=== PATIENT | female | born 1935 | race Caucasian/White ===

== ENCOUNTER → 2016-07-26 | Outpatient (CLI) | payer MEDICARE, OTHER ==
[~2016-07-26] MED LIST: ACET50TAOT PO; ALBU17IN2 NEB; ALBUTEROL INH; AMLO5TAB2 PO; ASPI81TA85 PO; B-12500T2 PO; CALC500T36 PO; CEFT250T8 PO; CLOP75TA2 PO; COLA100C PO; COLA50CA3 PO; COUM2.5T11 PO; DEPA500T2 PO; FLON0.054; LEVO25TA5 PO; LEVO25TA7 PO; MAGN400T5 PO; MICR10CA PO; MILKSUS PO; MIRA3350 PO; MUCI600T34 PO; MULTTAB4 PO; PLAV75TA38 PO; PROA1AER INH; PROTPAK PO; REFR1DRO8 OU; SENO8.6T2 PO; TYLE325T5 PO; VITA-130 PO; VITA1CAP2 PO; VITMTA PO; ZETI10TA2 PO; ZETI10TA21 PO
[2016-07-26 13:00] LABS: BLOOD UREA NITROGEN 23 MG/DL (7-18); CREATININE FOR GFR 0.85 MG/DL (0.55-1.02); GLOMERULAR FILTRATION RATE > 60.0 (>32)
== END ==
LOC: M LAB 11:36
PROVIDERS: ATTEND Otolaryngology
DX: R22.1 Localized swelling, mass and lump, neck (principal)

== ENCOUNTER → 2016-07-26 | Outpatient (CLI) | payer MEDICARE, OTHER | LOC: M LAB 08:46 | PROVIDERS: ATTEND Otolaryngology | DX: R22.1 Localized swelling, mass and lump, neck (principal) ==

== ENCOUNTER → 2016-07-31 | Outpatient (CLI) | payer MEDICARE, OTHER ==
[~2016-07-31] MED LIST changes: +ISOVUE-370 76% 100ML VIAL (Q9967) As Ordered ONE
--- NOTE | 2016-07-31 11:10 | REP ---
CT NECK WITH CONTRAST: HISTORY: Neck mass. Contrast: Isovue 370, 75 mL. A BB was placed on the anterior neck at the level of the thyroid gland. The naso- and oropharynx and subglottic trachea are normal in appearance. A small 3.5 mm right internal pharyngocele is present. A small 2 mm left internal laryngocele is present. The salivary and thyroid glands are normal. Small lymph nodes less than 1 cm in size are present in the posterior triangles and submandibular areas. Atherosclerotic calcification is present at the right carotid bifurcation. Degenerative change is present in the cervical spine. The lung apices are clear. A retention cyst or polyp is present in the right maxillary sinus. IMPRESSION: There is no neck mass or adenopathy. Signed by Dwayne De La Cruz MD 07/31/2016 11:17 A
== END ==
LOC: M RAD 09:01
PROVIDERS: ATTEND Otolaryngology
DX: R22.1 Localized swelling, mass and lump, neck (principal)
CPT/HCPCS: 70491; Q9967

== ENCOUNTER → 2016-08-02 | Outpatient (CLI) | payer MEDICARE, OTHER ==
[~2016-08-02] MED LIST changes: -ISOVUE-370 76% 100ML VIAL (Q9967) As Ordered ONE
--- NOTE | 2016-08-02 13:02 | REPMRS ---
Patient History The patient states she had a clinical breast exam in 06/28 Patient is postmenopausal and has history of skin cancer. Family history of breast cancer in sister at age 50 or over, unknown cancer in maternal uncle at age 50 or over, and breast cancer in niece at age 50 or over. Benign excisional biopsy of the left breast, 2001. Digital Woman Screen Mammo: August 02, 2016 - Exam #: [id number] Bilateral CC and MLO view(s) were taken. Technologist: Pattie Washington, Technologist Prior study comparison: June 29, 2015, digital woman screen mammo performed at [facility]. July 13, 2014, digital woman screen mammo performed at [facility]. FINDINGS: There are scattered fibroglandular densities. There has been no change in the appearance of the mammogram from the prior studies. There is a mild amount of residual fibroglandular tissue which is fairly symmetric. There is no interval development of dominant mass, architectural distortion, or clustered microcalcification suggestive of malignancy. ASSESSMENT: BI-RADS/ACR category 1 mammogram. Negative. Recommendation Routine screening mammogram in 1 year (for women over age 40). This mammogram was interpreted with the aid of an FDA-approved computer-aided dectection system. Electronically Signed By: Blair Coker MD 08/02/16 [id number]
== END ==
LOC: M WHC 11:56
PROVIDERS: ATTEND Obstetrics & Gynecology
DX: Z12.31 Encounter for screening mammogram for malignant neoplasm of breast (principal); Z13.820 Encounter for screening for osteoporosis; Z80.3 Family history of malignant neoplasm of breast; Z85.828 Personal history of other malignant neoplasm of skin

== ENCOUNTER → 2016-08-05 | Outpatient (REF) | payer MEDICARE, OTHER ==
[2016-08-05 14:40] LABS: ALBUMIN 3.5 GM/DL (3.2-5.2); ALBUMIN/GLOBULIN RATIO 1.17 (1.00-1.93); ALKALINE PHOSPHATASE 126 U/L (45-117); ALT/SGPT 35 U/L (12-78); ANION GAP 7 MEQ/L (8-16); AST/SGOT 31 U/L (15-37); BILIRUBIN,TOTAL 0.4 MG/DL (0.2-1.0); BLOOD UREA NITROGEN 19 MG/DL (7-18); CALCIUM LEVEL 8.4 MG/DL (8.8-10.2); CARBON DIOXIDE LEVEL 31 MEQ/L (21-32); CHLORIDE LEVEL 106 MEQ/L (98-107); CHOLESTEROL LEVEL 174 MG/DL (<200); CREATININE FOR GFR 0.82 MG/DL (0.55-1.02); FREE T4 0.99 NG/DL (0.76-1.46); GLOMERULAR FILTRATION RATE > 60.0 (>32); GLUCOSE, FASTING 95 MG/DL (83-110); POTASSIUM SERUM 4.1 MEQ/L (3.5-5.1); SODIUM LEVEL 144 MEQ/L (136-145); TOTAL PROTEIN 6.5 GM/DL (6.4-8.2); TRIGLYCERIDES LEVEL 97 MG/DL (<150)
== END ==
LOC: M SFHCPLAZ 09:34
PROVIDERS: ATTEND Family Medicine
DX: I11.9 Hypertensive heart disease without heart failure (principal); E03.9 Hypothyroidism, unspecified; E11.29 Type 2 diabetes mellitus with other diabetic kidney complication; E55.9 Vitamin D deficiency, unspecified

== ENCOUNTER → 2016-08-22 | Outpatient (CLI) | payer MEDICARE, OTHER ==
[~2016-08-22] MED LIST changes: -COLA100C PO; +COLA100C3 PO
--- NOTE | 2016-08-28 11:12 | DEXA ---
AP SPINE L1 - L4 0.692 -4.1 -1.4 LT FEMUR TOTAL 0.442 -4.5 -1.8 RT FEMUR TOTAL Right hip screws in place. TOTAL BODY TOTAL OTHER DUAL FEMUR FRAX* ASSESSMENT Risk factors: History of fracture (adult). 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 The density of the spine has decreased 13.7% since the initial exam on 1998. The spine density has decreased 15.7% since the most recent exam on 07/12/2013. The density of the left hip has decreased 20.1% since the initial exam on 1998. The density of the left hip has decreased 17.2% since the most recent exam on . FOLLOW-UP: Recommendation for the next bone density exam: 2 years. MEGHA
== END ==
LOC: M WHC 14:01
PROVIDERS: ATTEND Obstetrics & Gynecology
DX: Z13.820 Encounter for screening for osteoporosis (principal); M81.0 Age-related osteoporosis without current pathological fracture

== ENCOUNTER 2016-09-25 10:51 | Emergency (ER) | payer MEDICARE, OTHER ==
[~2016-09-25] VITALS: Ht 157.5 cm; Wt 37.2 kg
[2016-09-25] MEDS ORDERED: ASPIRIN 81 MG CHEW TABLET PO ONE (11:00)
[2016-09-25] MEDS ORDERED: CLON0.5T PO (11:10)
[2016-09-25] MEDS ORDERED: ASPI1TAB PO (11:10)
[2016-09-25] MEDS ORDERED: CINN500C9 PO (11:10)
[2016-09-25] MEDS ORDERED: CLOP75TA2 PO (11:10)
[2016-09-25] MEDS ORDERED: ERGO500014 PO (11:10)
[2016-09-25] MEDS ORDERED: ATOR40TA PO (11:10)
[2016-09-25] MEDS ORDERED: TURMCAP PO (11:10)
[2016-09-25 11:27] LABS: BASO % 0.8 % (0.0-1.0); EOS # 0.2 K/mm3 (0.0-0.50); EOS % 3.4 % (0.0-3.0); LARGE UNSTAINED CELL # 0.1 K/mm3 (0.0-0.4); LARGE UNSTAINED CELL % 2.2 % (0.0-4.0); LYMPH # 1.2 K/mm3 (1.5-4.5); LYMPH % 18.8 % (24.0-44.0); MEAN CORPUSCULAR HEMOGLOBIN 30.9 pg (27.0-33.0); MEAN CORPUSCULAR HGB CONC 33.6 g/dl (32.0-36.5); MONO # 0.5 K/mm3 (0.0-0.8); MONO % 7.9 % (0.0-5.0); NEUTROPHILS # 3.9 K/mm3 (1.8-7.7); NEUTROPHILS % 66.9 % (36.0-66.0); PLATELET COUNT, AUTOMATED 254 k/mm3 (150-450); RED CELL DISTRIBUTION WIDTH 13.2 % (11.5-14.5); WHITE BLOOD COUNT 5.8 K/mm3 (4.0-10.0)
[2016-09-25 11:52] LABS: ANION GAP 7 MEQ/L (8-16); BLOOD UREA NITROGEN 25 MG/DL (7-18); CALCIUM LEVEL 8.2 MG/DL (8.8-10.2); CARBON DIOXIDE LEVEL 28 MEQ/L (21-32); CHLORIDE LEVEL 105 MEQ/L (98-107); CREATININE FOR GFR 0.89 MG/DL (0.55-1.02); GLOMERULAR FILTRATION RATE > 60.0 (>32); GLUCOSE, FASTING 64 MG/DL (83-110); POTASSIUM SERUM 4.1 MEQ/L (3.5-5.1); SODIUM LEVEL 140 MEQ/L (136-145)
[2016-09-25] MEDS ORDERED: ISOVUE-370 76% 100ML VIAL (Q9967) As Ordered ONE (12:22)
--- NOTE | 2016-09-25 12:25 | REP ---
Portable chest: Single view. History: Chest pain Comparison study: October 16, 2015. Findings: The lungs are somewhat hyperinflated but free of infiltrate. Pleural angles are sharp. Heart size is normal. There is minimal linear fibrosis versus plate-like atelectasis in the right base. The aorta is calcific. No significant bony abnormality is seen. Impression: Hyperinflation. Minimal linear fibrosis versus plate-like atelectasis right base. Otherwise no active disease. Signed by Pankaj Muhammad MD 09/25/2016 12:55 P
--- NOTE | 2016-09-25 12:51 | REP ---
Clinical: Chest pain. Comparison: 09/28/2015. Technique: Axial contrast enhanced images from the thoracic inlet to the upper abdomen using 100 ml Isovue 370 intravenous contrast material with multiplanar re-formations. Findings: Satisfactory enhancement of the pulmonary vasculature is achieved and no filling defects are identified to suggest pulmonary embolus. Further evaluation of the mediastinum demonstrates atherosclerotic changes to the thoracic aorta without aneurysm or dissection and relatively normal appearance of the heart/pericardium. The bilateral lung ocampo demonstrate chronic emphysematous changes, scattered interstitial changes and scarring, as well as bronchiectasis and chronic mucous plugging primarily involving the basilar right middle lobe and lingula. Findings appear relatively similar to 09/28/2015. There is a new irregular nodular density in the anterobasilar right lower lobe measuring roughly 15 mm which warrants followup. No obvious adenopathy. No pleural effusion. No pneumothorax. Skeletal structures demonstrate age-related degenerative changes. Impression: 1. No evidence for pulmonary embolus. 2. Diffuse chronic changes as described above including foci of chronic mucous plugging predominate right middle lobe and lingula. 3. 15 mm irregular area of density in the anterobasilar right lower lobe warrants followup examination in 3-6 months. Signed by Finn Escobar MD 09/25/2016 12:43 P
[2016-09-25 16:13] VITALS: BP 135/64
--- NOTE | 2016-09-26 08:00 | ECGEPIP ---
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
== END 2016-09-25 16:15 | disposition home or self-care (01) ==
LOC: M ED 13:14
DX: R07.9 Chest pain, unspecified (principal); I10 Essential (primary) hypertension; E78.5 Hyperlipidemia, unspecified; M81.0 Age-related osteoporosis without current pathological fracture
CPT/HCPCS: 36415; 71010; 71275; 80048; 82550; 82553; 83880; 84484; 85025; 93005; 93041; 94760; 99285; Q9967

== ENCOUNTER → 2016-11-25 | Outpatient (CLI) | payer MEDICARE, OTHER ==
[~2016-11-25] MED LIST changes: +ASPI1TAB PO; +ATOR40TA75 PO; +CINN500C9 PO; +CLON0.5T PO; -COLA100C3 PO; +COLA100C5 PO; -COUM2.5T11 PO; +COUM2.5T17 PO; +ERGO500014 PO; +FOSA70TA PO; -MUCI600T34 PO; +MUCI600T37 PO; +PLAV1TAB2 PO; -PLAV75TA38 PO; -PROA1AER INH; +PROAAER10 INH; -SENO8.6T2 PO; +SENO8.6T5 PO; +TURMCAP PO; -VITA-130 PO; +VITA500T PO; -ZETI10TA2 PO; +ZETI10TA30 PO
--- NOTE | 2016-11-25 07:50 | REP ---
CT of the chest without IV contrast: Comparisons are 09/25/2016, 09/28/2015 and 11/24/2012. On 09/25/2069 there is a spiculated 15 mm nodule like density inferiorly anteriorly in the right lung on image 77. On the study today this density has decreased in size and density compatible with transient atelectasis. There are several other nodule like densities inferiorly in the right middle lobe associated with bronchi compatible with bronchial mucus plugging. This is unchanged from both prior studies. Bronchiectasis is again noted, particularly in the lower lobes. The mucous plugging involves ectatic bronchi predominately in the right middle lobe and lingula, as previously. There is extensive bullous replacement lung parenchyma compatible with bullous emphysema. This is unchanged. There are no acute infiltrates or effusions. There is a new focal density in the right lower lobe on image 70 measuring 16 x 6 mm, not present previously, focal atelectasis versus lung nodule. Follow-up is recommended. There is no mediastinal adenopathy. No axillary adenopathy. In the absence of IV contrast the study is insensitive for hilar adenopathy. The thoracic aorta is unremarkable. Cardiac size is normal. The visualized upper abdominal contents are unremarkable. There is no adrenal mass. Impression: The spiculated nodular density noted on 09/25/2016 in the right lung has decreased in size and density, compatible with resolving atelectasis. There is bronchiectasis, predominately in the lingula and right middle lobe as previously. There are focal zones of bronchial mucous plugging within the areas of bronchiectasis, as previously. There is a new focal elongated density posteriorly in the right lung on image 70 measuring 6 x 16 mm. This could represent atelectasis or a new lung nodule. Follow-up is recommended. There is bullous replacement lung parenchyma as previously compatible with bullous emphysema. Signed by Blair Chow MD 11/25/2016 07:42 A
== END ==
LOC: M RAD 07:09
PROVIDERS: ATTEND Internal Medicine
DX: R91.1 Solitary pulmonary nodule (principal)

== ENCOUNTER → 2016-12-19 | Outpatient (REF) | payer MEDICARE, OTHER | LOC: M LAB REF 12:03 → M SFHCLERA 12:03 | PROVIDERS: ATTEND Dermatology | DX: D22.5 Melanocytic nevi of trunk (principal) | CPT/HCPCS: 11100; 17000; 17110; 88305; G0463 ==

== ENCOUNTER → 2016-12-23 | Outpatient (CLI) | payer MEDICARE, OTHER ==
[2016-12-23 16:22] LABS: BLOOD UREA NITROGEN 27 MG/DL (7-18); CREATININE FOR GFR 0.79 MG/DL (0.55-1.02); GLOMERULAR FILTRATION RATE > 60.0 (>32)
== END ==
LOC: M LAB 15:12
PROVIDERS: ATTEND Otolaryngology
DX: R49.8 Other voice and resonance disorders (principal)

== ENCOUNTER → 2016-12-24 | Outpatient (CLI) | payer MEDICARE, OTHER ==
[~2016-12-24] MED LIST changes: +ISOVUE-370 76% 100ML VIAL (Q9967) As Ordered ONE
--- NOTE | 2016-12-24 18:35 | REP ---
Soft tissue CT study of the neck with IV contrast: History: Dysphonia. Question neoplasm. Comparison study is from July 31, 2016. CT contrast dose: 75 ml of Isovue [address] findings: No glottic or subglottic airway lesion is seen. There is, however, a supraglottic low density nodular thickening in the left side of the epiglottis. This measures 10 mm in right to left dimension by 7 mm anterior to posterior by 9 mm cranial to caudal. This is not apparent on a previous study. Thyroid lobes are homogeneous and unchanged in configuration. Submandibular and parotid glands are unremarkable and symmetric. There is a mucous retention cyst in the right maxillary sinus. Visualized paranasal sinuses are otherwise clear. Impression: Low density cyst or nodule in the left side of the epiglottis, 7 x 10 x 9 mm. Supraglottic malignancy cannot be excluded. Consider endoscopic and histologic correlation. No adenopathy. Signed by Pankaj Muhammad MD 12/25/2016 07:59 A
== END ==
LOC: M RAD 16:23
PROVIDERS: ATTEND Otolaryngology
DX: R93.3 Abnormal findings on diagnostic imaging of other parts of digestive tract (principal)
CPT/HCPCS: 70491; Q9967

== ENCOUNTER → 2017-01-21 | Outpatient (REF) | payer MEDICARE, OTHER ==
[~2017-01-21] MED LIST changes: -ISOVUE-370 76% 100ML VIAL (Q9967) As Ordered ONE
[2017-01-21 12:40] LABS: ALBUMIN 3.7 GM/DL (3.2-5.2); ALBUMIN/GLOBULIN RATIO 1.06 (1.00-1.93); ALKALINE PHOSPHATASE 106 U/L (45-117); ALT/SGPT 38 U/L (12-78); ANION GAP 4 MEQ/L (8-16); AST/SGOT 23 U/L (15-37); BILIRUBIN,TOTAL 0.5 MG/DL (0.2-1.0); BLOOD UREA NITROGEN 26 MG/DL (7-18); CALCIUM LEVEL 9.2 MG/DL (8.8-10.2); CARBON DIOXIDE LEVEL 33 MEQ/L (21-32); CHLORIDE LEVEL 105 MEQ/L (98-107); CREATININE FOR GFR 0.88 MG/DL (0.55-1.02); GLOMERULAR FILTRATION RATE > 60.0 (>32); GLUCOSE, FASTING 56 MG/DL (83-110); POTASSIUM SERUM 4.3 MEQ/L (3.5-5.1); SODIUM LEVEL 142 MEQ/L (136-145); TOTAL PROTEIN 7.2 GM/DL (6.4-8.2)
== END ==
LOC: M SFHCPLAZ 09:49
PROVIDERS: ATTEND Internal Medicine
DX: I11.9 Hypertensive heart disease without heart failure (principal)
CPT/HCPCS: 36415; 80053; G0463

== ENCOUNTER 2017-01-30 08:51 | Day surgery (SDC) | payer MEDICARE, OTHER ==
[~2017-01-30] VITALS: Ht 158.8 cm; Wt 38.0 kg
[2017-01-30] VITALS (7 sets, daily range): BP systolic 116–141; BP diastolic 58–73
[~2017-01-30 08:51] MED LIST changes: -FOSA70TA PO
[2017-01-30] MEDS ORDERED: dexameTHASONE 4 MG/ML 1ML VIAL (J1100) IV ONE (09:00)
[2017-01-30] MEDS ORDERED: LR 1,000 ML IV SCH ×3 (09:00→12:00)
[2017-01-30] MEDS ORDERED: FOSA70TA PO (09:39)
[2017-01-30] MEDS ORDERED: LIDOCAINE 2% INJ 100 MG/5 ML SDV (FOR ANES.) As Ordered ONE (09:46)
[2017-01-30] MEDS ORDERED: PROPOFOL 200 MG/20 ML VIAL As Ordered ONE ×2 (09:46→10:20)
[2017-01-30] MEDS ORDERED: ROCURONIUM BROMIDE 50 MG/5 ML VIAL/SYRINGE As Ordered ONE (09:46)
[2017-01-30] MEDS ORDERED: ONDANSETRON 4MG/2ML VIAL (J2405) As Ordered ONE (09:46)
[2017-01-30] MEDS ORDERED: MIDAZOLAM INJ 2 MG/2 ML VIAL (J2250) As Ordered ONE (09:46)
[2017-01-30] MEDS ORDERED: fentaNYL 100 MCG/2 ML INJECTION (J3010) As Ordered ONE (09:46)
[2017-01-30] MEDS ORDERED: OXYMETAZOLINE NASAL SPRAY (AFRIN) As Ordered ONE (10:30)
[2017-01-30] MEDS ORDERED: LIDOCAINE W/EPINEPHRINE 1% 20ML VIAL As Ordered ONE (10:30)
[2017-01-30] MEDS ORDERED: ONDANSETRON 4MG/2ML VIAL (J2405) IV PRN ×2 (12:00→16:15)
[2017-01-30] MEDS ORDERED: fentaNYL 100 MCG/2 ML INJECTION (J3010) IV PRN (12:00)
[2017-01-30] MEDS ORDERED: CEPHALEXIN 500 MG CAP PO ONE (12:00)
[2017-01-30] MEDS ORDERED: ACETAMINOPHEN/CODEINE 12.5 ML UDC As Ordered ONE (12:43)
[2017-01-30] MEDS ORDERED: ACETAMINOPHEN/CODEINE 12.5 ML UDC PO ONE (13:00)
[2017-01-30] MEDS ORDERED: ACETAMINOPHEN TAB 650MG DOSE (2X325MG) PO PRN (16:15)
[2017-01-30] MEDS: CEPHALEXIN 500 MG CAP PO SCH (22:34)
[2017-01-31] MEDS: CHLORHEXIDINE ORAL RINSE 0.12%/15ML 120ML BOTTLE SSP SCH ×2 (01:18→09:00)
[2017-01-31 02:00] VITALS: BP 115/57
[2017-01-31 06:00] VITALS: BP 117/58
[2017-01-31] MEDS ORDERED: CHLORHEXIDINE ORAL RINSE 0.12%/15ML 120ML BOTTLE SSP SCH ×2 (09:00→09:18)
[2017-01-31] MEDS: CEPHALEXIN 500 MG CAP PO SCH (09:30)
--- NOTE | 2017-02-06 23:16 | RO ---
DATE OF PROCEDURE: 01/30/2017 PREOPERATIVE DIAGNOSES: Left epiglottic mass and dysphagia. POSTOPERATIVE DIAGNOSES: Left epiglottic mass and dysphagia. PROCEDURE PERFORMED: Direct suspension microlaryngoscopy with biopsy and marsupialization of the left epiglottic cyst on the lingual side. SURGEON: Darrel Vyas MD FURNITURE REMOVALIST: ANESTHESIA: General. CLINICAL PREAMBLE: This 81-year-old man presented to the office complaining of globus sensation in the throat. CT neck revealed a cystic-like mass over the left epiglottic base on the lingual side. Management options including the surgery listed above have been discussed. Patient understood and consented to the procedure. DESCRIPTION OF PROCEDURE: Patient was identified in preoperative holding and brought to the operating room in stable condition. In supine position on the operating room table, patient received general anesthesia followed orotracheal intubation without incident. Patient was prepped and draped in the usual fashion for the procedure. Upper dentition was protected using a tooth guard. Bimanual palpation of the oral cavity, oral tongue, base of tongue, lateral and posterior pharyngeal wall were unremarkable for mass lesion. Using the Dedo-Pilling laryngoscope, inspection of the mucosa of the oral cavity, oropharynx, base of tongue, epiglottis, aryepiglottic fold, piriform sinuses, true and false cords, as well as postcricoid region was carried out. A swelling with smooth mucosa was noted over the lingual aspect of the base of the left epiglottis. The Dedo-Pilling laryngoscope was suspended on a New stand. Microforceps were used to obtain biopsy from the swelling at the base of the left epiglottis on the lingual side. Whitish fluid was expressed upon biopsy of the mass. Additional decompression of the cystic mass was then carried out. Hemostasis was achieved using cottonoid pledgets soaked in Afrin solution. At the end of procedure, sponge and instruments counts were correct. No complication was encountered. Estimated blood loss less than 1 mL. General anesthesia was reversed. Patient was extubated and brought to recovery room in stable condition.
== END 2017-01-31 14:18 | disposition home or self-care (01) ==
LOC: M SDC 08:51 → M MSPAV 17:15 → M SDC 01-31 14:18
PROVIDERS: ATTEND Otolaryngology
DX: R22.1 Localized swelling, mass and lump, neck (principal); R49.8 Other voice and resonance disorders; G25.0 Essential tremor; I10 Essential (primary) hypertension; E78.5 Hyperlipidemia, unspecified; K21.9 Gastro-esophageal reflux disease without esophagitis; J44.9 Chronic obstructive pulmonary disease, unspecified; Z79.899 Other long term (current) drug therapy; Z88.0 Allergy status to penicillin; Z88.2 Allergy status to sulfonamides; Z88.8 Allergy status to other drugs, medicaments and biological substances
CPT/HCPCS: 31536; 88305; J1100; J2250; J2405; J3010

== ENCOUNTER → 2017-02-12 | Outpatient (REF) | payer MEDICARE, OTHER ==
[~2017-02-12] MED LIST changes: +FOSA70TA PO
== END ==
LOC: M SFHCLERA 11:36
PROVIDERS: ATTEND Dermatology
DX: L82.1 Other seborrheic keratosis (principal)

== ENCOUNTER → 2017-02-27 | Outpatient (CLI) | payer MEDICARE, OTHER ==
--- NOTE | 2017-02-27 15:03 | REP ---
CT CHEST WITHOUT IV CONTRAST: CT chest performed without IV contrast. Sagittal and coronal reconstruction images are performed. Comparison made with multiple prior exams, most recent of which is 11/25/2016. Bilateral emphysematous changes are noted with scattered interstitial fibrosis. There is mild scattered bronchiectasis bilaterally which is of a more moderate degree in the right middle lobe and in the lingula. Inspissated secretions and opacification are seen in the dilated bronchioles, particularly in the right middle lobe and lingula with mild increase since prior study. There is no pericardial effusion. The heart is normal in size. There is mild pericardial fluid. No definite adenopathy is seen. There are atherosclerotic calcifications of the thoracic aorta without aneurysm. There appears to be a tiny cyst in the right lobe of the liver. There are degenerative changes of the spine. IMPRESSION: Chronic emphysematous and bronchiectatic changes. Inspissated secretions in the dilated bronchioles in the right middle lobe and left lower lobe have slightly increased since prior study. The elongated opacity in the right lower lobe, for which followup was recommended on the prior study, is no longer seen and appears to have represented a band-like area of atelectasis or infiltrate which has resolved. Signed by Blair Coker MD 02/27/2017 05:37 P
== END ==
LOC: M RAD 12:23
PROVIDERS: ATTEND Internal Medicine Pulmonary Disease
DX: R91.8 Other nonspecific abnormal finding of lung field (principal)

== ENCOUNTER → 2017-06-23 | Outpatient (CLI) | payer MEDICARE, OTHER ==
[2017-06-23 09:56] LABS: ESTIMATED AVERAGE GLUCOSE 126 MG/DL (60-110)
[2017-06-23 10:18] LABS: ALBUMIN 3.6 GM/DL (3.2-5.2); ALBUMIN/GLOBULIN RATIO 1.03 (1.00-1.93); ALKALINE PHOSPHATASE 103 U/L (45-117); ALT/SGPT 32 U/L (12-78); ANION GAP 7 MEQ/L (8-16); AST/SGOT 26 U/L (7-37); BILIRUBIN,TOTAL 0.4 MG/DL (0.2-1.0); BLOOD UREA NITROGEN 28 MG/DL (7-18); CALCIUM LEVEL 8.5 MG/DL (8.8-10.2); CARBON DIOXIDE LEVEL 31 MEQ/L (21-32); CHLORIDE LEVEL 106 MEQ/L (98-107); CHOLESTEROL LEVEL 186 MG/DL (<200); CHOLESTEROL RISK RATIO 2.325 (<5); GLOMERULAR FILTRATION RATE 56.5 (>32); GLUCOSE, FASTING 88 MG/DL (70-100); HDL CHOLESTEROL 80 MG/DL (>40); LDL CHOLESTEROL 93.8 MG/DL (<100); MAGNESIUM LEVEL 2.4 MG/DL (1.8-2.4); NON-HDL-C 106 MG/DL; POTASSIUM SERUM 4.6 MEQ/L (3.5-5.1); SODIUM LEVEL 144 MEQ/L (136-145); TOTAL PROTEIN 7.1 GM/DL (6.4-8.2); TRIGLYCERIDES LEVEL 61 MG/DL (<150)
[2017-06-23 10:28] LABS: MALB URINE SIEMENS 26.7 MG/L; MAU/CREAT RATIO 14.4 MCG/MG (0.0-30.0)
== END ==
LOC: M LAB 08:29
DX: I11.9 Hypertensive heart disease without heart failure (principal); Z79.899 Other long term (current) drug therapy
CPT/HCPCS: 83735

== ENCOUNTER → 2017-08-07 | Outpatient (CLI) | payer MEDICARE, OTHER | LOC: M WHC 09:36 | DX: Z12.31 Encounter for screening mammogram for malignant neoplasm of breast (principal); Z80.3 Family history of malignant neoplasm of breast | CPT/HCPCS: 77067 ==

== ENCOUNTER 2017-10-26 02:20 | Inpatient (IN) | payer MEDICARE, OTHER ==
[2017-10-26 03:19] LABS: BASO % 0.7 % (0.0-1.0); EOS # 0.2 10^3/uL (0.0-0.50); EOS % 4.3 % (0.0-3.0); HEMATOCRIT 42.7 % (36.0-47.0); HEMOGLOBIN 14.3 g/dl (12.0-15.5); IMMATURE GRANULOCYTE % 0.2 % (0-3.0); LYMPH # 1.1 10^3/uL (1.5-4.5); LYMPH % 19.6 % (24.0-44.0); MEAN CORPUSCULAR HEMOGLOBIN 30.2 pg (27.0-33.0); MEAN CORPUSCULAR HGB CONC 33.5 g/dl (32.0-36.5); MEAN CORPUSCULAR VOLUME 90.1 fl (80.0-96.0); MONO # 0.6 10^3/uL (0.0-0.8); NEUTROPHILS # 3.7 10^3/uL (1.8-7.7); NEUTROPHILS % 65.2 % (36.0-66.0); PLATELET COUNT, AUTOMATED 194 10^3/uL (150-450); RED BLOOD COUNT 4.74 10^6/uL (4.00-5.40); WHITE BLOOD COUNT 5.6 10^3/uL (4.0-10.0)
[2017-10-26] MEDS ORDERED: ISOVUE-370 76% 100ML VIAL (Q9967) As Ordered (03:54)
[2017-10-26 04:00] LABS: ANION GAP 8 MEQ/L (8-16); BLOOD UREA NITROGEN 34 MG/DL (7-18); CALCIUM LEVEL 8.4 MG/DL (8.8-10.2); CARBON DIOXIDE LEVEL 29 MEQ/L (21-32); CHLORIDE LEVEL 107 MEQ/L (98-107); CREATININE FOR GFR 0.94 MG/DL (0.55-1.30); GLOMERULAR FILTRATION RATE > 60.0 (>32); GLUCOSE, FASTING 106 MG/DL (70-100); NT-PRO BNP 120 PG/ML (<450); POTASSIUM SERUM 3.9 MEQ/L (3.5-5.1); SODIUM LEVEL 144 MEQ/L (136-145)
[2017-10-26] MEDS: LevoFLOXacin IV 500 MG in APPROPRIATE DILUENT 1 EA IV (07:52)
[2017-10-26 09:20] LABS: INR 0.93; PROTHROMBIN TIME 12.5 SECONDS (12.4-14.5)
[2017-10-26] MEDS ORDERED: PILL CRUSHER/CUTTER 1 EACH XX (10:15)
[2017-10-26] MEDS: AZITHROMYCIN INJ 500 MG, VIAL MATE ADAPTER 1 EACH in D5W 250 ML IV (10:45)
[2017-10-26] MEDS: amLODIPine 10 MG TAB PO (10:51)
[2017-10-26] MEDS: ASPIRIN 81 MG ENTERIC TAB PO (10:51)
[2017-10-26] MEDS: LEVOTHYROXINE 25MCG TABLET (0.025MG) PO (10:51)
[2017-10-26] MEDS: POTASSIUM CHLORIDE 10 MEQ SR TABLET PO ×2 (10:51→21:46)
[2017-10-26] MEDS: ATORVASTATIN 20 MG TAB PO (10:52)
[2017-10-26] MEDS: ACETAMINOPHEN TAB 650MG DOSE (2X325MG) PO ×2 (10:53→22:02)
[2017-10-26] MEDS: cefTRIAXone SOD 2 GM in D5W MINI-BAG PLUS 50 ML IV (13:00)
[2017-10-26] MEDS: CLOPIDOGREL 75 MG TAB PO (14:15)
[2017-10-26] MEDS: clonazePAM 0.5 MG TAB PO (21:55)
[2017-10-27 06:29] LABS: BASO % 0.4 % (0.0-1.0); EOS # 0.2 10^3/uL (0.0-0.50); EOS % 2.5 % (0.0-3.0); HEMATOCRIT 38.9 % (36.0-47.0); HEMOGLOBIN 12.9 g/dl (12.0-15.5); IMMATURE GRANULOCYTE % 0.3 % (0-3.0); LYMPH # 0.8 10^3/uL (1.5-4.5); LYMPH % 8.6 % (24.0-44.0); MEAN CORPUSCULAR HEMOGLOBIN 29.9 pg (27.0-33.0); MEAN CORPUSCULAR HGB CONC 33.2 g/dl (32.0-36.5); MONO # 0.8 10^3/uL (0.0-0.8); MONO % 8.1 % (0.0-5.0); NEUTROPHILS # 7.4 10^3/uL (1.8-7.7); NEUTROPHILS % 80.1 % (36.0-66.0); PLATELET COUNT, AUTOMATED 166 10^3/uL (150-450); RED BLOOD COUNT 4.32 10^6/uL (4.00-5.40); RED CELL DISTRIBUTION WIDTH 14.3 % (11.5-14.5); WHITE BLOOD COUNT 9.2 10^3/uL (4.0-10.0)
[2017-10-27 06:52] LABS: ALT/SGPT 32 U/L (12-78); ANION GAP 5 MEQ/L (8-16); AST/SGOT 23 U/L (7-37); BLOOD UREA NITROGEN 18 MG/DL (7-18); CARBON DIOXIDE LEVEL 28 MEQ/L (21-32); CHLORIDE LEVEL 109 MEQ/L (98-107); CREATININE FOR GFR 0.77 MG/DL (0.55-1.30); GLOMERULAR FILTRATION RATE > 60.0 (>32); GLUCOSE, FASTING 99 MG/DL (70-100); POTASSIUM SERUM 3.4 MEQ/L (3.5-5.1); SODIUM LEVEL 142 MEQ/L (136-145)
[2017-10-27 06:53] LABS: ALBUMIN 2.9 GM/DL (3.2-5.2); ALBUMIN/GLOBULIN RATIO 0.83 (1.00-1.93); ALKALINE PHOSPHATASE 82 U/L (45-117); BILIRUBIN,TOTAL 0.5 MG/DL (0.2-1.0); MAGNESIUM LEVEL 2.3 MG/DL (1.8-2.4); TOTAL PROTEIN 6.4 GM/DL (6.4-8.2)
[2017-10-27] MEDS: amLODIPine 10 MG TAB PO (08:14)
[2017-10-27] MEDS: ATORVASTATIN 20 MG TAB PO (08:14)
[2017-10-27] MEDS: POTASSIUM CHLORIDE 10 MEQ SR TABLET PO ×2 (08:14→21:56)
[2017-10-27] MEDS: CLOPIDOGREL 75 MG TAB PO (08:15)
[2017-10-27] MEDS: LEVOTHYROXINE 25MCG TABLET (0.025MG) PO (08:15)
[2017-10-27] MEDS: ASPIRIN 81 MG ENTERIC TAB PO (08:15)
[2017-10-27] MEDS: AZITHROMYCIN INJ 500 MG, VIAL MATE ADAPTER 1 EACH in D5W 250 ML IV (10:00)
[2017-10-27] MEDS: cefTRIAXone SOD 2 GM in D5W MINI-BAG PLUS 50 ML IV (11:00)
[2017-10-27] MEDS: clonazePAM 0.5 MG TAB PO (22:18)
[2017-10-27] MEDS: ACETAMINOPHEN TAB 650MG DOSE (2X325MG) PO (22:18)
[2017-10-28 06:58] LABS: BASO % 0.6 % (0.0-1.0); EOS # 0.3 10^3/uL (0.0-0.50); EOS % 3.9 % (0.0-3.0); HEMATOCRIT 38.4 % (36.0-47.0); HEMOGLOBIN 12.8 g/dl (12.0-15.5); IMMATURE GRANULOCYTE % 0.3 % (0-3.0); LYMPH # 0.8 10^3/uL (1.5-4.5); LYMPH % 11.8 % (24.0-44.0); MEAN CORPUSCULAR HGB CONC 33.3 g/dl (32.0-36.5); MEAN CORPUSCULAR VOLUME 90.1 fl (80.0-96.0); MONO # 0.8 10^3/uL (0.0-0.8); MONO % 11.2 % (0.0-5.0); NEUTROPHILS # 4.9 10^3/uL (1.8-7.7); NEUTROPHILS % 72.2 % (36.0-66.0); PLATELET COUNT, AUTOMATED 160 10^3/uL (150-450); RED BLOOD COUNT 4.26 10^6/uL (4.00-5.40); RED CELL DISTRIBUTION WIDTH 14.2 % (11.5-14.5); WHITE BLOOD COUNT 6.9 10^3/uL (4.0-10.0)
[2017-10-28 07:31] LABS: FOLATE 15.8 NG/ML (>5.4)
[2017-10-28 07:31] LABS: VITAMIN B12 LEVEL 913 PG/ML (247-911)
[2017-10-28 07:42] LABS: ALBUMIN 2.7 GM/DL (3.2-5.2); ALBUMIN/GLOBULIN RATIO 0.73 (1.00-1.93); ALKALINE PHOSPHATASE 81 U/L (45-117); ALT/SGPT 32 U/L (12-78); ANION GAP 8 MEQ/L (8-16); AST/SGOT 20 U/L (7-37); BILIRUBIN,TOTAL 0.4 MG/DL (0.2-1.0); BLOOD UREA NITROGEN 14 MG/DL (7-18); CARBON DIOXIDE LEVEL 26 MEQ/L (21-32); CHLORIDE LEVEL 111 MEQ/L (98-107); CREATININE FOR GFR 0.64 MG/DL (0.55-1.30); GLOMERULAR FILTRATION RATE > 60.0 (>32); GLUCOSE, FASTING 89 MG/DL (70-100); MAGNESIUM LEVEL 2.2 MG/DL (1.8-2.4); POTASSIUM SERUM 3.5 MEQ/L (3.5-5.1); SODIUM LEVEL 145 MEQ/L (136-145); TOTAL PROTEIN 6.4 GM/DL (6.4-8.2)
[2017-10-28] MEDS ORDERED: LevoFLOXacin IV 750 MG in APPROPRIATE DILUENT 1 EA IV (08:00)
[2017-10-28] MEDS: LEVOTHYROXINE 25MCG TABLET (0.025MG) PO (08:56)
[2017-10-28] MEDS ORDERED: CEFUROXIME 500 MG TAB PO (09:00)
[2017-10-28] MEDS: CLOPIDOGREL 75 MG TAB PO (10:01)
[2017-10-28] MEDS: ATORVASTATIN 20 MG TAB PO (10:01)
[2017-10-28] MEDS: ASPIRIN 81 MG ENTERIC TAB PO (10:01)
[2017-10-28] MEDS: POTASSIUM CHLORIDE 10 MEQ SR TABLET PO ×2 (10:02→21:22)
[2017-10-28] MEDS: amLODIPine 10 MG TAB PO (10:02)
[2017-10-28] MEDS: CEFDINIR 300 MG CAP (OMNICEF) PO ×2 (10:02→21:22)
[2017-10-28] MEDS: AZITHROMYCIN 250 MG TAB PO (10:02)
[2017-10-28] MEDS: SENOKOT S TAB PO (10:03)
[2017-10-28] MEDS: clonazePAM 0.5 MG TAB PO (21:23)
[2017-10-28] MEDS: ACETAMINOPHEN TAB 650MG DOSE (2X325MG) PO (21:23)
[2017-10-29] MEDS: LEVOTHYROXINE 25MCG TABLET (0.025MG) PO (05:31)
[2017-10-29 06:43] LABS: BASO # 0.1 10^3/uL (0.0-0.2); BASO % 1.1 % (0.0-1.0); EOS # 0.4 10^3/uL (0.0-0.50); EOS % 6.5 % (0.0-3.0); HEMATOCRIT 37.9 % (36.0-47.0); HEMOGLOBIN 12.8 g/dl (12.0-15.5); IMMATURE GRANULOCYTE % 0.2 % (0-3.0); LYMPH # 0.7 10^3/uL (1.5-4.5); LYMPH % 12.3 % (24.0-44.0); MEAN CORPUSCULAR HEMOGLOBIN 30.4 pg (27.0-33.0); MEAN CORPUSCULAR HGB CONC 33.8 g/dl (32.0-36.5); MONO # 0.6 10^3/uL (0.0-0.8); MONO % 11.4 % (0.0-5.0); NEUTROPHILS # 3.7 10^3/uL (1.8-7.7); NEUTROPHILS % 68.5 % (36.0-66.0); PLATELET COUNT, AUTOMATED 180 10^3/uL (150-450); RED BLOOD COUNT 4.21 10^6/uL (4.00-5.40); RED CELL DISTRIBUTION WIDTH 14.2 % (11.5-14.5); WHITE BLOOD COUNT 5.4 10^3/uL (4.0-10.0)
[2017-10-29 07:10] LABS: ALBUMIN 2.7 GM/DL (3.2-5.2); ALBUMIN/GLOBULIN RATIO 0.75 (1.00-1.93); ALKALINE PHOSPHATASE 75 U/L (45-117); ALT/SGPT 31 U/L (12-78); ANION GAP 6 MEQ/L (8-16); AST/SGOT 19 U/L (7-37); BILIRUBIN,TOTAL 0.3 MG/DL (0.2-1.0); BLOOD UREA NITROGEN 17 MG/DL (7-18); CALCIUM LEVEL 8.1 MG/DL (8.8-10.2); CARBON DIOXIDE LEVEL 27 MEQ/L (21-32); CHLORIDE LEVEL 111 MEQ/L (98-107); CREATININE FOR GFR 0.69 MG/DL (0.55-1.30); GLOMERULAR FILTRATION RATE > 60.0 (>32); GLUCOSE, FASTING 91 MG/DL (70-100); POTASSIUM SERUM 3.6 MEQ/L (3.5-5.1); SODIUM LEVEL 144 MEQ/L (136-145); TOTAL PROTEIN 6.3 GM/DL (6.4-8.2)
[2017-10-29] MEDS ORDERED: ISOVUE-370 76% 100ML VIAL (Q9967) As Ordered (08:58)
[2017-10-29] MEDS: POTASSIUM CHLORIDE 10 MEQ SR TABLET PO ×2 (09:44→21:08)
[2017-10-29] MEDS: amLODIPine 10 MG TAB PO (09:44)
[2017-10-29] MEDS: ATORVASTATIN 20 MG TAB PO (09:44)
[2017-10-29] MEDS: CLOPIDOGREL 75 MG TAB PO (09:44)
[2017-10-29] MEDS: ASPIRIN 81 MG ENTERIC TAB PO (09:45)
[2017-10-29] MEDS: CEFDINIR 300 MG CAP (OMNICEF) PO ×2 (09:45→21:07)
[2017-10-29] MEDS: AZITHROMYCIN 250 MG TAB PO (09:45)
[2017-10-29] MEDS: clonazePAM 0.5 MG TAB PO (22:09)
[2017-10-30] MEDS: LEVOTHYROXINE 25MCG TABLET (0.025MG) PO (05:47)
[2017-10-30 07:03] LABS: BASO # 0.1 10^3/uL (0.0-0.2); BASO % 0.8 % (0.0-1.0); EOS # 0.1 10^3/uL (0.0-0.50); EOS % 1.1 % (0.0-3.0); HEMATOCRIT 40.2 % (36.0-47.0); HEMOGLOBIN 13.7 g/dl (12.0-15.5); IMMATURE GRANULOCYTE % 0.2 % (0-3.0); LYMPH # 0.8 10^3/uL (1.5-4.5); LYMPH % 7.8 % (24.0-44.0); MEAN CORPUSCULAR HEMOGLOBIN 30.5 pg (27.0-33.0); MEAN CORPUSCULAR HGB CONC 34.1 g/dl (32.0-36.5); MEAN CORPUSCULAR VOLUME 89.5 fl (80.0-96.0); MONO # 0.6 10^3/uL (0.0-0.8); MONO % 6.4 % (0.0-5.0); NEUTROPHILS # 8.1 10^3/uL (1.8-7.7); NEUTROPHILS % 83.7 % (36.0-66.0); PLATELET COUNT, AUTOMATED 224 10^3/uL (150-450); RED BLOOD COUNT 4.49 10^6/uL (4.00-5.40); RED CELL DISTRIBUTION WIDTH 13.9 % (11.5-14.5); WHITE BLOOD COUNT 9.7 10^3/uL (4.0-10.0)
[2017-10-30 07:17] LABS: ALKALINE PHOSPHATASE 86 U/L (45-117); ALT/SGPT 30 U/L (12-78); ANION GAP 8 MEQ/L (8-16); AST/SGOT 21 U/L (7-37); BILIRUBIN,TOTAL 0.3 MG/DL (0.2-1.0); BLOOD UREA NITROGEN 24 MG/DL (7-18); CALCIUM LEVEL 8.2 MG/DL (8.8-10.2); CARBON DIOXIDE LEVEL 23 MEQ/L (21-32); CHLORIDE LEVEL 111 MEQ/L (98-107); CREATININE FOR GFR 0.82 MG/DL (0.55-1.30); GLOMERULAR FILTRATION RATE > 60.0 (>32); GLUCOSE, FASTING 117 MG/DL (70-100); MAGNESIUM LEVEL 2.1 MG/DL (1.8-2.4); POTASSIUM SERUM 3.8 MEQ/L (3.5-5.1); SODIUM LEVEL 142 MEQ/L (136-145); TOTAL PROTEIN 7.3 GM/DL (6.4-8.2)
[2017-10-30] MEDS: ASPIRIN 81 MG ENTERIC TAB PO (10:37)
[2017-10-30] MEDS: CEFDINIR 300 MG CAP (OMNICEF) PO ×2 (10:37→20:24)
[2017-10-30] MEDS: guaiFENesin ER 600 MG TAB PO (10:38)
[2017-10-30] MEDS: CLOPIDOGREL 75 MG TAB PO (10:38)
[2017-10-30] MEDS: POTASSIUM CHLORIDE 10 MEQ SR TABLET PO ×2 (10:38→20:23)
[2017-10-30] MEDS: amLODIPine 10 MG TAB PO (10:38)
[2017-10-30] MEDS: AZITHROMYCIN 250 MG TAB PO (10:38)
[2017-10-30] MEDS: ATORVASTATIN 20 MG TAB PO (10:39)
[2017-10-30] MEDS: SENOKOT S TAB PO (10:44)
[2017-10-30] MEDS: ALBUTEROL SULFATE 2.5 MG/0.5 ML INH NEB SOLN NEB ×2 (15:31→20:49)
[2017-10-30] MEDS: ACETAMINOPHEN TAB 650MG DOSE (2X325MG) PO (18:36)
[2017-10-30] MEDS: clonazePAM 0.5 MG TAB PO (21:49)
[2017-10-31] MEDS: ALBUTEROL SULFATE 2.5 MG/0.5 ML INH NEB SOLN NEB ×4 (02:00→21:36)
[2017-10-31] MEDS: LEVOTHYROXINE 25MCG TABLET (0.025MG) PO (05:21)
[2017-10-31] MEDS: ACETAMINOPHEN TAB 650MG DOSE (2X325MG) PO ×3 (05:23→22:17)
[2017-10-31 07:05] LABS: BASO # 0.1 10^3/uL (0.0-0.2); BASO % 1.2 % (0.0-1.0); EOS # 0.2 10^3/uL (0.0-0.50); EOS % 3.7 % (0.0-3.0); HEMATOCRIT 37.2 % (36.0-47.0); HEMOGLOBIN 12.7 g/dl (12.0-15.5); IMMATURE GRANULOCYTE % 0.2 % (0-3.0); LYMPH # 0.9 10^3/uL (1.5-4.5); LYMPH % 14.4 % (24.0-44.0); MEAN CORPUSCULAR HEMOGLOBIN 30.3 pg (27.0-33.0); MEAN CORPUSCULAR HGB CONC 34.1 g/dl (32.0-36.5); MEAN CORPUSCULAR VOLUME 88.8 fl (80.0-96.0); MONO # 0.6 10^3/uL (0.0-0.8); MONO % 10.5 % (0.0-5.0); NEUTROPHILS # 4.1 10^3/uL (1.8-7.7); PLATELET COUNT, AUTOMATED 224 10^3/uL (150-450); RED BLOOD COUNT 4.19 10^6/uL (4.00-5.40); RED CELL DISTRIBUTION WIDTH 14.1 % (11.5-14.5); WHITE BLOOD COUNT 5.9 10^3/uL (4.0-10.0)
[2017-10-31 07:31] LABS: ALBUMIN 2.8 GM/DL (3.2-5.2); ALBUMIN/GLOBULIN RATIO 0.68 (1.00-1.93); ALKALINE PHOSPHATASE 82 U/L (45-117); ALT/SGPT 26 U/L (12-78); ANION GAP 8 MEQ/L (8-16); AST/SGOT 17 U/L (7-37); BILIRUBIN,TOTAL 0.4 MG/DL (0.2-1.0); BLOOD UREA NITROGEN 17 MG/DL (7-18); CALCIUM LEVEL 8.2 MG/DL (8.8-10.2); CARBON DIOXIDE LEVEL 25 MEQ/L (21-32); CHLORIDE LEVEL 111 MEQ/L (98-107); CREATININE FOR GFR 0.73 MG/DL (0.55-1.30); GLOMERULAR FILTRATION RATE > 60.0 (>32); GLUCOSE, FASTING 94 MG/DL (70-100); MAGNESIUM LEVEL 2.2 MG/DL (1.8-2.4); POTASSIUM SERUM 3.9 MEQ/L (3.5-5.1); SODIUM LEVEL 144 MEQ/L (136-145); TOTAL PROTEIN 6.9 GM/DL (6.4-8.2)
[2017-10-31] MEDS: ASPIRIN 81 MG ENTERIC TAB PO (08:59)
[2017-10-31] MEDS: AZITHROMYCIN 250 MG TAB PO (08:59)
[2017-10-31] MEDS: CEFDINIR 300 MG CAP (OMNICEF) PO (08:59)
[2017-10-31] MEDS: ATORVASTATIN 20 MG TAB PO (08:59)
[2017-10-31] MEDS: POTASSIUM CHLORIDE 10 MEQ SR TABLET PO ×2 (08:59→20:35)
[2017-10-31] MEDS: amLODIPine 10 MG TAB PO (09:02)
[2017-10-31] MEDS: SODIUM CHLORIDE NASAL 0.65% SPRAY BTL (OCEAN) ×2 (16:30→20:35)
[2017-10-31] MEDS: ONDANSETRON 4MG/2ML VIAL (J2405) IV (18:40)
[2017-10-31] MEDS: clonazePAM 0.5 MG TAB PO (20:35)
[2017-11-01] MEDS: ALBUTEROL SULFATE 2.5 MG/0.5 ML INH NEB SOLN NEB ×4 (02:23→21:19)
[2017-11-01] MEDS: LEVOTHYROXINE 25MCG TABLET (0.025MG) PO (06:22)
[2017-11-01 07:23] LABS: BASO # 0.1 10^3/uL (0.0-0.2); EOS # 0.3 10^3/uL (0.0-0.50); EOS % 5.4 % (0.0-3.0); HEMATOCRIT 36.1 % (36.0-47.0); HEMOGLOBIN 11.8 g/dl (12.0-15.5); IMMATURE GRANULOCYTE % 0.3 % (0-3.0); LYMPH # 0.6 10^3/uL (1.5-4.5); LYMPH % 10.6 % (24.0-44.0); MEAN CORPUSCULAR HEMOGLOBIN 29.9 pg (27.0-33.0); MEAN CORPUSCULAR HGB CONC 32.7 g/dl (32.0-36.5); MEAN CORPUSCULAR VOLUME 91.6 fl (80.0-96.0); MONO # 0.6 10^3/uL (0.0-0.8); MONO % 9.6 % (0.0-5.0); NEUTROPHILS # 4.3 10^3/uL (1.8-7.7); NEUTROPHILS % 73.1 % (36.0-66.0); PLATELET COUNT, AUTOMATED 217 10^3/uL (150-450); RED BLOOD COUNT 3.94 10^6/uL (4.00-5.40); RED CELL DISTRIBUTION WIDTH 14.4 % (11.5-14.5); WHITE BLOOD COUNT 5.9 10^3/uL (4.0-10.0)
[2017-11-01 07:49] LABS: ALBUMIN 2.8 GM/DL (3.2-5.2); ALBUMIN/GLOBULIN RATIO 0.72 (1.00-1.93); ALKALINE PHOSPHATASE 78 U/L (45-117); ALT/SGPT 26 U/L (12-78); ANION GAP 6 MEQ/L (8-16); AST/SGOT 19 U/L (7-37); BILIRUBIN,TOTAL 0.3 MG/DL (0.2-1.0); BLOOD UREA NITROGEN 18 MG/DL (7-18); CALCIUM LEVEL 7.9 MG/DL (8.8-10.2); CARBON DIOXIDE LEVEL 29 MEQ/L (21-32); CHLORIDE LEVEL 109 MEQ/L (98-107); CREATININE FOR GFR 0.85 MG/DL (0.55-1.30); GLOMERULAR FILTRATION RATE > 60.0 (>32); GLUCOSE, FASTING 89 MG/DL (70-100); MAGNESIUM LEVEL 2.2 MG/DL (1.8-2.4); POTASSIUM SERUM 4.2 MEQ/L (3.5-5.1); SODIUM LEVEL 144 MEQ/L (136-145); TOTAL PROTEIN 6.7 GM/DL (6.4-8.2)
[2017-11-01] MEDS: ASPIRIN 81 MG ENTERIC TAB PO (08:40)
[2017-11-01] MEDS: amLODIPine 10 MG TAB PO ×2 (08:40→08:44)
[2017-11-01] MEDS: ATORVASTATIN 20 MG TAB PO (08:40)
[2017-11-01] MEDS: POTASSIUM CHLORIDE 10 MEQ SR TABLET PO ×2 (08:41→20:33)
[2017-11-01] MEDS: SODIUM CHLORIDE NASAL 0.65% SPRAY BTL (OCEAN) ×3 (08:42→20:34)
[2017-11-01] MEDS: ACETAMINOPHEN TAB 650MG DOSE (2X325MG) PO (20:34)
[2017-11-01] MEDS: clonazePAM 0.5 MG TAB PO (20:34)
[2017-11-02] MEDS: ALBUTEROL SULFATE 2.5 MG/0.5 ML INH NEB SOLN NEB ×4 (02:15→21:44)
[2017-11-02] MEDS: ACETAMINOPHEN TAB 650MG DOSE (2X325MG) PO ×2 (02:29→21:53)
[2017-11-02] MEDS: LEVOTHYROXINE 25MCG TABLET (0.025MG) PO (05:44)
[2017-11-02 07:11] LABS: BASO # 0.1 10^3/uL (0.0-0.2); BASO % 0.8 % (0.0-1.0); EOS # 0.4 10^3/uL (0.0-0.50); EOS % 7.2 % (0.0-3.0); HEMATOCRIT 33.4 % (36.0-47.0); HEMOGLOBIN 11.2 g/dl (12.0-15.5); IMMATURE GRANULOCYTE % 0.2 % (0-3.0); LYMPH # 0.6 10^3/uL (1.5-4.5); LYMPH % 10.6 % (24.0-44.0); MEAN CORPUSCULAR HEMOGLOBIN 30.3 pg (27.0-33.0); MEAN CORPUSCULAR HGB CONC 33.5 g/dl (32.0-36.5); MEAN CORPUSCULAR VOLUME 90.3 fl (80.0-96.0); MONO # 0.7 10^3/uL (0.0-0.8); MONO % 11.4 % (0.0-5.0); NEUTROPHILS # 4.2 10^3/uL (1.8-7.7); NEUTROPHILS % 69.8 % (36.0-66.0); PLATELET COUNT, AUTOMATED 217 10^3/uL (150-450); RED CELL DISTRIBUTION WIDTH 14.5 % (11.5-14.5)
[2017-11-02 07:32] LABS: ALBUMIN 2.7 GM/DL (3.2-5.2); ALBUMIN/GLOBULIN RATIO 0.73 (1.00-1.93); ALKALINE PHOSPHATASE 78 U/L (45-117); ALT/SGPT 27 U/L (12-78); ANION GAP 7 MEQ/L (8-16); AST/SGOT 19 U/L (7-37); BILIRUBIN,TOTAL 0.3 MG/DL (0.2-1.0); BLOOD UREA NITROGEN 16 MG/DL (7-18); CARBON DIOXIDE LEVEL 28 MEQ/L (21-32); CHLORIDE LEVEL 109 MEQ/L (98-107); CREATININE FOR GFR 0.72 MG/DL (0.55-1.30); GLOMERULAR FILTRATION RATE > 60.0 (>32); GLUCOSE, FASTING 87 MG/DL (70-100); MAGNESIUM LEVEL 2.3 MG/DL (1.8-2.4); POTASSIUM SERUM 3.8 MEQ/L (3.5-5.1); SODIUM LEVEL 144 MEQ/L (136-145); TOTAL PROTEIN 6.4 GM/DL (6.4-8.2)
[2017-11-02] MEDS: amLODIPine 10 MG TAB PO (08:21)
[2017-11-02] MEDS: ASPIRIN 81 MG ENTERIC TAB PO (08:21)
[2017-11-02] MEDS: ATORVASTATIN 20 MG TAB PO (08:21)
[2017-11-02] MEDS: SODIUM CHLORIDE NASAL 0.65% SPRAY BTL (OCEAN) ×3 (08:22→21:54)
[2017-11-02] MEDS: POTASSIUM CHLORIDE 10 MEQ SR TABLET PO ×2 (08:22→21:52)
[2017-11-02] MEDS: clonazePAM 0.5 MG TAB PO (21:53)
[2017-11-03] MEDS: ALBUTEROL SULFATE 2.5 MG/0.5 ML INH NEB SOLN NEB (02:05)
[2017-11-03] MEDS: LEVOTHYROXINE 25MCG TABLET (0.025MG) PO (05:14)
[2017-11-03 07:11] LABS: BASO # 0.1 10^3/uL (0.0-0.2); EOS # 0.5 10^3/uL (0.0-0.50); EOS % 7.6 % (0.0-3.0); HEMATOCRIT 34.2 % (36.0-47.0); HEMOGLOBIN 11.6 g/dl (12.0-15.5); IMMATURE GRANULOCYTE % 0.3 % (0-3.0); LYMPH # 0.6 10^3/uL (1.5-4.5); LYMPH % 9.5 % (24.0-44.0); MEAN CORPUSCULAR HEMOGLOBIN 30.4 pg (27.0-33.0); MEAN CORPUSCULAR HGB CONC 33.9 g/dl (32.0-36.5); MEAN CORPUSCULAR VOLUME 89.8 fl (80.0-96.0); MONO # 0.8 10^3/uL (0.0-0.8); MONO % 12.7 % (0.0-5.0); NEUTROPHILS # 4.1 10^3/uL (1.8-7.7); NEUTROPHILS % 68.9 % (36.0-66.0); PLATELET COUNT, AUTOMATED 232 10^3/uL (150-450); RED BLOOD COUNT 3.81 10^6/uL (4.00-5.40); RED CELL DISTRIBUTION WIDTH 14.3 % (11.5-14.5); WHITE BLOOD COUNT 5.9 10^3/uL (4.0-10.0)
[2017-11-03 07:46] LABS: ANION GAP 8 MEQ/L (8-16); BLOOD UREA NITROGEN 15 MG/DL (7-18); CARBON DIOXIDE LEVEL 28 MEQ/L (21-32); CHLORIDE LEVEL 108 MEQ/L (98-107); CREATININE FOR GFR 0.73 MG/DL (0.55-1.30); GLOMERULAR FILTRATION RATE > 60.0 (>32); GLUCOSE, FASTING 89 MG/DL (70-100); MAGNESIUM LEVEL 2.1 MG/DL (1.8-2.4); POTASSIUM SERUM 3.6 MEQ/L (3.5-5.1); SODIUM LEVEL 144 MEQ/L (136-145)
[2017-11-03] MEDS: ATORVASTATIN 20 MG TAB PO (09:58)
[2017-11-03] MEDS: POTASSIUM CHLORIDE 10 MEQ SR TABLET PO (09:58)
[2017-11-03] MEDS: amLODIPine 10 MG TAB PO (09:58)
[2017-11-03] MEDS: SODIUM CHLORIDE NASAL 0.65% SPRAY BTL (OCEAN) (09:59)
[2017-11-03] MEDS: ASPIRIN 81 MG ENTERIC TAB PO (09:59)
== END 2017-11-03 10:15 | disposition home health service (06) | DRG 164 ==
LOC: M MS4PR 10-27 09:16 → M MS5PR 10-29 16:00 → M ED 02:20 → M ED INP 06:23 → M MSPAV 15:00
PROC: 0W3Q8ZZ Control Bleeding in Respiratory Tract, Via Natural or Artificial Opening Endoscopic (ICD-10-PCS; principal; 2017-10-26)
DX: J18.9 Pneumonia, unspecified organism (principal); J44.0 Chronic obstructive pulmonary disease with (acute) lower respiratory infection; R04.2 Hemoptysis; R04.0 Epistaxis; Z79.82 Long term (current) use of aspirin; E03.9 Hypothyroidism, unspecified; E78.5 Hyperlipidemia, unspecified; K21.9 Gastro-esophageal reflux disease without esophagitis; E11.9 Type 2 diabetes mellitus without complications; Z79.899 Other long term (current) drug therapy; Z88.0 Allergy status to penicillin; Z88.8 Allergy status to other drugs, medicaments and biological substances; Z88.2 Allergy status to sulfonamides; I10 Essential (primary) hypertension; Z86.73 Personal history of transient ischemic attack (TIA), and cerebral infarction without residual deficits; R63.6 Underweight; R91.8 Other nonspecific abnormal finding of lung field

== ENCOUNTER 2017-11-03 15:44 | Observation (INO) | payer MEDICARE, OTHER ==
[2017-11-03 17:01] LABS: ANION GAP 8 MEQ/L (8-16); BLOOD UREA NITROGEN 21 MG/DL (7-18); CALCIUM LEVEL 9.2 MG/DL (8.8-10.2); CARBON DIOXIDE LEVEL 27 MEQ/L (21-32); CHLORIDE LEVEL 104 MEQ/L (98-107); CREATININE FOR GFR 0.91 MG/DL (0.55-1.30); GLOMERULAR FILTRATION RATE > 60.0 (>32); GLUCOSE, FASTING 114 MG/DL (70-100); POTASSIUM SERUM 5.1 MEQ/L (3.5-5.1); SODIUM LEVEL 139 MEQ/L (136-145)
[2017-11-03] MEDS ORDERED: LIDOCAINE 4% TOPICAL SOLN 50 ML BTL As Ordered ×2 (17:23)
[2017-11-03 17:24] LABS: BASO # 0.1 10^3/uL (0.0-0.2); BASO % 0.9 % (0.0-1.0); EOS # 0.4 10^3/uL (0.0-0.50); EOS % 4.5 % (0.0-3.0); HEMATOCRIT 39.9 % (36.0-47.0); HEMOGLOBIN 13.4 g/dl (12.0-15.5); IMMATURE GRANULOCYTE % 0.3 % (0-3.0); LYMPH # 1.3 10^3/uL (1.5-4.5); LYMPH % 12.9 % (24.0-44.0); MEAN CORPUSCULAR HGB CONC 33.6 g/dl (32.0-36.5); MEAN CORPUSCULAR VOLUME 89.3 fl (80.0-96.0); MONO # 0.9 10^3/uL (0.0-0.8); MONO % 9.2 % (0.0-5.0); NEUTROPHILS # 7.1 10^3/uL (1.8-7.7); NEUTROPHILS % 72.2 % (36.0-66.0); PLATELET COUNT, AUTOMATED 317 10^3/uL (150-450); RED BLOOD COUNT 4.47 10^6/uL (4.00-5.40); RED CELL DISTRIBUTION WIDTH 14.3 % (11.5-14.5); WHITE BLOOD COUNT 9.8 10^3/uL (4.0-10.0)
[2017-11-03] MEDS ORDERED: LIDOCAINE 2% W/EPIN INJ 20ML **PRES FREE As Ordered ×2 (17:29)
[2017-11-03] MEDS: ONDANSETRON 4MG/2ML VIAL (J2405) IV ×2 (17:30)
[2017-11-03] MEDS: LABETALOL HCL 100 MG/20 ML VIAL IV ×2 (17:30)
[2017-11-03] MEDS: LIDOCAINE 4% TOPICAL SOLN 50 ML BTL TOP ×2 (17:30)
[2017-11-03] MEDS: MORPHINE 2 MG/ML 1ML SYRINGE (J2270) IV ×2 (17:30)
[2017-11-03] MEDS: LIDOCAINE W/EPINEPHRINE 1% 20ML VIAL SC ×2 (17:30)
[2017-11-03 17:36] LABS: INR 0.91; PROTHROMBIN TIME 12.3 SECONDS (12.4-14.5)
[2017-11-03 17:37] LABS: PARTIAL THROMBOPLASTIN TIME 40.2 SECONDS (26.8-37.9)
[2017-11-03 20:00] LABS: HIV SCREEN CENTAUR EXPOSED NEGATIVE (NEGATIVE)
[2017-11-03] MEDS: amLODIPine 5 MG TAB PO ×2 (20:50)
[2017-11-04] MEDS ORDERED: clonazePAM 0.5 MG TAB PO ×2 (02:15)
[2017-11-04] MEDS ORDERED: PILL CRUSHER/CUTTER 1 EACH XX ×2 (02:30)
[2017-11-04] MEDS: NS 1,000 ML IV ×4 (04:23→14:48)
[2017-11-04] MEDS: clonazePAM 0.5 MG TAB PO ×4 (04:37→20:17)
[2017-11-04 05:46] LABS: BASO # 0.1 10^3/uL (0.0-0.2); BASO % 0.8 % (0.0-1.0); EOS # 0.2 10^3/uL (0.0-0.50); EOS % 2.2 % (0.0-3.0); HEMATOCRIT 32.9 % (36.0-47.0); IMMATURE GRANULOCYTE % 0.3 % (0-3.0); LYMPH # 0.9 10^3/uL (1.5-4.5); LYMPH % 11.7 % (24.0-44.0); MEAN CORPUSCULAR HEMOGLOBIN 30.4 pg (27.0-33.0); MEAN CORPUSCULAR HGB CONC 33.7 g/dl (32.0-36.5); MEAN CORPUSCULAR VOLUME 90.1 fl (80.0-96.0); MONO # 0.7 10^3/uL (0.0-0.8); MONO % 9.7 % (0.0-5.0); NEUTROPHILS # 5.7 10^3/uL (1.8-7.7); NEUTROPHILS % 75.3 % (36.0-66.0); PLATELET COUNT, AUTOMATED 267 10^3/uL (150-450); RED BLOOD COUNT 3.65 10^6/uL (4.00-5.40); RED CELL DISTRIBUTION WIDTH 14.1 % (11.5-14.5); WHITE BLOOD COUNT 7.6 10^3/uL (4.0-10.0)
[2017-11-04 05:52] LABS: HEMOGLOBIN 11.1 g/dl (12.0-15.5)
[2017-11-04 06:17] LABS: ALBUMIN 2.8 GM/DL (3.2-5.2); ANION GAP 8 MEQ/L (8-16); BLOOD UREA NITROGEN 19 MG/DL (7-18); CARBON DIOXIDE LEVEL 28 MEQ/L (21-32); CHLORIDE LEVEL 107 MEQ/L (98-107); CREATININE FOR GFR 0.78 MG/DL (0.55-1.30); FREE T4 1.07 NG/DL (0.76-1.46); GLOMERULAR FILTRATION RATE > 60.0 (>32); GLUCOSE, FASTING 94 MG/DL (70-100); SODIUM LEVEL 143 MEQ/L (136-145)
[2017-11-04] MEDS: LEVOTHYROXINE 25MCG TABLET (0.025MG) PO ×2 (06:36)
[2017-11-04] MEDS: amLODIPine 10 MG TAB PO ×2 (09:55)
[2017-11-04] MEDS: ATORVASTATIN 20 MG TAB PO ×2 (09:55)
[2017-11-04] MEDS: ACETAMINOPHEN TAB 650MG DOSE (2X325MG) PO ×8 (11:15→20:17)
[2017-11-04] MEDS: SODIUM CHLORIDE NASAL 0.65% SPRAY BTL (OCEAN) ×4 (15:19→20:17)
[2017-11-04 18:31] LABS: HEMATOCRIT 32.1 % (36.0-47.0); HEMOGLOBIN 10.6 g/dl (12.0-15.5)
[2017-11-04] MEDS: MORPHINE 4 MG/ML 1ML VIAL/SYRINGE (J2270) IV ×2 (19:38)
[2017-11-05 00:19] LABS: HEMATOCRIT 29.8 % (36.0-47.0); HEMOGLOBIN 9.9 g/dl (12.0-15.5)
[2017-11-05] MEDS: NS 1,000 ML IV ×2 (03:57)
[2017-11-05] MEDS: ACETAMINOPHEN TAB 650MG DOSE (2X325MG) PO ×2 (03:57)
[2017-11-05] MEDS: LEVOTHYROXINE 25MCG TABLET (0.025MG) PO ×2 (05:30)
[2017-11-05 06:40] LABS: BASO % 0.6 % (0.0-1.0); EOS # 0.3 10^3/uL (0.0-0.50); EOS % 5.2 % (0.0-3.0); HEMATOCRIT 29.1 % (36.0-47.0); HEMOGLOBIN 9.7 g/dl (12.0-15.5); IMMATURE GRANULOCYTE % 0.3 % (0-3.0); LYMPH # 0.5 10^3/uL (1.5-4.5); LYMPH % 8.6 % (24.0-44.0); MEAN CORPUSCULAR HEMOGLOBIN 30.4 pg (27.0-33.0); MEAN CORPUSCULAR HGB CONC 33.3 g/dl (32.0-36.5); MEAN CORPUSCULAR VOLUME 91.2 fl (80.0-96.0); MONO # 0.6 10^3/uL (0.0-0.8); MONO % 9.4 % (0.0-5.0); NEUTROPHILS # 4.7 10^3/uL (1.8-7.7); NEUTROPHILS % 75.9 % (36.0-66.0); PLATELET COUNT, AUTOMATED 227 10^3/uL (150-450); RED BLOOD COUNT 3.19 10^6/uL (4.00-5.40); RED CELL DISTRIBUTION WIDTH 14.1 % (11.5-14.5); WHITE BLOOD COUNT 6.2 10^3/uL (4.0-10.0)
[2017-11-05 07:03] LABS: ALBUMIN 2.4 GM/DL (3.2-5.2); ANION GAP 6 MEQ/L (8-16); BLOOD UREA NITROGEN 10 MG/DL (7-18); CALCIUM LEVEL 7.4 MG/DL (8.8-10.2); CARBON DIOXIDE LEVEL 27 MEQ/L (21-32); CHLORIDE LEVEL 111 MEQ/L (98-107); CREATININE FOR GFR 0.62 MG/DL (0.55-1.30); GLOMERULAR FILTRATION RATE > 60.0 (>32); GLUCOSE, FASTING 87 MG/DL (70-100); PHOSPHORUS LEVEL 2.3 MG/DL (2.5-4.9); POTASSIUM SERUM 3.4 MEQ/L (3.5-5.1); SODIUM LEVEL 144 MEQ/L (136-145)
[2017-11-05] MEDS: SODIUM CHLORIDE NASAL 0.65% SPRAY BTL (OCEAN) ×2 (08:52)
[2017-11-05] MEDS: amLODIPine 10 MG TAB PO ×2 (08:52)
[2017-11-05] MEDS: ATORVASTATIN 20 MG TAB PO ×2 (08:52)
[2017-11-05 10:01] LABS: HEPATITIS B SURFACE ANTIBODY NEGATIVE (POSITIVE)
[2017-11-05 10:12] LABS: HEPATITIS B SURFACE ANTIGEN NEGATIVE (NEGATIVE)
[2017-11-05 10:39] LABS: HEPATITIS C VIRUS ABY INDEX 0.1 INDEX (<0.8)
== END 2017-11-05 13:30 | disposition home health service (06) ==
LOC: M ED INP 15:45 → M PCU 11-04 03:38 → M MS5PR 11-04 14:15 → M ED 15:44
DX: R04.0 Epistaxis (principal); D62 Acute posthemorrhagic anemia; E11.9 Type 2 diabetes mellitus without complications; E03.9 Hypothyroidism, unspecified; E78.4 Other hyperlipidemia; J44.9 Chronic obstructive pulmonary disease, unspecified; Z79.82 Long term (current) use of aspirin; Z79.01 Long term (current) use of anticoagulants; I10 Essential (primary) hypertension; K21.9 Gastro-esophageal reflux disease without esophagitis
CPT/HCPCS: J2270

== ENCOUNTER 2017-11-19 08:32 | Emergency (ER) | payer MEDICARE, OTHER ==
[2017-11-19 09:14] LABS: BASO # 0.1 10^3/uL (0.0-0.2); EOS # 0.2 10^3/uL (0.0-0.50); EOS % 3.4 % (0.0-3.0); HEMATOCRIT 40.3 % (36.0-47.0); HEMOGLOBIN 13.3 g/dl (12.0-15.5); IMMATURE GRANULOCYTE % 0.2 % (0-3.0); LYMPH % 16.9 % (24.0-44.0); MEAN CORPUSCULAR HEMOGLOBIN 30.5 pg (27.0-33.0); MEAN CORPUSCULAR VOLUME 92.4 fl (80.0-96.0); MONO # 0.5 10^3/uL (0.0-0.8); MONO % 8.9 % (0.0-5.0); NEUTROPHILS # 4.3 10^3/uL (1.8-7.7); NEUTROPHILS % 69.6 % (36.0-66.0); PLATELET COUNT, AUTOMATED 305 10^3/uL (150-450); RED BLOOD COUNT 4.36 10^6/uL (4.00-5.40); RED CELL DISTRIBUTION WIDTH 14.1 % (11.5-14.5); WHITE BLOOD COUNT 6.1 10^3/uL (4.0-10.0)
[2017-11-19 09:28] LABS: PROTHROMBIN TIME 12.2 SECONDS (12.1-14.4)
[2017-11-19 09:41] LABS: ALBUMIN 3.3 GM/DL (3.2-5.2); ALBUMIN/GLOBULIN RATIO 0.83 (1.00-1.93); ALKALINE PHOSPHATASE 108 U/L (45-117); ALT/SGPT 36 U/L (12-78); ANION GAP 4 MEQ/L (8-16); AST/SGOT 30 U/L (7-37); BILIRUBIN,DIRECT < 0.1 MG/DL (0.0-0.2); BILIRUBIN,TOTAL 0.3 MG/DL (0.2-1.0); BLOOD UREA NITROGEN 18 MG/DL (7-18); C REACTIVE PROTEIN QUANTITATIV < 0.30 MG/DL (0.00-0.30); CALCIUM LEVEL 8.8 MG/DL (8.8-10.2); CARBON DIOXIDE LEVEL 30 MEQ/L (21-32); CHLORIDE LEVEL 109 MEQ/L (98-107); CPK CREATINE PHOSPHOKINASE 111 U/L (26-192); CREATININE FOR GFR 0.84 MG/DL (0.55-1.30); GLOMERULAR FILTRATION RATE > 60.0 (>32); GLUCOSE, FASTING 94 MG/DL (70-100); POTASSIUM SERUM 3.9 MEQ/L (3.5-5.1); SODIUM LEVEL 143 MEQ/L (136-145); TOTAL PROTEIN 7.3 GM/DL (6.4-8.2); TROPONIN I < 0.02 NG/ML (< 0.10)
[2017-11-19 09:47] LABS: CK-MB VALUE MASS < 1.0 NG/ML (<3.6); NT-PRO BNP 72 PG/ML (<450)
[2017-11-19] MEDS ORDERED: ISOVUE-370 76% 100ML VIAL (Q9967) As Ordered (10:00)
[2017-11-19 10:10] LABS: ERYTHROCYTE SEDIMENTATION RATE 41 mm/hr (0-30)
[2017-11-19 14:17] LABS: CK-MB VALUE MASS < 1.0 NG/ML (<3.6); CPK CREATINE PHOSPHOKINASE 95 U/L (26-192); MB/CK RELATIVE INDEX 1.05 (< OR =4); TROPONIN I < 0.02 NG/ML (< 0.10)
== END 2017-11-19 15:01 | disposition home or self-care (01) ==
LOC: M ED 08:32
DX: R07.9 Chest pain, unspecified (principal); R06.02 Shortness of breath; K21.9 Gastro-esophageal reflux disease without esophagitis; E11.9 Type 2 diabetes mellitus without complications; E78.5 Hyperlipidemia, unspecified; J45.909 Unspecified asthma, uncomplicated; J44.9 Chronic obstructive pulmonary disease, unspecified; Z99.81 Dependence on supplemental oxygen; E07.9 Disorder of thyroid, unspecified; R25.1 Tremor, unspecified; Z88.8 Allergy status to other drugs, medicaments and biological substances; Z88.1 Allergy status to other antibiotic agents; Z88.0 Allergy status to penicillin; Z88.2 Allergy status to sulfonamides; Z79.899 Other long term (current) drug therapy; Z79.02 Long term (current) use of antithrombotics/antiplatelets
CPT/HCPCS: Q9967

== ENCOUNTER → 2018-01-26 | Outpatient (CLI) | payer MEDICARE, OTHER ==
[2018-01-26 14:04] LABS: HEMATOCRIT 46.5 % (36.0-47.0); HEMOGLOBIN 14.8 g/dl (12.0-15.5); MEAN CORPUSCULAR HEMOGLOBIN 29.3 pg (27.0-33.0); MEAN CORPUSCULAR HGB CONC 31.8 g/dl (32.0-36.5); MEAN CORPUSCULAR VOLUME 92.1 fl (80.0-96.0); PLATELET COUNT, AUTOMATED 230 10^3/uL (150-450); RED BLOOD COUNT 5.05 10^6/uL (4.00-5.40); RED CELL DISTRIBUTION WIDTH 13.5 % (11.5-14.5); WHITE BLOOD COUNT 5.5 10^3/uL (4.0-10.0)
[2018-01-26 15:24] LABS: ESTIMATED AVERAGE GLUCOSE 117 MG/DL (60-110); HEMOGLOBIN A1c 5.7 %
[2018-01-26 15:49] LABS: ALBUMIN 3.7 GM/DL (3.2-5.2); ALBUMIN/GLOBULIN RATIO 1.03 (1.00-1.93); ALKALINE PHOSPHATASE 108 U/L (45-117); ALT/SGPT 32 U/L (12-78); ANION GAP 9 MEQ/L (8-16); AST/SGOT 29 U/L (7-37); BILIRUBIN,TOTAL 0.4 MG/DL (0.2-1.0); BLOOD UREA NITROGEN 25 MG/DL (7-18); CALCIUM LEVEL 9.2 MG/DL (8.8-10.2); CARBON DIOXIDE LEVEL 28 MEQ/L (21-32); CHLORIDE LEVEL 105 MEQ/L (98-107); CREATININE FOR GFR 1.04 MG/DL (0.55-1.30); GLOMERULAR FILTRATION RATE 53.9 (>32); GLUCOSE, FASTING 96 MG/DL (70-100); POTASSIUM SERUM 4.3 MEQ/L (3.5-5.1); SODIUM LEVEL 142 MEQ/L (136-145); TOTAL PROTEIN 7.3 GM/DL (6.4-8.2)
== END ==
LOC: M SMT 10:18
DX: G90.09 Other idiopathic peripheral autonomic neuropathy (principal); E11.29 Type 2 diabetes mellitus with other diabetic kidney complication
CPT/HCPCS: 80053

== ENCOUNTER → 2018-02-23 | Outpatient (CLI) | payer MEDICARE, OTHER | LOC: M RAD 14:37 | DX: J47.9 Bronchiectasis, uncomplicated (principal) | CPT/HCPCS: 71046 ==

== ENCOUNTER 2018-04-06 08:21 | Day surgery (SDC) | payer MEDICARE, OTHER ==
[2018-04-06] MEDS ORDERED: PROPOFOL 200 MG/20 ML VIAL As Ordered (08:23)
[2018-04-06] MEDS ORDERED: LIDOCAINE 2% INJ 100 MG/5 ML SDV (FOR ANES.) As Ordered (08:23)
[2018-04-06] MEDS: NS 1,000 ML IV (08:57)
== END 2018-04-06 11:08 | disposition home or self-care (01) ==
LOC: M OPP 08:21
DX: K64.0 First degree hemorrhoids (principal); K57.30 Diverticulosis of large intestine without perforation or abscess without bleeding; J45.909 Unspecified asthma, uncomplicated; J44.9 Chronic obstructive pulmonary disease, unspecified; E03.9 Hypothyroidism, unspecified; M19.90 Unspecified osteoarthritis, unspecified site; Z79.890 Hormone replacement therapy; Z79.899 Other long term (current) drug therapy; Z88.8 Allergy status to other drugs, medicaments and biological substances; Z88.1 Allergy status to other antibiotic agents; Z88.0 Allergy status to penicillin; Z88.2 Allergy status to sulfonamides; Z90.49 Acquired absence of other specified parts of digestive tract; Z98.890 Other specified postprocedural states
CPT/HCPCS: 45378

== ENCOUNTER → 2018-06-12 | Outpatient (REF) | payer MEDICARE, OTHER ==
[~2018-06-12] MED LIST changes: +ACET1TAB55; +ACET500T15 PO; -ACET50TAOT PO; +AMLO10TA5 PO; -AMLO5TAB2 PO; +AMLO5TAB6 PO; +ASPI81TA24; +AZIT-12 PO; +BOOSLIQ PO; +CEFD300CAP PO; +CELLOPD; -CLON0.5T PO; +CLON0.5T8 PO; +MILK120011 PO; -MILKSUS PO; +SALI0.652
== END ==
LOC: M SFHCPLAZ 18:39
PROVIDERS: ATTEND Dermatology
DX: D22.72 Melanocytic nevi of left lower limb, including hip (principal)
CPT/HCPCS: 11102; 88305; G0463

== ENCOUNTER → 2018-07-28 | Outpatient (CLI) | payer MEDICARE, OTHER ==
[2018-07-28 13:51] LABS: HEMATOCRIT 43.3 % (36.0-47.0); HEMOGLOBIN 14.1 g/dl (12.0-15.5); MEAN CORPUSCULAR HGB CONC 32.6 g/dl (32.0-36.5); MEAN CORPUSCULAR VOLUME 92.1 fl (80.0-96.0); PLATELET COUNT, AUTOMATED 186 10^3/uL (150-450); WHITE BLOOD COUNT 5.3 10^3/uL (4.0-10.0)
[2018-07-28 14:07] LABS: ALBUMIN 3.6 GM/DL (3.2-5.2); ALT/SGPT 50 U/L (12-78); BILIRUBIN,TOTAL 0.5 MG/DL (0.2-1.0); BLOOD UREA NITROGEN 27 MG/DL (7-18); CALCIUM LEVEL 8.7 MG/DL (8.8-10.2); CARBON DIOXIDE LEVEL 31 MEQ/L (21-32); CHLORIDE LEVEL 107 MEQ/L (98-107); CHOLESTEROL LEVEL 195 MG/DL (<200); CHOLESTEROL RISK RATIO 2.468 (<5); CREATININE FOR GFR 0.93 MG/DL (0.55-1.30); GLOMERULAR FILTRATION RATE > 60.0 (>32); GLUCOSE, FASTING 92 MG/DL (70-100); HDL CHOLESTEROL 79 MG/DL (>40); LDL CHOLESTEROL 103 MG/DL (<100); MAGNESIUM LEVEL 2.5 MG/DL (1.8-2.4); NON-HDL-C 116 MG/DL; POTASSIUM SERUM 4.9 MEQ/L (3.5-5.1); SODIUM LEVEL 141 MEQ/L (136-145); TOTAL PROTEIN 6.9 GM/DL (6.4-8.2); TRIGLYCERIDES LEVEL 66 MG/DL (<150); URIC ACID 3.3 MG/DL (2.6-6.0)
[2018-07-28 14:10] LABS: CREATININE, URINE 72.8 MG/DL; MALB URINE SIEMENS 20.4 MG/L
[2018-07-28 14:29] LABS: HEMOGLOBIN A1c 6.2 %
== END ==
LOC: M SMT 09:42
PROVIDERS: ATTEND Internal Medicine
DX: J45.40 Moderate persistent asthma, uncomplicated (principal); I11.9 Hypertensive heart disease without heart failure; E11.29 Type 2 diabetes mellitus with other diabetic kidney complication; E78.2 Mixed hyperlipidemia; E03.9 Hypothyroidism, unspecified; M10.9 Gout, unspecified

== ENCOUNTER → 2018-08-04 | Outpatient (CLI) | payer MEDICARE, OTHER ==
--- NOTE | 2018-08-04 14:50 | REP ---
At x-ray: Two views. History: Bronchiectasis. Comparison study: February 23, 2018. Findings: The lungs are rather hyperinflated consistent with COPD. There are fibrotic increased markings overlying the heart anteriorly on the lateral film consistent with right middle lobe or lingular fibrosis. This is unchanged. There is some mild linear fibrosis in the right upper lobe on the frontal view also unchanged. Pleural angles are sharp. No infiltrate is seen. There is diffuse osteopenia. Thoracic vertebral body heights are preserved. Heart is not enlarged. Impression: Hyperinflation and chronic fibrotic changes no change from February 23, 2018. Electronically Signed by Pankaj Muhammad MD 08/04/2018 02:41 P
== END ==
LOC: M SMT 10:02
PROVIDERS: ATTEND Internal Medicine Pulmonary Disease
DX: J47.9 Bronchiectasis, uncomplicated (principal)

== ENCOUNTER → 2018-08-11 | Outpatient (CLI) | payer MEDICARE, OTHER ==
[~2018-08-11] MED LIST changes: -ASPI1TAB PO; +ASPI81TA26 PO; +CALC12504 PO; -CALC500T36 PO; -ERGO500014 PO; +VITA-183 PO; -VITA1CAP2 PO; +VITA500045 PO
--- NOTE | 2018-08-11 13:53 | REPMRS ---
Patient History The patient states she had a clinical breast exam in 07/2018. Family history of breast cancer at age 50 or over in niece, breast cancer at age 50 or over in sister, unknown cancer at age 50 or over in maternal uncle, breast cancer under age 50 in niece. Benign excisional biopsy of the left breast, 2001. 3D TOMOSYNTHESIS WAS PERFORMED. Digital Woman Screen Mammo: August 11, 2018 - Exam #: [id number] Bilateral CC and MLO view(s) were taken. Technologist: Pattie Washington, Technologist Prior study comparison: August 07, 2017, digital woman screen mammo performed at [facility]. August 02, 2016, digital woman screen mammo performed at [facility]. FINDINGS: There are scattered fibroglandular densities. There has been no change in the appearance of the mammogram from the prior studies. There is a mild amount of residual fibroglandular tissue which is fairly symmetric. There is no interval development of dominant mass, architectural distortion, or clustered microcalcification suggestive of malignancy. Assessment: BI-RADS/ACR category 1 mammogram. Negative Mammogram. Recommendation Routine screening mammogram in 1 year (for women over age 40). This mammogram was interpreted with the aid of an FDA-approved computer-aided dectection system. Electronically Signed By: Blair Coker MD 08/11/18 [id number]
== END ==
LOC: M WHC 12:46
PROVIDERS: ATTEND Obstetrics & Gynecology
DX: Z12.31 Encounter for screening mammogram for malignant neoplasm of breast (principal)

== ENCOUNTER 2018-10-19 11:15 | Emergency (ER) | payer MEDICARE, OTHER ==
[~2018-10-19] VITALS: Ht 157.5 cm; Wt 40.0 kg
--- NOTE | 2018-10-19 14:28 | REP ---
Right lower extremity Duplex Doppler venous ultrasound: Real time compression and duplex Doppler interrogation of the right lower extremity deep venous system is performed. The right common femoral, superficial femoral and popliteal veins are fully compressible with transducer pressure and demonstrate normal spontaneous and phasic flow, without evidence of deep venous thrombosis. Impression: No evidence of deep venous thrombosis of the right lower extremity femoral popliteal venous system. Electronically Signed by Blair Coker MD 10/19/2018 02:19 P
[2018-10-19 14:44] LABS: BASO # 0.1 10^3/uL (0.0-0.2); BASO % 1.3 % (0.0-1.0); EOS # 0.1 10^3/uL (0.0-0.50); EOS % 1.5 % (0.0-3.0); HEMATOCRIT 45.7 % (36.0-47.0); HEMOGLOBIN 14.9 g/dl (12.0-15.5); LYMPH # 0.7 10^3/uL (1.5-4.5); LYMPH % 15.3 % (24.0-44.0); MEAN CORPUSCULAR HEMOGLOBIN 30.5 pg (27.0-33.0); MEAN CORPUSCULAR HGB CONC 32.6 g/dl (32.0-36.5); MEAN CORPUSCULAR VOLUME 93.5 fl (80.0-96.0); MONO # 0.5 10^3/uL (0.0-0.8); MONO % 10.2 % (0.0-5.0); NEUTROPHILS # 3.3 10^3/uL (1.8-7.7); NEUTROPHILS % 71.5 % (36.0-66.0); PLATELET COUNT, AUTOMATED 186 10^3/uL (150-450); RED BLOOD COUNT 4.89 10^6/uL (4.00-5.40); WHITE BLOOD COUNT 4.6 10^3/uL (4.0-10.0)
[2018-10-19 14:59] LABS: INR 0.92; PROTHROMBIN TIME 12.4 SECONDS (12.1-14.4)
[2018-10-19 15:00] LABS: PARTIAL THROMBOPLASTIN TIME 39.4 SECONDS (25.4-37.6)
[2018-10-19 15:10] LABS: ALBUMIN 3.5 GM/DL (3.2-5.2); ALT/SGPT 65 U/L (12-78); BILIRUBIN,DIRECT 0.1 MG/DL (0.0-0.2); BILIRUBIN,TOTAL 0.4 MG/DL (0.2-1.0); BLOOD UREA NITROGEN 19 MG/DL (7-18); CALCIUM LEVEL 8.2 MG/DL (8.8-10.2); CARBON DIOXIDE LEVEL 33 MEQ/L (21-32); CHLORIDE LEVEL 107 MEQ/L (98-107); CREATININE FOR GFR 0.81 MG/DL (0.55-1.30); ERYTHROCYTE SEDIMENTATION RATE 19 mm/hr (0-30); GLOMERULAR FILTRATION RATE > 60.0 (>32); GLUCOSE, FASTING 93 MG/DL (70-100); SODIUM LEVEL 143 MEQ/L (136-145)
[2018-10-19 15:58] VITALS: BP 131/64
== END 2018-10-19 16:24 | disposition home or self-care (01) ==
LOC: M ED 11:15
DX: R22.43 Localized swelling, mass and lump, lower limb, bilateral (principal); I10 Essential (primary) hypertension; J45.909 Unspecified asthma, uncomplicated; E78.5 Hyperlipidemia, unspecified; E03.9 Hypothyroidism, unspecified; R25.1 Tremor, unspecified; G43.909 Migraine, unspecified, not intractable, without status migrainosus; G62.9 Polyneuropathy, unspecified; F33.9 Major depressive disorder, recurrent, unspecified; F41.9 Anxiety disorder, unspecified; K21.9 Gastro-esophageal reflux disease without esophagitis; Z86.73 Personal history of transient ischemic attack (TIA), and cerebral infarction without residual deficits; Z88.0 Allergy status to penicillin; Z88.1 Allergy status to other antibiotic agents; Z88.8 Allergy status to other drugs, medicaments and biological substances; Z79.82 Long term (current) use of aspirin

== ENCOUNTER → 2019-01-29 | Outpatient (REF) | payer MEDICARE, OTHER ==
[~2019-01-29] MED LIST changes: -CALC12504 PO; +CALC500T61 PO; +ZETI10TA16 PO; -ZETI10TA30 PO
[2019-01-29 12:32] LABS: HEMATOCRIT 45.2 % (36.0-47.0); HEMOGLOBIN 14.7 g/dl (12.0-15.5); MEAN CORPUSCULAR HEMOGLOBIN 30.6 pg (27.0-33.0); MEAN CORPUSCULAR HGB CONC 32.5 g/dl (32.0-36.5); MEAN CORPUSCULAR VOLUME 94.2 fl (80.0-96.0); PLATELET COUNT, AUTOMATED 215 10^3/uL (150-450); WHITE BLOOD COUNT 3.9 10^3/uL (4.0-10.0)
[2019-01-29 12:43] LABS: ALBUMIN 3.6 GM/DL (3.2-5.2); BILIRUBIN,TOTAL 0.4 MG/DL (0.2-1.0); CHOLESTEROL RISK RATIO 2.337 (<5); CREATININE FOR GFR 1.1 MG/DL (0.55-1.30); GLOMERULAR FILTRATION RATE 50.4 (>32); MAGNESIUM LEVEL 2.5 MG/DL (1.8-2.4); POTASSIUM SERUM 4.2 MEQ/L (3.5-5.1); THYROID STIMULATING HORMONE 3.63 uIU/ML (0.358-3.740); TOTAL PROTEIN 6.7 GM/DL (6.4-8.2); URIC ACID 3.5 MG/DL (2.6-6.0)
[2019-01-29 13:00] LABS: HEMOGLOBIN A1c 6.1 %
[2019-01-29 13:04] LABS: MALB URINE SIEMENS 15.6 MG/L; MAU/CREAT RATIO 14.5 MCG/MG (0.0-30.0)
== END ==
LOC: M SFHCPLAZ 08:50
PROVIDERS: ATTEND Dermatology
DX: J45.40 Moderate persistent asthma, uncomplicated (principal); I11.9 Hypertensive heart disease without heart failure; E11.29 Type 2 diabetes mellitus with other diabetic kidney complication; E78.2 Mixed hyperlipidemia; E03.9 Hypothyroidism, unspecified; M10.9 Gout, unspecified

== ENCOUNTER 2019-03-03 09:53 | Emergency (ER) | payer MEDICARE, OTHER ==
[~2019-03-03] VITALS: Ht 157.5 cm; Wt 39.7 kg
[2019-03-03] MEDS ORDERED: MAGN1CAP PO (10:00)
[2019-03-03] MEDS ORDERED: PROAAER10 INH (10:15)
[2019-03-03 11:00] LABS: BASO # 0.1 10^3/uL (0.0-0.2); BASO % 1.5 % (0.0-1.0); EOS # 0.1 10^3/uL (0.0-0.5); HEMATOCRIT 46.5 % (36.0-47.0); HEMOGLOBIN 15.1 g/dl (12.0-15.5); LYMPH # 0.8 10^3/uL (1.5-5.0); LYMPH % 19.2 % (24.0-44.0); MEAN CORPUSCULAR HEMOGLOBIN 30.6 pg (27.0-33.0); MEAN CORPUSCULAR HGB CONC 32.5 g/dl (32.0-36.5); MEAN CORPUSCULAR VOLUME 94.3 fl (80.0-96.0); MONO # 0.5 10^3/uL (0.0-0.8); MONO % 12.5 % (0.0-5.0); NEUTROPHILS # 2.6 10^3/uL (1.5-8.5); NEUTROPHILS % 63.6 % (36.0-66.0); PLATELET COUNT, AUTOMATED 200 10^3/uL (150-450); RED BLOOD COUNT 4.93 10^6/uL (4.00-5.40)
[2019-03-03 11:31] LABS: ERYTHROCYTE SEDIMENTATION RATE 17 mm/hr (0-30)
--- NOTE | 2019-03-03 12:01 | REP ---
Bilateral lower extremity Duplex Doppler venous ultrasound: Real time compression and duplex Doppler interrogation of the bilateral lower extremity deep venous system is performed. Bilaterally, the common femoral, superficial femoral and popliteal veins are fully compressible with transducer pressure and demonstrate normal spontaneous and phasic flow, without evidence of deep venous thrombosis. Impression: No evidence of deep venous thrombosis of the bilateral lower extremity femoral popliteal venous system. Electronically Signed by Blair Coker MD 03/03/2019 11:52 A
[2019-03-03 12:32] VITALS: BP 145/67
[2019-03-03] MEDS ORDERED: ACETAMINOPHEN TAB 650MG DOSE (2X325MG) PO ONE (13:30)
--- NOTE | 2019-03-03 14:24 | REP ---
REASON: Pain. COMPARISON: Right hip of 02/06/2015 and AP pelvis of 02/05/2015. Fixation screws are again seen in the right femur, unchanged from the latest prior. There is asymmetric bilateral hip joint space narrowing, left greater than right. There is no evidence of an acute fracture. The bones appear somewhat demineralized. IMPRESSION: Chronic bilateral hip changes, as described above, increased slightly compared to the prior AP pelvis exam, 02/05/2015, with no significant change in appearance of the right hip when compared to 02/06/2015. Electronically Signed by Kadeem Sheehan DO 03/03/2019 04:30 P
== END 2019-03-03 14:08 | disposition home or self-care (01) ==
LOC: M ED 09:53
DX: M16.11 Unilateral primary osteoarthritis, right hip (principal); M16.12 Unilateral primary osteoarthritis, left hip; I10 Essential (primary) hypertension; Z79.82 Long term (current) use of aspirin; Z79.899 Other long term (current) drug therapy; Z88.0 Allergy status to penicillin; Z88.2 Allergy status to sulfonamides; Z88.8 Allergy status to other drugs, medicaments and biological substances

== ENCOUNTER → 2019-03-24 | Outpatient (CLI) | payer MEDICARE, OTHER ==
[~2019-03-24] MED LIST changes: +MAGN1CAP PO
[2019-03-24 14:14] LABS: BASO # 0.1 10^3/uL (0.0-0.2); BASO % 1.4 % (0.0-1.0); EOS # 0.1 10^3/uL (0.0-0.5); EOS % 2.6 % (0.0-3.0); HEMATOCRIT 46.2 % (36.0-47.0); HEMOGLOBIN 14.8 g/dl (12.0-15.5); LYMPH # 0.9 10^3/uL (1.5-5.0); LYMPH % 17.9 % (24.0-44.0); MEAN CORPUSCULAR HEMOGLOBIN 30.1 pg (27.0-33.0); MEAN CORPUSCULAR VOLUME 93.9 fl (80.0-96.0); MONO # 0.7 10^3/uL (0.0-0.8); MONO % 13.3 % (0.0-5.0); NEUTROPHILS # 3.2 10^3/uL (1.5-8.5); NEUTROPHILS % 64.6 % (36.0-66.0); PLATELET COUNT, AUTOMATED 212 10^3/uL (150-450); RED BLOOD COUNT 4.92 10^6/uL (4.00-5.40)
[2019-03-24 14:34] LABS: ERYTHROCYTE SEDIMENTATION RATE 11 mm/hr (0-30)
== END ==
LOC: M SMT 10:42
PROVIDERS: ATTEND Physician Assistant
DX: M47.26 Other spondylosis with radiculopathy, lumbar region (principal)

== ENCOUNTER 2019-06-01 16:20 | Observation (INO) | payer MEDICARE, OTHER ==
[~2019-06-01] VITALS: Ht 157.5 cm; Wt 37.3 kg
[~2019-06-01 16:20] MED LIST changes: -ASPI81TA24; +ASPI81TA24 PO; -CELLOPD; +CELLOPD OU; +CLON0.5T2 PO; -CLON0.5T8 PO
[2019-06-01] MEDS ORDERED: TRIH2TAB3 PO (17:12)
[2019-06-01] MEDS ORDERED: BUSP10TA PO (17:12)
[2019-06-01 17:19] LABS: BASO # 0.1 10^3/uL (0.0-0.2); BASO % 0.9 % (0.0-1.0); EOS # 0.1 10^3/uL (0.0-0.5); HEMOGLOBIN 14.5 g/dl (12.0-15.5); LYMPH # 0.5 10^3/uL (1.5-5.0); MEAN CORPUSCULAR HEMOGLOBIN 30.4 pg (27.0-33.0); MEAN CORPUSCULAR VOLUME 92.2 fl (80.0-96.0); MONO # 0.5 10^3/uL (0.0-0.8); MONO % 6.3 % (0.0-5.0); NEUTROPHILS # 6.8 10^3/uL (1.5-8.5); NEUTROPHILS % 85.4 % (36.0-66.0); PLATELET COUNT, AUTOMATED 189 10^3/uL (150-450); RED BLOOD COUNT 4.77 10^6/uL (4.00-5.40)
[2019-06-01 17:30] LABS: ALBUMIN 3.6 GM/DL (3.2-5.2); ALT/SGPT 35 U/L (12-78); BILIRUBIN,TOTAL 0.6 MG/DL (0.2-1.0); BLOOD UREA NITROGEN 27 MG/DL (7-18); CALCIUM LEVEL 9.2 MG/DL (8.8-10.2); CARBON DIOXIDE LEVEL 30 MEQ/L (21-32); CHLORIDE LEVEL 104 MEQ/L (98-107); CREATININE FOR GFR 0.86 MG/DL (0.55-1.30); GLOMERULAR FILTRATION RATE > 60.0 (>32); GLUCOSE, FASTING 116 MG/DL (70-100); POTASSIUM SERUM 3.7 MEQ/L (3.5-5.1); SODIUM LEVEL 140 MEQ/L (136-145); TOTAL PROTEIN 6.9 GM/DL (6.4-8.2)
[2019-06-01] MEDS ORDERED: MECLIZINE 25 MG TABLET PO ONE (17:45)
[2019-06-01 17:53] LABS: INR 0.99; PROTHROMBIN TIME 12.8 SECONDS (11.8-14.0)
[2019-06-01 17:54] LABS: PARTIAL THROMBOPLASTIN TIME 36.2 SECONDS (25.0-38.4)
[2019-06-01 18:06] LABS: CK-MB VALUE MASS < 1.0 NG/ML (<3.6); CPK CREATINE PHOSPHOKINASE 108 U/L (26-192); FREE T4 1.26 NG/DL (0.76-1.46); MB/CK RELATIVE INDEX 0.93 (< OR =4); TROPONIN I < 0.02 NG/ML (< 0.10)
--- NOTE | 2019-06-01 18:13 | REPVR ---
PROCEDURE INFORMATION: Exam: CT Head Without Contrast Exam date and time: 06/01/2019 5:39 PM Age: 83 years old Clinical indication: Dizziness and numbness / parasthesia; Right; Additional info: Dizzy, right leg numb TECHNIQUE: Imaging protocol: Computed tomography of the head without contrast. Radiation optimization: All CT scans at this facility use at least one of these dose optimization techniques: automated exposure control; mA and/or kV adjustment per patient size (includes targeted exams where dose is matched to clinical indication); or iterative reconstruction. COMPARISON: CT Head without contrast 01/26/2016 10:15 PM FINDINGS: Brain: There is parenchymal volume loss. White matter changes are demonstrated in the subcortical, centrum semiovale and periventricular white matter consistent with age related small vessel white matter angiopathic gliosis. Ventricles: The degree of ventricular dilatation is normal for age and/or degree of atrophy present. Bones/joints: Unremarkable. No acute fracture. Sinuses: Visualized sinuses are unremarkable. No fluid levels. Mastoid air cells: Visualized mastoid air cells are well aerated. Soft tissues: Unremarkable. IMPRESSION: 1. There is parenchymal volume loss. White matter changes are demonstrated in the subcortical, centrum semiovale and periventricular white matter consistent with age related small vessel white matter angiopathic gliosis. 2. The degree of ventricular dilatation is normal for age and/or degree of atrophy present. Electronically signed by: Ethan Fontana On 06/01/2019 18:12:59 PM
--- NOTE | 2019-06-01 19:00 | REP ---
AP PORTABLE CHEST: 06/01/2019. Comparison: 08/04/2018, CTA 11/19/2017. Clinical history: Dizziness. Technologist notes indicate somewhat limited exam as the patient was shaking throughout. Findings: Skin folds project over the left mid and upper chest peripherally. Hyperinflation with COPD and emphysematous changes are again seen. Some minor basilar fibrotic changes. There is peribronchial thickening bilaterally representing some bronchitis or bronchiectasis or both. I do not see dense consolidation, pleural effusion or parenchymal mass. Heart is not enlarged. The aorta is mildly tortuous intact. Airway is without stenosis. Bones demineralized. There is some degenerative changes of the AC joint, right greater than left, less at the glenohumeral joints. Some changes in the spine as well. Impression: 1. COPD with bullous emphysematous changes, some basilar fibrosis and bronchitis, bronchiectasis or both. No effusion or dense consolidation. No parenchymal mass. 2. Skin folds project over the periphery of the right mid and upper chest. No pneumothorax. No acute finding. Electronically Signed by Julius Vines MD 06/01/2019 07:27 P
--- NOTE | 2019-06-01 20:04 | REPVR ---
PROCEDURE INFORMATION: Exam: MR Head Without Contrast Exam date and time: 06/01/2019 7:47 PM Age: 83 years old Clinical indication: Other: Vertigo; Additional info: CVA TECHNIQUE: Imaging protocol: MR of the head without contrast. COMPARISON: MRI-Brain without Contrast 12/02/2014 6:16 PM FINDINGS: Brain: Multiple foci of T2 lengthening are demonstrated in the subcortical, periventricular and centrum semiovale white matter consistent with age-related small vessel gliosis. Moderate age related parenchymal atrophy. Ventricles: The degree of ventricular dilatation is normal for age and/or degree of atrophy present. Bones/joints: Unremarkable. Soft tissues: Unremarkable. Sinuses: Retention cyst right maxillary sinus. Mastoid air cells: Normal as visualized. No mastoid effusion. Orbits: Unremarkable. IMPRESSION: 1. Multiple foci of T2 lengthening are demonstrated in the subcortical, periventricular and centrum semiovale white matter consistent with age-related small vessel gliosis. 2. The degree of ventricular dilatation is normal for age and/or degree of atrophy present. Electronically signed by: Ethan Fontana On 06/01/2019 20:04:24 PM
--- NOTE | 2019-06-01 20:06 | REPVR ---
PROCEDURE INFORMATION: Exam: MR Angiogram Head Without Contrast, Arteries Exam date and time: 06/01/2019 7:47 PM Age: 83 years old Clinical indication: Other: Vertigo; Additional info: CVA TECHNIQUE: Imaging protocol: MR angiogram head without contrast. Exam focused on the arteries. 3D rendering: MIP and/or 3D reconstructed images were created by the technologist. COMPARISON: MRA BRAIN W/O CONTRAST 12/02/2014 6:05 PM FINDINGS: Right internal carotid artery: Unremarkable. Intracranial segment is patent with no significant stenosis. No aneurysm. Right anterior cerebral artery: Unremarkable. No occlusion or significant stenosis. No aneurysm. Right middle cerebral artery: Unremarkable. No occlusion or significant stenosis. No aneurysm. Right posterior cerebral artery: Persistent origin of the right posterior cerebral artery. Right vertebral artery: Unremarkable. No occlusion or significant stenosis. No aneurysm. Left internal carotid artery: Unremarkable. Intracranial segment is patent with no significant stenosis. No aneurysm. Left anterior cerebral artery: Unremarkable. No occlusion or significant stenosis. No aneurysm. Left middle cerebral artery: Unremarkable. No occlusion or significant stenosis. No aneurysm. Left posterior cerebral artery: Persistent origin of the left posterior cerebral artery. Left vertebral artery: Unremarkable. No occlusion or significant stenosis. No aneurysm. Basilar artery: Unremarkable. No occlusion or significant stenosis. No aneurysm. IMPRESSION: No acute findings. Electronically signed by: Ethan Fontana On 06/01/2019 20:06:30 PM
[2019-06-01] MEDS ORDERED: ACETAMINOPHEN TAB 650MG DOSE (2X325MG) PO PRN (20:30)
[2019-06-01] MEDS ORDERED: POTA1TAB14 PO (20:32)
[2019-06-01] MEDS ORDERED: MUCI600T31 PO (20:32)
[2019-06-01] MEDS ORDERED: LACT237L7 PO (20:32)
[2019-06-01] MEDS ORDERED: VASEGEL6 NARES (20:32)
[2019-06-01] MEDS ORDERED: BENGGEL2 TOP (20:32)
[2019-06-01] MEDS ORDERED: ACET-907 PO (20:32)
[2019-06-01] MEDS ORDERED: EQL0.65S (20:32)
[2019-06-01] MEDS ORDERED: VITA50005 PO (20:32)
[2019-06-01] MEDS ORDERED: clonazePAM 0.5 MG TAB PO PRN (20:45)
[2019-06-01] MEDS ORDERED: ALBUTEROL 90 MCG/ACT 8GM HFA INHALER INH PRN (20:45)
[2019-06-01] MEDS ORDERED: ANALGESIC BALM CRM 120 GM TOP PRN (20:45)
[2019-06-01] MEDS ORDERED: ATORVASTATIN 20 MG TAB PO SCH (21:00)
[2019-06-01] MEDS: SODIUM CHLORIDE NASAL 0.65% SPRAY BTL (OCEAN) SCH (21:00)
[2019-06-01] MEDS ORDERED: clonazePAM 0.5 MG TAB PO SCH (21:00)
--- NOTE | 2019-06-01 21:08 | ECGEPIP ---
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
[2019-06-01 21:10] VITALS: BP 145/68
[2019-06-01] MEDS ORDERED: PILL CUTTER 1 EACH XX PRN (22:15)
[2019-06-01] MEDS: POTASSIUM CHLORIDE 10 MEQ SR TABLET PO SCH (22:40)
[2019-06-01] MEDS: guaiFENesin ER 600 MG TAB PO SCH (22:40)
[2019-06-01] MEDS: POLYVINYL ALCOHOL OPHTH SOLN 15 ML(LIQUITEARS) OD SCH (23:21)
--- NOTE | 2019-06-02 05:09 | HPEPDOC ---
General Date of Admission 06/01/2019 Date of Service: Jun 01, 2019 Primary Care Physician: Phillip Hess Attending Physician: FLORA HESTER MD Chief Complaint The patient is a 83-year-old female admitted with a reason for visit of Dizziness. Source: Patient Exam Limitations: No limitations Timing/Duration: 24 hours Severity: Moderate Associated Symptoms: Dizziness (Like the room is spinning, and has had to hold on to thinks to be secure while ambulating) History of Present Illness 83 yo woman with a history of Meniere's disease, COPD, hypothyroidism, hyperlipidemia, GERD and benign essential tremor who presented from home repo rting a 24 hour history of dizziness and R lower leg numbness that she notes has had before with a history or neuropathy. At baseline she walks unassisted with no assistive devices with a cane when she goes to yazidi, lives at an apartment in an elevator accessible building, is independent with ALDs with HCP daughter who lives a few miles away from her. She reports a 1 day history of dizziness with a spinning sensation that was making her gait unsteady and precipitated her ED presentation. She reported having had a prior episode of dizziness remotely and has not had problems for a long time. She otherwise denied having fallen recently, asymmetrical weakness, ringing in her ears, a recent cold, congestion, rhinorrhea, nausea, vomiting, fever, chills, diarrhea or poor PO. On further questioning, she has some mild ringing in her left ear and fills like it is full. In the ED, initial vitals were BP 174/72, HR 87, RR 18, was afebrile and breathing comfortably on room air while saturating 96% on room air, and orthostatic vitals were negative. Initial work up was notable for CT head that s howed no acute intracranial abnormalities, MR brain without acute pathology and age related volume loss, WBC 8, Hgb 14.5, Hct 44, platelets 189, na 140, K 3.7, Cr 0.86, bland UA, TSH and free T4 within normal limits and CXR with no acute pathology. She was given 50mg of meclizine with improvement in her symptoms and is now being admitted for observation for likely vertigo 2/2 to her Mnire's disease. Home Medications Scheduled Alendronate Sodium (Fosamax) 70 Mg Tab, 70 MG PO 1XWK, (Reported) TAKES ON FRIDAYS, TAKES WITH APPLESAUCE Amlodipine Besylate (Amlodipine Besylate) 10 Mg Tab, 10 MG PO DAILY, (Reported) TAKES WITH APPLESAUCE Aspirin (Aspirin EC) 81 Mg Tab, 81 MG PO 3XW, (Reported) MON, WED, FRI, TAKES WITH APPLESAUCE Atorvastatin Calcium (Atorvastatin Calcium) 40 Mg Tab, 40 MG PO QHS, (Reported) TAKES WITH APPLESAUCE Carboxymethylcellulose Sod (Refresh Celluvisc) 0.4 Ml Soln, 1 DROP OU QID, (Reported) Clonazepam (Clonazepam) 0.5 Mg Tab, 0.25 MG PO QHS, (Reported) Ergocalciferol (Vitamin D2) (Vitamin D2) 50,000 Units Cap, 50,000 UNITS PO QWEEK, (Reported) SATURDAYS, TAKES WITH APPLESAUCE Guaifenesin (Mucinex) 600 Mg Tab.er.12h, 600 MG PO BID, (Reported) TAKES WITH APPLESAUCE Lactose-Reduced Food (Boost) 237 Ml Liquid, 237 ML PO BID, (Reported) Levothyroxine Sodium (Levothyroxine Sodium) 25 Mcg Tab, 25 MCG PO QHS, (Reported) TAKES IN THE MIDDLE OF THE NIGHT Petrolatum,White (Vaseline) 18 Ml Jelly.ml., 1 DOSE NARES QHS, (Reported) APPLY TO BOTH NARES Potassium Chloride (Potassium Chloride) 20 Meq Tablet.er, 20 MEQ PO BID, (Reported) CRUSH AND PUT IN APPLESAUCE Sodium Chloride (Saline Nasal Godwin) 88 Ml Godwin, 2 SPRAY NA QID, (Reported) Scheduled PRN Acetaminophen (Tylenol) 325 Mg Tablet, 650 MG PO QID PRN for PAIN / FEVER, (Reported) Albuterol Sulfate (Proair Hfa) 8.5 Gm Hfa.aer.ad, 2 PUFFS INH QID PRN for SHORTNESS OF BREATH, (Reported) Clonazepam (Clonazepam) 0.5 Mg Tab, 0.125 MG PO QHS PRN for ANXIETY, (Reported) PATIENT TAKES ANOTHER 1/4 TAB IF WAKES IN THE NIGHT Menthol (Bengay) 5% Gel..gram., 1 DOSE TOP QID PRN for PAIN, (Reported) APPLY TO ANY AREAS OF PAIN Allergies Coded Allergies: Penicillins (Verified Allergy, Intermediate, Swelling, 6/10/19) levofloxacin (Verified Allergy, Mild, RASH WITH IV INFUSION, 06/01/19) propylthiouracil (Verified Allergy, Unknown, 10/19/18) bisoprolol (Verified Adverse Reaction, Intermediate, Dizziness, 10/19/18) propranolol (Verified Adverse Reaction, Intermediate, Wheezy, 06/01/19) Sulfa (Sulfonamide Antibiotics) (Verified Adverse Reaction, Mild, Nausea and Vomiting, 06/01/19) diazepam (Unverified Adverse Reaction, Mild, FISHING ROD MARKER, 10/19/18) Past Medical History Medical History Meniere's disease, COPD, hypothyroidism, hyperlipidemia, GERD and benign essential tremor, history of significant nose bleed Surgical History R hip surgery Appendectomy Hysterectomy Epiglottis and vaginal cyst removal breast biopsy, negative for malignancy colonoscopy Family History Significant Family History: No pertinent family hx Social History * Smoker: Denies Alcohol: Denies Drugs: denies Recent Travel/Sick Contacts: Denies: Recent travel, Recent sick contacts Psychosocial History: No pertinent psych hx Lives in a apartment of 26 years. Has elevator access. Is . Independent with all ADLs and IADLs. Drives, walks with a cane when she goes to yazidi but otherwise no assistive devices most of the time. No alcohol, smoking or illicit drug use A-FIB/CHADSVASC A-FIB History Current/History of A-Fib/PAF?: No Current PO Anticoag Therapy: No Age/Risk Factor Scoring CHADSVASC: CHADSVASC Response (Comments) Value Age Risk Factor Age >/= 75 years old 2 Gender Risk Factor Female 1 Hx of CHF No 0 Hx of HTN Yes 1 Hx of Stroke/TIA/or VTE No 0 Hx of Diabetes No 0 Hx of Vascular Disease Yes 1 Total 5 Treatment Treatment ordered: NONE Reason Anticoagulant not given: Not indicated/Hyelm0xtle Review of Systems Constitutional: Denies: Chills, Fever, Night Sweats Eyes: Denies: Pain, Vision change ENT: Denies: Head Aches, Ear Pain, Dysphagia, Sinus Congestion, Post Nasal Drip, Sore Throat, Epistaxis Skin: Denies: Rash, Lesions, Breakdown Pulmonary: Denies: Dyspnea, Cough Cardiovascular: Denies: Chest Pain, Palpitations, Orthopnea, Paroxysmal Noc. Dyspnea, Lt Headedness Gastrointestinal: Denies: Nausea, Vomiting, Abdominal Pain, Diarrhea Genitourinary: Denies: Dysuria, Frequency, Incontinence, Retention Hematologic: Denies: Bruising, Bleeding Excessively Endocrine: Denies: Polydipsia, Polyphagia, Polyuria, Heat Intolerance, Cold Intolerance, Other Endocrine Sx Musculoskeletal: Denies: Neck Pain, Back Pain, Joint Pain, Muscle Pain, Spasms Neurological: Reports: Numbness (R lower leg numbness, with normal motor function); Denies: Weakness, Incoordination (feels dizzy with vertigo), Change in speech, Confusion, Seizures Psych: Reports: Mood Normal; Denies: Depression, Memory Issues Physical Examination General Exam: Positive: Alert, No Acute Distress Eye Exam: Positive: PERRLA, Conjunctiva & lids normal, EOMI; Negative: Sclera icteric ENT Exam: Positive: Atraumatic, Mucous membr. moist/pink, Pharynx Normal Neck Exam: Positive: Supple; Negative: JVD, thyromegaly Chest Exam: Positive: Clear to auscultation, Normal air movement Heart Exam: Positive: Rate Normal, Regular Rhythm, Normal S1, Normal S2; Negative: Murmurs, Rubs Telemetry: Positive: No significant arrhythmia Abdomen Exam: Positive: Normal bowel sounds, Soft; Negative: Tenderness, Hepatospenomegaly Extremity Exam: Positive: Normal pulses; Negative: Clubbing, Cyanosis, Edema Skin Exam: Positive: Nl turgor and temperature; Negative: Breakdown, Lesion Neuro Exam: Positive: Normal Speech, Strength at 5/5 X4 ext, Normal Tone, Sensation Intact, Cranial Nerves 3-12 NL, Reflexes 2+ Psych Exam: Positive: Mental status NL, Mood NL, Oriented x 3 Vital Signs Vital Signs Date Time Temp Pulse Resp B/P (MAP) Pulse Ox O2 Delivery O2 Flow Rate FiO2 06/01/19 18:05 89 97 06/01/19 18:00 143/70 (94) 06/01/19 16:36 Room Air 06/01/19 16:29 97.1 18 Laboratory Data Labs 24H Laboratory Tests 2 06/01/19 16:42: Immature Granulocyte % (Auto) 0.4, Neutrophils (%) (Auto) 85.4H, Lymphocytes (%) (Auto) 6.0L, Monocytes (%) (Auto) 6.3H, Eosinophils (%) (Auto) 1.0, Basophils (%) (Auto) 0.9, Neutrophils # (Auto) 6.8, Lymphocytes # (Auto) 0.5L, Monocytes # (Auto) 0.5, Eosinophils # (Auto) 0.1, Basophils # (Auto) 0.1, Nucleated Red Blood Cells % (auto) 0.0, Prothrombin Time 12.8, Prothromb Time International Ratio 0.99, Activated Partial Thromboplast Time 36.2, Anion Gap 6L, Glomerular Filtration Rate > 60.0, Calcium Level 9.2, Total Bilirubin 0.6, Aspartate Amino Transf (AST/SGOT) 29, Alanine Aminotransferase (ALT/SGPT) 35, Alkaline Phosphatase 97, Total Creatine Kinase 108, Creatine Kinase MB < 1.0, Creatine Kinase MB Relative Index 0.93, Troponin I < 0.02, Total Protein 6.9, Albumin 3.6, Albumin/Globulin Ratio 1.09, Thyroid Stimulating Hormone (TSH) 1.530, Free Thyroxine 1.26 06/01/19 17:13: Urine Color YELLOW, Urine Appearance TURBIDH, Urine pH 8.0, Urine Specific [place] 1.014, Urine Protein NEGATIVE, Urine Glucose (UA) NEGATIVE, Urine Ketones NEGATIVE, Urine Blood NEGATIVE, Urine Nitrite NEGATIVE, Urine Bilirubin NEGATIVE, Urine Urobilinogen 0.2, Urine Leukocyte Esterase NEGATIVE, Urine WBC (Auto) 0, Urine RBC (Auto) 2, Urine Hyaline Casts (Auto) 0, Urine Bacteria (Auto) NEGATIVE, Urine Squamous Epithelial Cells 0, Urine Amorphous Sediment SMALLH, Urine Sperm (Auto) CBC/BMP Laboratory Tests 06/01/19 16:42 Assessment/Plan 83 yo woman with a history of Meniere's disease, COPD, hypothyroidism, hyperlipidemia, GERD and benign essential tremor who presented from home reporting a 24 hour history of dizziness and vertigo and and lateral R lower leg numbness that she notes has had before with a history of neuropathy with vertigo having improved after meclizine with a CT head that showed no acute intracranial abnormalities and MR brain without acute pathology and age related volume loss being admitted for observation for likely vertigo 2/2 to her Mnire's disease. Plan: Dizziness with vertigo: Likely 2/2 Meniere's, but also possibly BPPV or vestibular neuritis in the setting of a recent cold though patient denies recent illness. -continue daily meclizine for now -CT and MRI brain without acute pathology, with intact rest of neurological exam at this time. Will need a Dixhall-Henderson exam in the morning, I examined her when she was already sleeping in bed late at night. -PT/OT eval -Will likely discharge home on meclizine with PCP follow up COPD: No evidence of exacerbation at this time -continue home meds Hypertension: -continue home amlodipine 10 QD Hyperlipidemia: -continue home lipitor 40 -on ASA 81 Vit D deficiency with history of osteoporosis: -continue weekly Vit D2 -has not taken her fosamax since 05/14 even though its prescribed for weekly? Will need to follow up with PCP Chronic hypokalemia: continue home 20meq K BID GERD: currently not on meds and no suggestive complaints. Anxiety: continue home klonopin DVT ppx: SCDs Diet: regular Dispo: Obs in med/surg, likely early home discharge on meclizine with PCP follow up after PT clearance Plan / VTE VTE Prophylaxis Ordered?: Yes FLORA HESTER MD Jun 01, 2019 20:58
[2019-06-02 06:00] VITALS: BP 130/63
[2019-06-02] MEDS ORDERED: LEVOTHYROXINE 25MCG TABLET (0.025MG) PO SCH (06:00)
[2019-06-02] MEDS ORDERED: ASPIRIN 81 MG ENTERIC TAB PO SCH (09:00)
[2019-06-02] MEDS ORDERED: amLODIPine 10 MG TAB PO SCH (09:00)
[2019-06-02] MEDS ORDERED: MECLIZINE 25 MG TABLET PO SCH (09:00)
[2019-06-02 09:03] VITALS: BP 130/63
[2019-06-02] MEDS: guaiFENesin ER 600 MG TAB PO SCH (09:03)
[2019-06-02] MEDS: POTASSIUM CHLORIDE 10 MEQ SR TABLET PO SCH (09:04)
[2019-06-02] MEDS: SODIUM CHLORIDE NASAL 0.65% SPRAY BTL (OCEAN) SCH ×2 (09:04→12:25)
[2019-06-02] MEDS: POLYVINYL ALCOHOL OPHTH SOLN 15 ML(LIQUITEARS) OD SCH ×2 (09:04→12:25)
[2019-06-02 09:23] LABS: BASO # 0.1 10^3/uL (0.0-0.2); BASO % 1.4 % (0.0-1.0); EOS # 0.2 10^3/uL (0.0-0.5); EOS % 4.1 % (0.0-3.0); HEMOGLOBIN 14.3 g/dl (12.0-15.5); LYMPH # 0.7 10^3/uL (1.5-5.0); LYMPH % 18.6 % (24.0-44.0); MEAN CORPUSCULAR HGB CONC 33.3 g/dl (32.0-36.5); MEAN CORPUSCULAR VOLUME 93.1 fl (80.0-96.0); MONO # 0.5 10^3/uL (0.0-0.8); MONO % 12.6 % (0.0-5.0); NEUTROPHILS # 2.3 10^3/uL (1.5-8.5); PLATELET COUNT, AUTOMATED 179 10^3/uL (150-450); RED BLOOD COUNT 4.62 10^6/uL (4.00-5.40); WHITE BLOOD COUNT 3.7 10^3/uL (4.0-10.0)
[2019-06-02 09:45] LABS: BLOOD UREA NITROGEN 19 MG/DL (7-18); CALCIUM LEVEL 8.8 MG/DL (8.8-10.2); CARBON DIOXIDE LEVEL 34 MEQ/L (21-32); CHLORIDE LEVEL 108 MEQ/L (98-107); GLOMERULAR FILTRATION RATE > 60.0 (>32); GLUCOSE, FASTING 114 MG/DL (70-100); MAGNESIUM LEVEL 2.3 MG/DL (1.8-2.4); POTASSIUM SERUM 3.9 MEQ/L (3.5-5.1); SODIUM LEVEL 144 MEQ/L (136-145)
[2019-06-02 09:50] LABS: ALBUMIN 3.3 GM/DL (3.2-5.2); ALT/SGPT 32 U/L (12-78); BILIRUBIN,TOTAL 0.4 MG/DL (0.2-1.0); BLOOD UREA NITROGEN 18 MG/DL (7-18); CALCIUM LEVEL 8.7 MG/DL (8.8-10.2); CARBON DIOXIDE LEVEL 34 MEQ/L (21-32); CHLORIDE LEVEL 108 MEQ/L (98-107); CREATININE FOR GFR 0.78 MG/DL (0.55-1.30); GLOMERULAR FILTRATION RATE > 60.0 (>32); GLUCOSE, FASTING 114 MG/DL (70-100); POTASSIUM SERUM 3.8 MEQ/L (3.5-5.1); SODIUM LEVEL 145 MEQ/L (136-145); TOTAL PROTEIN 6.1 GM/DL (6.4-8.2)
[2019-06-02] MEDS ORDERED: MECL-86 PO (12:53)
--- NOTE | 2019-06-02 21:20 | DSES ---
DATE OF ADMISSION: 06/01/2019 DATE OF DISCHARGE: 06/02/2019 PRIMARY DISCHARGE DIAGNOSIS: 1. Peripheral vertigo. 2. Chronic obstructive pulmonary disease. 3. Hypertension. 4. Hyperlipidemia. 5. Vitamin D deficiency. 6. Osteoporosis. 7. Chronic hypokalemia. 8. Reflux. 9. Anxiety. DISCHARGE MEDICATIONS: - meclizine 50 mg daily - acetaminophen 650 four times a day as needed for pain or fever - ProAir HFA two puffs inhaled four times a day - alendronate 70 mg weekly - Norvasc 10 daily - aspirin 81 three times weekly - atorvastatin 40 at bedtime - Refresh one drop both eyes four times a day - clonazepam 0.25 at bedtime, 0.125 at bedtime as needed for anxiety - vitamin D 50,000 units weekly - Nasonex 600 twice a day - Boost by mouth twice a day - Synthroid 25 mcg at bedtime - Bengay topically four times a day as needed - Vaseline nares at bedtime - sodium chloride 20 mEq twice a day - potassium chloride 20 mEq twice a day - sodium chloride two sprays nares four times a day DISCHARGE INSTRUCTIONS: Followup with primary care physician within 7 days of hospital discharge. Outpatient referral to a vestibular physical therapist for balance and vestibular exercises. HOSPITAL COURSE: This is an 83-year-old female who lives along with her dog of 8 years with history of chronic obstructive pulmonary disease (COPD), Meniere's, hypothyroidism, dyslipidemia, reflux, benign essential tremor who presented to the hospital with 1-day history of dizziness, right lower extremity numbness with a history of migraines and neuropathy in the past. Patient describes a spinning sensation, making her feel like she is about to fall. She otherwise denies any falls, ringing in the ears, head trauma, upper respiratory infection, fever, chills. In the emergency room (ER) blood pressure was 174/72. Lab work was normal. MRI/MRA were negative for cerebellar cerebrovascular accident (CVA). Patient was evaluated by physical therapy (PT), who recommended vestibular PT as outpatient. Patient was safe for hospital discharge. No other acute issues during this hospital stay. Urinalysis was negative for a urinary tract infection (UTI). Labs were within normal limits. She was discharged in stable condition. PHYSICAL EXAMINATION ON DISCHARGE: Temperature 97.3, pulse 72, respiratory rate 18, blood pressure 130/63, 94% on room air. GENERAL: She has benign head tremors. No jugular venous distention (JVD), thyromegaly, cervical lymphadenopathy. LUNGS: Clear to auscultation. No wheezing or rales. HEART: S1, S2, sinus rhythm. ABDOMEN: Soft, nontender, nondistended. Positive bowel sounds. EXTREMITIES: No clubbing, cyanosis, or pitting edema. LABORATORY DATA ON DISCHARGE: White count 3.7, hemoglobin 14, hematocrit 43, platelet count 179. Sodium 145, potassium 3.8, chloride 108, bicarbonate 34, BUN 18, creatinine 0.78, glucose of 114. Respiratory panel June 02 negative. MRI of the brain 06/01/2019: No acute findings. MRA of the brain: Negative findings. Chest x-ray 06/01/2019: COPD with bullous emphysema. No parenchymal mass. Some basilar fibrosis and bronchitis, bronchiectasis or both. Skin folds over the right mid and upper chest. No pneumothorax. Urinalysis: Turbid appearance. Negative protein, glucose, ketone, blood, nitrite, bilirubin. Negative leukocyte esterase. 0 WBC. Negative bacteria. TIME SPENT ON DISCHARGE: 30 minutes. MTDD
[2019-06-05] MEDS ORDERED: VITAMIN D 50,000 UNITS CAPSULE (ERGOCALCIFEROL 1.25MG) PO SCH (09:00)
== END 2019-06-02 14:45 | disposition home health service (06) ==
LOC: EDBD 16:20 → M ED 16:20 → M ED INP 20:20 → ENRESERV 20:31 → M MS4PR 21:00
PROVIDERS: ADMIT Internal Medicine; ATTEND Internal Medicine
DX: H81.399 Other peripheral vertigo, unspecified ear (principal); J44.9 Chronic obstructive pulmonary disease, unspecified; I10 Essential (primary) hypertension; E78.49 Other hyperlipidemia; H81.09 Meniere's disease, unspecified ear; G25.0 Essential tremor; E55.9 Vitamin D deficiency, unspecified; M81.0 Age-related osteoporosis without current pathological fracture; E87.6 Hypokalemia; K21.9 Gastro-esophageal reflux disease without esophagitis; E03.9 Hypothyroidism, unspecified; F41.9 Anxiety disorder, unspecified; Z79.82 Long term (current) use of aspirin; Z79.899 Other long term (current) drug therapy; Z79.51 Long term (current) use of inhaled steroids; Z88.0 Allergy status to penicillin; Z88.2 Allergy status to sulfonamides; Z88.1 Allergy status to other antibiotic agents; Z88.8 Allergy status to other drugs, medicaments and biological substances
CPT/HCPCS: 36415; 70450; 70544; 70551; 71045; 80053; 81001; 82550; 82553; 83735; 84439; 84443; 84484; 85025; 85610; 85730; 87486; 87581; 87633; 87798; 93005; 93041; 94760; 97112; 97116; 97162; 97165; 99285; G0378

== ENCOUNTER → 2019-10-27 | Outpatient (REF) | payer MEDICARE, OTHER ==
[~2019-10-27] MED LIST changes: +ACET-907 PO; +BENGGEL2 TOP; +BUSP10TA PO; +EQL0.65S; +LACT237L7 PO; +MECL-86 PO; +MUCI600T31 PO; +POTA1TAB14 PO; +TRIH2TAB3 PO; +VASEGEL6 NARES; +VITA-243 PO; +VITA50005 PO; -VITA500T PO
[2019-10-27 13:59] LABS: BASO # 0.1 10^3/uL (0.0-0.2); BASO % 1.3 % (0.0-1.0); EOS # 0.3 10^3/uL (0.0-0.5); EOS % 5.3 % (0.0-3.0); HEMATOCRIT 45.6 % (36.0-47.0); HEMOGLOBIN 14.4 g/dl (12.0-15.5); LYMPH # 0.9 10^3/uL (1.5-5.0); MEAN CORPUSCULAR HEMOGLOBIN 29.6 pg (27.0-33.0); MEAN CORPUSCULAR HGB CONC 31.6 g/dl (32.0-36.5); MEAN CORPUSCULAR VOLUME 93.8 fl (80.0-96.0); MONO # 0.5 10^3/uL (0.0-0.8); MONO % 10.7 % (0.0-5.0); NEUTROPHILS # 2.9 10^3/uL (1.5-8.5); NEUTROPHILS % 62.5 % (36.0-66.0); PLATELET COUNT, AUTOMATED 232 10^3/uL (150-450); RED BLOOD COUNT 4.86 10^6/uL (4.00-5.40); WHITE BLOOD COUNT 4.7 10^3/uL (4.0-10.0)
[2019-10-27 14:05] LABS: ALBUMIN 3.4 GM/DL (3.2-5.2); ALT/SGPT 72 U/L (12-78); BILIRUBIN,TOTAL 0.4 MG/DL (0.2-1.0); BLOOD UREA NITROGEN 30 MG/DL (7-18); CALCIUM LEVEL 8.6 MG/DL (8.8-10.2); CARBON DIOXIDE LEVEL 32 MEQ/L (21-32); CHLORIDE LEVEL 106 MEQ/L (98-107); CHOLESTEROL LEVEL 188 MG/DL (<200); CHOLESTEROL RISK RATIO 2.805 (<5); CREATININE FOR GFR 0.86 MG/DL (0.55-1.30); GLOMERULAR FILTRATION RATE > 60.0 (>32); GLUCOSE, FASTING 93 MG/DL (70-100); HDL CHOLESTEROL 67 MG/DL (>40); LDL CHOLESTEROL 109 MG/DL (<100); MAGNESIUM LEVEL 2.4 MG/DL (1.8-2.4); NON-HDL-C 121 MG/DL; SODIUM LEVEL 141 MEQ/L (136-145); TOTAL 25(OH) VITAMIN D 125.6 NG/ML (30.0-100.0); TOTAL PROTEIN 6.9 GM/DL (6.4-8.2); TRIGLYCERIDES LEVEL 62 MG/DL (<150); VITAMIN B12 LEVEL 1765 PG/ML
[2019-10-27 14:06] LABS: FOLATE > 24.0 NG/ML
== END ==
LOC: M PLALAB 10:59
PROVIDERS: ATTEND Internal Medicine
DX: R53.82 Chronic fatigue, unspecified (principal); I11.9 Hypertensive heart disease without heart failure; E78.2 Mixed hyperlipidemia; E55.9 Vitamin D deficiency, unspecified; Z79.51 Long term (current) use of inhaled steroids; Z79.899 Other long term (current) drug therapy; Z79.82 Long term (current) use of aspirin

== ENCOUNTER → 2019-12-21 | Emergency (ER) | payer MEDICARE, OTHER ==
[~2019-12-21] MED LIST changes: -AMLO10TA5 PO; +AMLO1TAB24 PO; +AMLO1TAB25 PO; -AMLO5TAB6 PO; -ASPI81TA85 PO; +ASPI81TA86 PO; +DOXYCYCLINE HYCLATE 100MG TABLET As Ordered ONE
--- NOTE | 2020-01-24 15:43 | ECGEPIP ---
[facility] - ED Test Date: 2019-12-21 Pat Name: MYCHAL ADAIR Department: Room: - Gender: Female Network Operations Lead: VEE : 1935 Requested By: MARY ALICE MOORE Order Number: [id number] Reading MD: Clifton España Measurements Intervals [place] Rate: 74 P: 75 TN: 131 QRS: 57 QRSD: 97 T: 67 QT: 370 QTc: 413 Interpretive Statements NORMAL SINUS RHYTHM SEE SCANNED DOWNTIME REPORT
[2020-02-05 09:28] LABS: BASO # 0.1 10^3/uL (0.0-0.2); BASO % 0.9 % (0.0-1.0); EOS # 0.1 10^3/uL (0.0-0.5); EOS % 2.1 % (0.0-3.0); HEMATOCRIT 38.4 % (36.0-47.0); HEMOGLOBIN 12.5 g/dl (12.0-15.5); LYMPH # 0.7 10^3/uL (1.5-5.0); LYMPH % 13.7 % (24.0-44.0); MEAN CORPUSCULAR HEMOGLOBIN 29.8 pg (27.0-33.0); MEAN CORPUSCULAR HGB CONC 32.6 g/dl (32.0-36.5); MEAN CORPUSCULAR VOLUME 91.4 fl (80.0-96.0); MONO # 0.6 10^3/uL (0.0-0.8); MONO % 10.3 % (0.0-5.0); NEUTROPHILS # 3.9 10^3/uL (1.5-8.5); NEUTROPHILS % 72.6 % (36.0-66.0); PLATELET COUNT, AUTOMATED 184 10^3/uL (150-450); WHITE BLOOD COUNT 5.3 10^3/uL (4.0-10.0)
[2020-02-05 09:30] LABS: INR 0.93; PROTHROMBIN TIME 12.7 SECONDS (12.5-14.3)
[2020-03-10 12:53] LABS: BLOOD UREA NITROGEN 23 MG/DL (7-18); CALCIUM LEVEL 9.1 MG/DL (8.8-10.2); CARBON DIOXIDE LEVEL 28 MEQ/L (21-32); CHLORIDE LEVEL 107 MEQ/L (98-107); CREATININE FOR GFR 0.94 MG/DL (0.55-1.30); GLOMERULAR FILTRATION RATE > 60.0 (>32); GLUCOSE, FASTING 103 MG/DL (70-100); POTASSIUM SERUM 4.1 MEQ/L (3.5-5.1); SODIUM LEVEL 141 MEQ/L (136-145)
== END | disposition home or self-care (01) ==
LOC: M ED 20:30
DX: J15.9 Unspecified bacterial pneumonia (principal); R04.2 Hemoptysis; I10 Essential (primary) hypertension; J44.9 Chronic obstructive pulmonary disease, unspecified; E78.5 Hyperlipidemia, unspecified; K21.9 Gastro-esophageal reflux disease without esophagitis; M81.0 Age-related osteoporosis without current pathological fracture; Z88.8 Allergy status to other drugs, medicaments and biological substances; Z88.0 Allergy status to penicillin; Z88.2 Allergy status to sulfonamides; Z88.1 Allergy status to other antibiotic agents; Z91.018 Allergy to other foods; Z79.899 Other long term (current) drug therapy; Z79.82 Long term (current) use of aspirin

== ENCOUNTER → 2020-01-05 | Outpatient (CLI) | payer MEDICARE, OTHER ==
[~2020-01-05] MED LIST changes: -DOXYCYCLINE HYCLATE 100MG TABLET As Ordered ONE
--- NOTE | 2020-02-07 16:37 | REP ---
DIGITAL DIAGNOSTIC BILATERAL MAMMOGRAPHY WITH CAD, 3D TOMOGRAPHY, AND FOCUSED RIGHT BREAST SONOGRAPHY HISTORY: Upper outer quadrant pain. Sensitive right breast. Mastodynia. COMPARISON: Mammography 08/11/2018, 08/07/2017, and 08/02/2016. MAMMOGRAPHIC FINDINGS: Breast parenchyma is extremely dense in a pattern, which may inhibit the sensitivity of mammography. The Volpara breast parenchymal density pattern is D. There is vascular calcification. No dominant density, architectural distortion, mass, or microcalcification is visible mammographically on either side. No worrisome skin change is seen. No change from prior mammography. SONOGRAPHIC FINDINGS: Upper outer quadrant right breast sonography is performed. Heterogeneous fibroglandular background echotexture is seen. No cyst, mass, or suspicious acoustic shadowing is seen. IMPRESSION: BI-RADS Category 1 negative bilateral breast imaging. Clinical follow-up is advised. Repeat screening mammography recommended for women over 40 annually. BIRADS 1: BI-RADS/ACR category 1 mammogram. Negative mammogram. This mammogram was interpreted with the aid of an FDA approved computer-assisted detection system. The patient reports her last clinical breast exam in 11/2019. Patient letter M2 dense. MTDD
== END ==
LOC: M WHC 10:13
PROVIDERS: ATTEND Obstetrics & Gynecology
DX: N64.4 Mastodynia (principal)
CPT/HCPCS: 76642; 77066; G0279

== ENCOUNTER → 2020-01-10 | Outpatient (REF) | payer MEDICARE, OTHER | LOC: M LAB REF 15:53 | PROVIDERS: ATTEND Nurse Practitioner Family | DX: J45.20 Mild intermittent asthma, uncomplicated (principal); J47.9 Bronchiectasis, uncomplicated ==

== ENCOUNTER → 2020-04-26 | Outpatient (REF) | payer MEDICARE, OTHER ==
[2020-04-26 13:29] LABS: ALBUMIN 3.8 GM/DL (3.2-5.2); BILIRUBIN,TOTAL 0.4 MG/DL (0.2-1.0); CALCIUM LEVEL 9.3 MG/DL (8.8-10.2); CHOLESTEROL RISK RATIO 2.739 (<5); CREATININE FOR GFR 0.98 MG/DL (0.55-1.30); GLOMERULAR FILTRATION RATE 57.4 (>32); MAGNESIUM LEVEL 2.2 MG/DL (1.8-2.4); TOTAL PROTEIN 7.2 GM/DL (6.4-8.2)
[2020-04-26 13:52] LABS: TOTAL 25(OH) VITAMIN D 102.3 NG/ML (30.0-100.0)
== END ==
LOC: M PLALAB 10:59
PROVIDERS: ATTEND Internal Medicine
DX: I11.9 Hypertensive heart disease without heart failure (principal); E78.2 Mixed hyperlipidemia; E55.9 Vitamin D deficiency, unspecified

== ENCOUNTER → 2020-05-03 | Outpatient (CLI) | payer MEDICARE, OTHER ==
--- NOTE | 2020-05-03 15:38 | REPPI ---
INDICATION: Z87.01 HISTORY OF PNEUMONIA COMPARISON: 12/21/2019, 02/23/2018 TECHNIQUE: PA and lateral. FINDINGS: Mediastinum and cardiac silhouette are normal. Lung ocampo demonstrate advanced COPD/emphysematous changes. Subtle scattered right mid to lower lobe nodular densities are suggested and appear unchanged when compared to 02/23/2018. No acute consolidation, effusion, or pneumothorax. Skeletal structures demonstrate advanced osteopenia and degenerative findings. IMPRESSION: No acute cardiopulmonary process. COPD and emphysematous disease. Stable nodule suggested in the right lower lung zone. If the patient remains symptomatic consider chest CT for further investigation. <Electronically signed by Finn Escobar > 05/03/20 [id number]
== END ==
LOC: M PLAIMG 15:20
PROVIDERS: ATTEND Internal Medicine
DX: J44.9 Chronic obstructive pulmonary disease, unspecified (principal); R91.8 Other nonspecific abnormal finding of lung field; Z87.01 Personal history of pneumonia (recurrent)
CPT/HCPCS: 71046; G0463

== ENCOUNTER → 2020-08-04 | Outpatient (CLI) | payer MEDICARE, OTHER ==
--- NOTE | 2020-08-04 12:33 | REPMRS ---
Patient History The patient states she had a clinical breast exam in 12/2019 Family history of breast cancer at age 50 or over in niece, breast cancer at age 50 or over in sister, unknown cancer at age 50 or over in maternal uncle, breast cancer under age 50 in niece. Benign excisional biopsy of the left breast, 2001. Digital Woman Screen Mammo: August 04, 2020 - Exam #: [id number] Bilateral CC and MLO view(s) were taken. Technologist: Pattie Washington, Technologist Prior study comparison: January 05, 2020, diagnostic bilateral mammo performed at [facility]. August 11, 2018, bilateral digital woman screen mammo performed at [facility]. August 07, 2017, digital woman screen mammo performed at [facility]. FINDINGS: The breast tissue is extremely dense which could obscure a lesion on mammography. The Volpara volumetric breast density category is: D. There is an extremely dense symmetrical pattern of residual fibroglandular tissue. There has been no change in the appearance of the mammogram from the previous studies. There is no interval development of dominant mass, archetectural distortion, or grouped microcalcifications suggestive of malignancy. 3-D tomosynthesis shows no additional findings. Assessment: BI-RADS/ACR category 1 mammogram. Negative Mammogram. Recommendation Routine screening mammogram of both breasts in 1 year (for women over age 40). This mammogram was interpreted with the aid of an FDA-approved computer-aided dectection system. Electronically Signed By: Tuan Muhammad MD 08/04/20 [id number]
== END ==
LOC: M WHC 10:43
PROVIDERS: ATTEND Obstetrics & Gynecology
DX: Z12.31 Encounter for screening mammogram for malignant neoplasm of breast (principal); Z80.3 Family history of malignant neoplasm of breast

== ENCOUNTER → 2020-08-07 | Outpatient (CLI) | payer MEDICARE, OTHER ==
--- NOTE | 2020-08-07 19:08 | REPPI ---
INDICATION: J47.9 BRONCHIECTASIS. COMPARISON: Comparison chest x-ray May 03, 2020. TECHNIQUE: Two views.. FINDINGS: The lungs are hyperinflated consistent with COPD. No infiltrate is seen. There is mild linear fibrosis in the right upper perihilar region. Emphysematous changes are noted. The heart is not enlarged. The aorta is tortuous and calcific. There is diffuse osteopenia but thoracic vertebral body heights are preserved. The patient is extremely thin. IMPRESSION: Evidence of COPD. No acute infiltrate.. <Electronically signed by Tuan Muhammad > 08/07/20 [id number]
== END ==
LOC: M PLAIMG 14:37
PROVIDERS: ATTEND Internal Medicine Pulmonary Disease
DX: J47.9 Bronchiectasis, uncomplicated (principal); M85.88 Other specified disorders of bone density and structure, other site

== ENCOUNTER → 2020-10-20 | Outpatient (REF) | payer MEDICARE, OTHER ==
[2020-10-20 13:06] LABS: BASO # 0.1 10^3/uL (0.0-0.2); BASO % 1.7 % (0.0-1.0); EOS # 0.1 10^3/uL (0.0-0.5); EOS % 2.5 % (0.0-3.0); HEMATOCRIT 42.7 % (36.0-47.0); HEMOGLOBIN 13.7 g/dl (12.0-15.5); LYMPH # 0.6 10^3/uL (1.5-5.0); LYMPH % 17.2 % (24.0-44.0); MEAN CORPUSCULAR HEMOGLOBIN 29.8 pg (27.0-33.0); MEAN CORPUSCULAR HGB CONC 32.1 g/dl (32.0-36.5); MONO # 0.4 10^3/uL (0.0-0.8); MONO % 11.5 % (2.0-8.0); NEUTROPHILS # 2.4 10^3/uL (1.5-8.5); NEUTROPHILS % 66.8 % (36.0-66.0); PLATELET COUNT, AUTOMATED 187 10^3/uL (150-450); RED BLOOD COUNT 4.59 10^6/uL (4.00-5.40); WHITE BLOOD COUNT 3.6 10^3/uL (4.0-10.0)
[2020-10-20 15:04] LABS: ALBUMIN 3.7 GM/DL (3.2-5.2); ALT/SGPT 29 U/L (12-78); BILIRUBIN,TOTAL 0.5 MG/DL (0.2-1.0); BLOOD UREA NITROGEN 27 MG/DL (7-18); CALCIUM LEVEL 8.9 MG/DL (8.8-10.2); CARBON DIOXIDE LEVEL 29 MEQ/L (21-32); CHLORIDE LEVEL 106 MEQ/L (98-107); CHOLESTEROL LEVEL 158 MG/DL (<200); CREATININE FOR GFR 0.86 MG/DL (0.55-1.30); GLOMERULAR FILTRATION RATE > 60.0 (>32); GLUCOSE, FASTING 87 MG/DL (70-100); HDL CHOLESTEROL 81 MG/DL (>40); LDL CHOLESTEROL 65 MG/DL (<100); MAGNESIUM LEVEL 2.4 MG/DL (1.8-2.4); NON-HDL-C 77 MG/DL; POTASSIUM SERUM 4.2 MEQ/L (3.5-5.1); SODIUM LEVEL 141 MEQ/L (136-145); TOTAL PROTEIN 6.8 GM/DL (6.4-8.2); TRIGLYCERIDES LEVEL 62 MG/DL (<150); URIC ACID 3.3 MG/DL (2.6-6.0)
[2020-10-20 15:08] LABS: MAU/CREAT RATIO 71.7 MCG/MG (0.0-30.0)
[2020-10-20 17:37] LABS: HEMOGLOBIN A1c 5.7 %
== END ==
LOC: M PLALAB 11:22
PROVIDERS: ATTEND Internal Medicine
DX: J45.40 Moderate persistent asthma, uncomplicated (principal); I11.9 Hypertensive heart disease without heart failure; E11.29 Type 2 diabetes mellitus with other diabetic kidney complication; E78.2 Mixed hyperlipidemia; E03.9 Hypothyroidism, unspecified; M10.9 Gout, unspecified

== ENCOUNTER → 2020-12-25 | Outpatient (REF) | payer MEDICARE, OTHER ==
[~2020-12-25] MED LIST changes: +ERGO500029 PO; -VITA50005 PO
== END ==
LOC: M SFHCPLAZ 13:43
PROVIDERS: ATTEND Internal Medicine
DX: R63.4 Abnormal weight loss (principal); E03.9 Hypothyroidism, unspecified

== ENCOUNTER → 2020-12-25 | Outpatient (CLI) | payer MEDICARE, OTHER ==
[2020-12-25 15:44] LABS: BASO # 0.1 10^3/uL (0.0-0.2); BASO % 0.8 % (0.0-1.0); EOS # 0.1 10^3/uL (0.0-0.5); EOS % 1.1 % (0.0-3.0); HEMATOCRIT 45.4 % (36.0-47.0); HEMOGLOBIN 14.5 g/dl (12.0-15.5); LYMPH # 0.8 10^3/uL (1.5-5.0); LYMPH % 10.1 % (24.0-44.0); MEAN CORPUSCULAR HGB CONC 31.9 g/dl (32.0-36.5); MONO # 0.8 10^3/uL (0.0-0.8); MONO % 9.2 % (2.0-8.0); NEUTROPHILS # 6.5 10^3/uL (1.5-8.5); NEUTROPHILS % 78.6 % (36.0-66.0); PLATELET COUNT, AUTOMATED 249 10^3/uL (150-450); RED BLOOD COUNT 4.83 10^6/uL (4.00-5.40); WHITE BLOOD COUNT 8.3 10^3/uL (4.0-10.0)
[2020-12-25 16:17] LABS: ALBUMIN 3.6 GM/DL (3.2-5.2); BILIRUBIN,TOTAL 0.4 MG/DL (0.2-1.0); CALCIUM LEVEL 8.8 MG/DL (8.8-10.2); FREE T4 0.94 NG/DL (0.76-1.46); THYROID STIMULATING HORMONE 2.01 uIU/ML (0.358-3.740); TOTAL PROTEIN 7.2 GM/DL (6.4-8.2)
== END ==
LOC: M PLALAB 14:01
PROVIDERS: ATTEND Internal Medicine
DX: R63.4 Abnormal weight loss (principal); E03.9 Hypothyroidism, unspecified

== ENCOUNTER → 2021-01-05 | Outpatient (CLI) | payer MEDICARE, OTHER ==
--- NOTE | 2021-01-05 10:39 | REP ---
INDICATION: WT LOSS COMPARISON: None TECHNIQUE: Real time B-mode lester scale ultrasound examination using curved array transducer. FINDINGS: Liver, spleen, and pancreas are normal in contour, size, echogenicity, and overall appearance. No focal hepatic, splenic or pancreatic lesions are identified. Gallbladder is normal without gallstones, wall thickening, or pericholecystic fluid. No biliary ductal dilatation is appreciated and the common bile duct measures 2.1 mm in diameter. Right kidney is normal and measures 10.2 x 6.2 x 3.0 cm. Left kidney measures approximately 8.2 x 4.0 x 3.4 cm with suggestion for 1.8 cm midpole hyperechoic mass. Atherosclerotic changes to the visualized abdominal aorta noted. No obvious ascites. IMPRESSION: 1. Cannot exclude 1.8 cm left renal mass. Pre and postcontrast CT of the abdomen and pelvis should be considered for further investigation. 2. Otherwise unremarkable complete abdominal ultrasound. <Electronically signed by Finn Escobar > 01/05/21 [id number]
== END ==
LOC: M RAD 09:28
PROVIDERS: ATTEND Internal Medicine
DX: R63.4 Abnormal weight loss (principal); I70.0 Atherosclerosis of aorta

== ENCOUNTER → 2021-01-11 | Outpatient (CLI) | payer MEDICARE, OTHER ==
[~2021-01-11] MED LIST changes: +ISOVUE-370 76% 100ML VIAL As Ordered ONE
--- NOTE | 2021-01-11 15:08 | REP ---
INDICATION: RENAL MASS. COMPARISON: Ultrasound 01/05/2021, CT 09/20/2013. TECHNIQUE: CT abdomen and pelvis performed without IV contrast. CT abdomen and pelvis performed with IV contrast as well, following intravenous administration of 100 cc of Isovue 370. Sagittal, coronal and 3D MIP reconstruction images are performed. FINDINGS: Lung bases: There is mild reticulonodular density laterally in the right lung base. There is a small amount of pericardial fluid/thickening inferiorly on the right, mildly increased since the prior study. Liver: There is a small area of focal fatty infiltration along the falciform ligament Gallbladder: Unremarkable. Spleen: Normal. Adrenals: Normal. Pancreas: Normal. 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 There is no hydronephrosis. There is no renal calculus bilaterally. Small and large bowel: Unremarkable. Free fluid: None. Adenopathy: None. Appendix: Prior appendectomy. Osseous structures: There are degenerative changes of the spine without compression deformity.. Metallic fixation is seen in the proximal right femur. Pelvis: No mass. Prior hysterectomy. IMPRESSION: Mild reticulonodular density laterally in the right lung base may represent a small area of infiltrate. 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 No other significant renal abnormality is seen. <Electronically signed by Blair Coker > 01/11/21 [id number]
== END ==
LOC: M RAD 13:31
PROVIDERS: ATTEND Internal Medicine
DX: D17.5 Benign lipomatous neoplasm of intra-abdominal organs (principal); Z90.49 Acquired absence of other specified parts of digestive tract; R91.8 Other nonspecific abnormal finding of lung field
CPT/HCPCS: 74178; Q9967

== ENCOUNTER → 2021-02-07 | Outpatient (CLI) | payer MEDICARE, OTHER ==
[~2021-02-07] MED LIST changes: -ISOVUE-370 76% 100ML VIAL As Ordered ONE
[2021-02-07 13:44] LABS: CREATININE FOR GFR 1.16 MG/DL (0.55-1.30); GLOMERULAR FILTRATION RATE 47.2 (>32)
== END ==
LOC: M PLALAB 09:52
PROVIDERS: ATTEND Otolaryngology
DX: R13.10 Dysphagia, unspecified (principal)

== ENCOUNTER → 2021-02-13 | Outpatient (CLI) | payer MEDICARE, OTHER ==
[~2021-02-13] MED LIST changes: +E-Z-GAS II EFFERVESCENT PACKET (SODIUM BICARB./CITRIC ACID/SIMETHICONE) As Ordered ONE; +E-Z-HD 98% w/w 340GM SUSP BTL As Ordered ONE; +E-Z-PAQUE 96% w/w SUSP 176GM BTL As Ordered ONE; +ISOVUE-370 76% 100ML VIAL As Ordered ONE
--- NOTE | 2021-02-13 10:28 | REPVR ---
PROCEDURE INFORMATION: Exam: CT Neck With Contrast Exam date and time: 02/13/2021 9:44 AM Age: 85 years old Clinical indication: Neck pain; Additional info: Dysphagia CT first then XR TECHNIQUE: Imaging protocol: Computed tomography images of the neck with contrast. Radiation optimization: All CT scans at this facility use at least one of these dose optimization techniques: automated exposure control; mA and/or kV adjustment per patient size (includes targeted exams where dose is matched to clinical indication); or iterative reconstruction. Contrast material: ISO 370; Contrast volume: 75 ml; Contrast route: INTRAVENOUS (IV); COMPARISON: CT Neck with contrast 12/24/2016 4:34 PM FINDINGS: Brain: The included brain demonstrates moderate diffuse involutional changes and moderate white matter hypodensity suggestive of small vessel disease. Orbital cavity: Bilateral lens replacements. Mastoid air cells: The mastoids are well aerated. Paranasal sinuses: Polypoid thickening in the base of the right maxillary sinus. No air-fluid levels. Nasopharynx: Unremarkable. Dental: Artifact from patient's dental hardware. Oropharynx: Unremarkable. No significant tonsillar enlargement. Hypopharynx: Unremarkable. Larynx: The epiglottis is sharp. Retropharyngeal space: Unremarkable. Submandibular/Parotid glands: Normal. Glands are normal in size. Thyroid: No focal thyroid lesions outside of a 3 mm hypodensity in the left lobe not requiring follow-up. Lymph nodes: No confluent lymphadenopathy in the neck. Trachea: Visualized trachea is unremarkable. Lungs: The included lungs are clear with apical pleural thickening and some emphysematous changes. Granuloma in the right upper lobe. Bones/joints: No acute calvarial fracture. Age-appropriate degenerative changes along the spine without acute fracture line. Vasculature: Carotid atherosclerotic changes can be followed with ultrasound. The carotid arteries are somewhat medialized. Soft tissues: The patient lacks significant subcutaneous fat. Other findings: The airway is widely patent. IMPRESSION: No dominant mass or confluent lymphadenopathy. No CT explanation for the patient's dysphagia. Electronically signed by: Steven Kim On 02/13/2021 10:27:41 AM
--- NOTE | 2021-02-13 16:33 | REP ---
INDICATION: DYSPHAGIA CT FIRST THEN XRAY. COMPARISON: None. TECHNIQUE: This procedure was performed under the direct supervision of Dr. Muhammad. Images were reviewed with Dr. Muhammad. Liquid barium was given in the erect position in order to perform a single contrast esophagram examination. A combination of fluoroscopy, spot films and last image hold technology was utilized. 0.4 minutes of fluoro time was utilized for this procedure. FINDINGS: A single view PA chest x-ray is submitted as a multimedia coordinator film. The superior mediastinal structures are midline. The heart size is within normal limits. The lungs are clear. There is hyperinflation and emphysematous changes consistent with COPD. During the oral and pharyngeal stages of deglutition, the epiglottis fails to invert consistently. There is aspiration without cough response. The remainder of the exam was then discontinued. The visualized portion of the esophagus is grossly normal. IMPRESSION: During the oral and pharyngeal stages of deglutition, the epiglottis fails to invert consistently. There is aspiration without cough response. The remainder of the examination was discontinued. The visualized portion of the esophagus is grossly normal. <Electronically signed by Robbin Calabrese > 02/13/21 1625 <Electronically signed by Tuan Muhammad > 02/13/21 1632
== END ==
LOC: M RAD 09:16
PROVIDERS: ATTEND Otolaryngology
DX: R13.10 Dysphagia, unspecified (principal); J32.0 Chronic maxillary sinusitis; J43.9 Emphysema, unspecified
CPT/HCPCS: 70491; 74220; Q9967

== ENCOUNTER → 2021-02-28 | Outpatient (CLI) | payer MEDICARE, OTHER ==
[~2021-02-28] MED LIST changes: -E-Z-GAS II EFFERVESCENT PACKET (SODIUM BICARB./CITRIC ACID/SIMETHICONE) As Ordered ONE; -E-Z-HD 98% w/w 340GM SUSP BTL As Ordered ONE; -E-Z-PAQUE 96% w/w SUSP 176GM BTL As Ordered ONE; -ISOVUE-370 76% 100ML VIAL As Ordered ONE
--- NOTE | 2021-02-28 14:58 | REP ---
INDICATION: STENOSIS COMPARISON: 05/31/2013. TECHNIQUE: Real-time ultrasound evaluation and duplex Doppler interrogation of the extracranial carotid vasculature is performed. FINDINGS: There is mild plaquing and narrowing in both carotid bulbs extending into the internal and external carotid arteries. Luminal narrowing is less than 50%. There is no evidence of hemodynamically significant stenosis of either internal carotid artery. Normal flow velocities are seen. The vertebral arteries demonstrate normal direction of flow. RIGHT LEFT Peak systolic velocity ICA 117.2 cm/s 117.2 cm/s End diastolic velocity ICA 15.5 cm/s 10.6 cm/s Peak systolic velocity CCA 98.2 cm/s 71.6cm/s Peak systolic velocity ECA 95.2 cm/s 118.8 cm/s ICA/CCA ratio 1.2 1.6 IMPRESSION: Bilateral luminal narrowing of the internal carotid arteries less than 50%. No evidence of hemodynamically significant stenosis. <Electronically signed by Blair Coker > 02/28/21 [id number]
== END ==
LOC: M RAD 13:22
PROVIDERS: ATTEND Otolaryngology
DX: I65.23 Occlusion and stenosis of bilateral carotid arteries (principal)

== ENCOUNTER → 2021-03-09 | Outpatient (CLI) | payer MEDICARE, OTHER ==
[~2021-03-09] MED LIST changes: +BARIUM SULFATE 700 MG TABLET (E-Z-DISK) As Ordered ONE; +E-Z-PAQUE 96% w/w SUSP 176GM BTL As Ordered ONE; +VARIBAR NECTAR 40% w/v 240ML SUSP BTL As Ordered ONE; +VARIBAR PUDDING 40% w/v 230ML TUBE As Ordered ONE
--- NOTE | 2021-03-09 16:57 | REP ---
INDICATION: R13.10 DYSPHAGIA. COMPARISON: None. TECHNIQUE: The procedure was performed by ARNOLD Smiley, under the direct supervision of Dr. Coker. The procedure was performed with She Coffey from speech pathology present. 5 ml aliquots of thin, pudding, mixed fruit, soft food, hard food and pill consistency barium was administered. FINDINGS: The patient was able to successfully swallow all consistencies of barium. No penetration or aspiration was seen on this examination. The detailed report of this examination will be provided by speech pathology. IMPRESSION: The patient was able to successfully swallow all consistencies of barium. No penetration or aspiration was seen on this examination. Please see detailed report from speech pathology for further evaluation. 3.8 minutes of fluoroscopy time was utilized for this procedure. Some fluoroscopic images are performed with last image hold technology. These images require no additional radiation <Electronically signed by Maine Martinez > 03/09/21 [id number] <Electronically signed by Blair Coker > 03/09/21 [id number]
== END ==
LOC: M RAD 09:35
PROVIDERS: ATTEND Otolaryngology
DX: R13.10 Dysphagia, unspecified (principal)

== ENCOUNTER → 2021-03-15 | Outpatient (CLI) | payer MEDICARE, OTHER ==
[~2021-03-15] MED LIST changes: -BARIUM SULFATE 700 MG TABLET (E-Z-DISK) As Ordered ONE; -E-Z-PAQUE 96% w/w SUSP 176GM BTL As Ordered ONE; -VARIBAR NECTAR 40% w/v 240ML SUSP BTL As Ordered ONE; -VARIBAR PUDDING 40% w/v 230ML TUBE As Ordered ONE
[2021-03-15 16:46] LABS: ALBUMIN 3.6 GM/DL (3.2-5.2); BILIRUBIN,TOTAL 0.4 MG/DL (0.2-1.0); CALCIUM LEVEL 9.5 MG/DL (8.8-10.2); CHOLESTEROL RISK RATIO 2.32 (<5); CREATININE FOR GFR 1.02 MG/DL (0.55-1.30); GLOMERULAR FILTRATION RATE 54.7 (>32); MAGNESIUM LEVEL 2.2 MG/DL (1.8-2.4); POTASSIUM SERUM 4.2 MEQ/L (3.5-5.1)
[2021-03-15 16:49] LABS: HEMOGLOBIN A1c 5.9 %
[2021-03-15 17:03] LABS: MAU/CREAT RATIO 48.3 MCG/MG (0.0-30.0)
== END ==
LOC: M WUC 11:41
PROVIDERS: ATTEND Internal Medicine
DX: E78.2 Mixed hyperlipidemia (principal); I11.9 Hypertensive heart disease without heart failure; E11.29 Type 2 diabetes mellitus with other diabetic kidney complication

== ENCOUNTER 2021-03-27 13:16 | Outpatient (RCR) | payer MEDICARE, OTHER | END 2021-04-10 | LOC: M ST 13:16 | PROVIDERS: ATTEND Otolaryngology | DX: R13.10 Dysphagia, unspecified (principal) ==

== ENCOUNTER → 2021-05-24 | Outpatient (REF) | payer MEDICARE, OTHER | LOC: M LAB REF 17:24 | PROVIDERS: ATTEND Dermatology | DX: D23.72 Other benign neoplasm of skin of left lower limb, including hip (principal) | CPT/HCPCS: 11102; 17000; 88305; G0463 ==

== ENCOUNTER → 2021-09-06 | Outpatient (CLI) | payer MEDICARE, OTHER ==
[2021-09-06 13:34] LABS: HEMOGLOBIN A1c 5.7 %
[2021-09-06 13:48] LABS: BLOOD UREA NITROGEN 34 MG/DL (7-18); CREATININE FOR GFR 0.74 MG/DL (0.55-1.30); GLUCOSE, FASTING 96 MG/DL (70-100)
[2021-09-06 13:49] LABS: ALBUMIN 3.5 GM/DL (3.2-5.2); ALT/SGPT 55 U/L (12-78); BILIRUBIN,TOTAL 0.4 MG/DL (0.2-1.0); CALCIUM LEVEL 9.5 MG/DL (8.8-10.2); CARBON DIOXIDE LEVEL 30 MEQ/L (21-32); CHLORIDE LEVEL 107 MEQ/L (98-107); GLOMERULAR FILTRATION RATE > 60.0 (>32); MAGNESIUM LEVEL 2.1 MG/DL (1.8-2.4); POTASSIUM SERUM 4.4 MEQ/L (3.5-5.1); SODIUM LEVEL 142 MEQ/L (136-145); TOTAL 25(OH) VITAMIN D 94.2 NG/ML (30.0-100.0); TOTAL PROTEIN 6.4 GM/DL (6.4-8.2)
== END ==
LOC: M PLALAB 11:50
PROVIDERS: ATTEND Internal Medicine
DX: I11.9 Hypertensive heart disease without heart failure (principal); E03.9 Hypothyroidism, unspecified; E55.9 Vitamin D deficiency, unspecified; E11.29 Type 2 diabetes mellitus with other diabetic kidney complication

== ENCOUNTER 2021-11-30 16:52 | Inpatient (IN) | payer MEDICARE, OTHER ==
[~2021-11-30] VITALS: Ht 160 cm; Wt 34.3 kg
[2021-11-30] MEDS ORDERED: COMBIVENT RESPIMAT 100-20MCG INHALER 4GM INH ONE (18:00)
[2021-11-30 18:38] LABS: VENOUS PH 7.453 UNITS (7.330-7.430)
[2021-11-30 18:39] LABS: VENOUS BASE EXCESS 3.7 (-2.0-2.0); VENOUS O2 SATURATION 91.3 % (60.0-80.0); VENOUS PARTIAL PRESSURE CO2 40.9 mmHg (38.0-50.0); VENOUS PARTIAL PRESSURE O2 58.5 mmHg (30.0-50.0); VENOUS STANDARD HCO3 27.6 MEQ/L; VENOUS TOTAL CO2 29.2 MEQ/L (24.0-28.0)
[2021-11-30 18:47] LABS: BASO % 0.1 % (0.0-1.0); EOS % 0.2 % (0.0-3.0); HEMATOCRIT 43.3 % (36.0-47.0); HEMOGLOBIN 14.1 g/dl (12.0-15.5); LYMPH # 0.4 10^3/uL (1.5-5.0); LYMPH % 3.8 % (24.0-44.0); MEAN CORPUSCULAR HEMOGLOBIN 30.3 pg (27.0-33.0); MEAN CORPUSCULAR HGB CONC 32.6 g/dl (32.0-36.5); MEAN CORPUSCULAR VOLUME 92.9 fl (80.0-96.0); MONO # 0.8 10^3/uL (0.0-0.8); MONO % 7.5 % (2.0-8.0); NEUTROPHILS # 9.3 10^3/uL (1.5-8.5); NEUTROPHILS % 88.1 % (36.0-66.0); PLATELET COUNT, AUTOMATED 187 10^3/uL (150-450); RED BLOOD COUNT 4.66 10^6/uL (4.00-5.40); WHITE BLOOD COUNT 10.6 10^3/uL (4.0-10.0)
[2021-11-30 19:13] LABS: CK-MB VALUE MASS 2.8 NG/ML (<3.6); MB/CK RELATIVE INDEX 2.83 (< OR =4)
[2021-11-30 19:25] LABS: ALBUMIN 2.9 GM/DL (3.2-5.2); ALT/SGPT 48 U/L (12-78); BILIRUBIN,DIRECT 0.2 MG/DL (0.0-0.2); BILIRUBIN,TOTAL 0.4 MG/DL (0.2-1.0); BLOOD UREA NITROGEN 29 MG/DL (7-18); CALCIUM LEVEL 9.1 MG/DL (8.8-10.2); CARBON DIOXIDE LEVEL 27 MEQ/L (21-32); CHLORIDE LEVEL 108 MEQ/L (98-107); CREATININE FOR GFR 0.66 MG/DL (0.55-1.30); GLOMERULAR FILTRATION RATE > 60.0 (>32); GLUCOSE, FASTING 123 MG/DL (70-100); NT-PRO BNP 215 PG/ML (<450); SODIUM LEVEL 143 MEQ/L (136-145); TOTAL PROTEIN 6.4 GM/DL (6.4-8.2)
[2021-11-30] MEDS ORDERED: methylPREDNISolone 125MG 2ML VIAL IV ONE (21:35)
[2021-11-30] MEDS ORDERED: MOM 30ML SUSPENSION UDC PO PRN (22:05)
[2021-11-30] MEDS ORDERED: guaiFENesin ER 600 MG TAB PO ONE (22:05)
[2021-11-30] MEDS ORDERED: ACETAMINOPHEN TAB 650MG DOSE (2X325MG) PO PRN (22:05)
[2021-11-30] MEDS ORDERED: guaiFENesin DM LIQ 10ML UD PO PRN (22:05)
[2021-11-30] MEDS ORDERED: LEVALBUTEROL 1.25 MG/0.5 ML CONCENTRATE NEB NEB PRN (22:05)
[2021-11-30] MEDS ORDERED: MAALOX 30 ML SUSP *UDC PO PRN (22:05)
[2021-11-30] MEDS ORDERED: ISOVUE-370 76% 100ML VIAL As Ordered ONE (22:12)
[2021-11-30] MEDS ORDERED: DOXY-443 PO (22:16)
[2021-11-30] MEDS ORDERED: AMLO1TAB24 PO (22:16)
[2021-11-30] MEDS ORDERED: HOME MED LIST COMPLETE! XX SCH (22:20)
[2021-11-30] MEDS ORDERED: SODIUM CHLORIDE NASAL 0.65% SPRAY BTL (OCEAN) ONE (22:25)
[2021-11-30 23:00] VITALS: BP 162/82
[2021-11-30 23:28] LABS: INR 0.93; PROTHROMBIN TIME 12.8 SECONDS (12.7-14.5)
[2021-11-30 23:29] LABS: PARTIAL THROMBOPLASTIN TIME 34.4 SECONDS (25.9-37.0)
[2021-12-01] VITALS (7 sets, daily range): BP systolic 130–155; BP diastolic 62–75; O2SAT 94–97
[2021-12-01] MEDS: SODIUM CHLORIDE NASAL 0.65% SPRAY BTL (OCEAN) SCH ×5 (00:49→21:59)
[2021-12-01] MEDS ORDERED: clonazePAM 0.5 MG TAB PO ONE (00:50)
[2021-12-01] MEDS ORDERED: PILL CUTTER 1 EACH XX PRN (00:55)
[2021-12-01] MEDS: IPRATROPIUM 0.5MG/ALBUTEROL 2.5MG INH SOL UD 3ML (DUONEB) NEB SCH ×4 (02:00→20:20)
[2021-12-01] MEDS: LEVOTHYROXINE 25MCG TABLET (0.025MG) PO SCH (06:13)
[2021-12-01 06:29] LABS: HEMATOCRIT 41.2 % (36.0-47.0); HEMOGLOBIN 13.5 g/dl (12.0-15.5); MEAN CORPUSCULAR HEMOGLOBIN 30.5 pg (27.0-33.0); MEAN CORPUSCULAR HGB CONC 32.8 g/dl (32.0-36.5); MEAN CORPUSCULAR VOLUME 93.2 fl (80.0-96.0); PLATELET COUNT, AUTOMATED 207 10^3/uL (150-450); RED BLOOD COUNT 4.42 10^6/uL (4.00-5.40); WHITE BLOOD COUNT 5.5 10^3/uL (4.0-10.0)
[2021-12-01 06:48] LABS: BLOOD UREA NITROGEN 22 MG/DL (7-18); CALCIUM LEVEL 8.9 MG/DL (8.8-10.2); CARBON DIOXIDE LEVEL 31 MEQ/L (21-32); CHLORIDE LEVEL 106 MEQ/L (98-107); CREATININE FOR GFR 0.86 MG/DL (0.55-1.30); GLOMERULAR FILTRATION RATE > 60.0 (>32); GLUCOSE, FASTING 154 MG/DL (70-100); MAGNESIUM LEVEL 2.2 MG/DL (1.8-2.4); POTASSIUM SERUM 4.3 MEQ/L (3.5-5.1); SODIUM LEVEL 144 MEQ/L (136-145)
[2021-12-01] MEDS ORDERED: POTASSIUM CHLORIDE 10MEQ SR TABLET PO SCH (09:00)
[2021-12-01] MEDS ORDERED: ASPIRIN 81MG ENTERIC TABLET PO SCH (09:00)
[2021-12-01] MEDS: guaiFENesin ER 600 MG TAB PO SCH ×2 (09:23→21:58)
[2021-12-01] MEDS: amLODIPine 5 MG TAB PO SCH (09:24)
[2021-12-01] MEDS: predniSONE 20 MG TAB PO SCH (09:24)
[2021-12-01] MEDS: ENOXAPARIN 40MG/0.4ML SYRINGE (J1650 PER 10MG) SC SCH (09:25)
[2021-12-01] MEDS: CEFUROXIME 500 MG TAB PO SCH ×2 (13:22→21:58)
[2021-12-01] MEDS: DOXYCYCLINE HYCLATE 100MG TABLET PO SCH ×2 (13:23→21:58)
[2021-12-01] MEDS: clonazePAM 0.5 MG TAB PO SCH (21:58)
[2021-12-01] MEDS: ATORVASTATIN 20 MG TAB PO SCH (21:58)
[2021-12-01] MEDS: POLYVINYL ALCOHOL OPHTH SOLN 15 ML(LIQUITEARS) OU PRN (22:50)
[2021-12-02 02:06] VITALS: O2SAT 96
[2021-12-02] MEDS: IPRATROPIUM 0.5MG/ALBUTEROL 2.5MG INH SOL UD 3ML (DUONEB) NEB SCH ×2 (03:30→07:48)
[2021-12-02 06:00] VITALS: BP 141/66
[2021-12-02] MEDS: LEVOTHYROXINE 25MCG TABLET (0.025MG) PO SCH (06:09)
[2021-12-02] MEDS: SODIUM CHLORIDE NASAL 0.65% SPRAY BTL (OCEAN) SCH ×4 (06:21→22:21)
[2021-12-02 07:48] VITALS: O2SAT 97
[2021-12-02] MEDS: CEFUROXIME 500 MG TAB PO SCH ×2 (09:35→22:20)
[2021-12-02] MEDS: DOXYCYCLINE HYCLATE 100MG TABLET PO SCH ×2 (09:36→22:21)
[2021-12-02] MEDS: predniSONE 20 MG TAB PO SCH (09:36)
[2021-12-02] MEDS: guaiFENesin ER 600 MG TAB PO SCH ×2 (09:36→22:21)
[2021-12-02] MEDS: ENOXAPARIN 40MG/0.4ML SYRINGE (J1650 PER 10MG) SC SCH (09:37)
[2021-12-02] MEDS: amLODIPine 5 MG TAB PO SCH (09:37)
[2021-12-02] MEDS ORDERED: IPRATROPIUM 0.5MG/ALBUTEROL 2.5MG INH SOL UD 3ML (DUONEB) NEB PRN (10:00)
[2021-12-02 12:06] VITALS: O2SAT 95
[2021-12-02 14:00] VITALS: BP 120/63
[2021-12-02] MEDS: SYMBICORT 160/4.5MCG INHALER 6GM INH SCH (19:30)
[2021-12-02] MEDS: clonazePAM 0.5 MG TAB PO SCH (22:19)
[2021-12-02] MEDS: ATORVASTATIN 20 MG TAB PO SCH (22:21)
[2021-12-03 01:02] VITALS: O2SAT 94
[2021-12-03 04:50] VITALS: BP 157/89
[2021-12-03 06:10] LABS: HEMATOCRIT 41.2 % (36.0-47.0); HEMOGLOBIN 13.5 g/dl (12.0-15.5); MEAN CORPUSCULAR HEMOGLOBIN 30.9 pg (27.0-33.0); MEAN CORPUSCULAR HGB CONC 32.8 g/dl (32.0-36.5); MEAN CORPUSCULAR VOLUME 94.3 fl (80.0-96.0); PLATELET COUNT, AUTOMATED 234 10^3/uL (150-450); RED BLOOD COUNT 4.37 10^6/uL (4.00-5.40); WHITE BLOOD COUNT 7.3 10^3/uL (4.0-10.0)
[2021-12-03] MEDS: LEVOTHYROXINE 25MCG TABLET (0.025MG) PO SCH (06:33)
[2021-12-03 06:48] LABS: BLOOD UREA NITROGEN 25 MG/DL (7-18); CALCIUM LEVEL 8.6 MG/DL (8.8-10.2); CARBON DIOXIDE LEVEL 31 MEQ/L (21-32); CHLORIDE LEVEL 109 MEQ/L (98-107); CREATININE FOR GFR 0.77 MG/DL (0.55-1.30); GLOMERULAR FILTRATION RATE > 60.0 (>32); GLUCOSE, FASTING 90 MG/DL (70-100); MAGNESIUM LEVEL 1.9 MG/DL (1.8-2.4); PHOSPHORUS LEVEL 2.9 MG/DL (2.5-4.9); POTASSIUM SERUM 3.8 MEQ/L (3.5-5.1); SODIUM LEVEL 145 MEQ/L (136-145)
[2021-12-03] MEDS: SYMBICORT 160/4.5MCG INHALER 6GM INH SCH ×2 (07:57→19:41)
[2021-12-03] MEDS: ENOXAPARIN 40MG/0.4ML SYRINGE (J1650 PER 10MG) SC SCH (09:32)
[2021-12-03] MEDS: predniSONE 20 MG TAB PO SCH (09:32)
[2021-12-03] MEDS: guaiFENesin ER 600 MG TAB PO SCH ×2 (09:33→22:00)
[2021-12-03] MEDS: CEFUROXIME 500 MG TAB PO SCH ×2 (09:33→21:59)
[2021-12-03] MEDS: DOXYCYCLINE HYCLATE 100MG TABLET PO SCH ×2 (09:33→22:00)
[2021-12-03] MEDS: amLODIPine 5 MG TAB PO SCH (09:34)
[2021-12-03] MEDS: SODIUM CHLORIDE NASAL 0.65% SPRAY BTL (OCEAN) SCH ×4 (09:45→22:01)
[2021-12-03] MEDS: NYSTATIN 500,000 U/5 ML SUSP UDC SS SCH ×3 (11:19→23:37)
[2021-12-03 12:37] VITALS: O2SAT 95
[2021-12-03 14:00] VITALS: BP 127/61
[2021-12-03 22:00] VITALS: BP 138/69
[2021-12-03] MEDS: ATORVASTATIN 20 MG TAB PO SCH (22:00)
[2021-12-03] MEDS: clonazePAM 0.5 MG TAB PO SCH (22:01)
[2021-12-04 00:59] VITALS: O2SAT 96
[2021-12-04 04:43] VITALS: BP 147/71
[2021-12-04] MEDS: LEVOTHYROXINE 25MCG TABLET (0.025MG) PO SCH (05:31)
[2021-12-04] MEDS: NYSTATIN 500,000 U/5 ML SUSP UDC SS SCH ×4 (05:31→23:06)
[2021-12-04] MEDS: SODIUM CHLORIDE NASAL 0.65% SPRAY BTL (OCEAN) SCH ×4 (05:32→23:07)
[2021-12-04] MEDS: SYMBICORT 160/4.5MCG INHALER 6GM INH SCH ×2 (07:22→19:56)
[2021-12-04 08:00] VITALS: O2SAT 96
[2021-12-04] MEDS: ENOXAPARIN 40MG/0.4ML SYRINGE (J1650 PER 10MG) SC SCH (08:12)
[2021-12-04] MEDS: CEFUROXIME 500 MG TAB PO SCH ×2 (08:12→20:12)
[2021-12-04] MEDS: DOXYCYCLINE HYCLATE 100MG TABLET PO SCH ×2 (08:13→20:11)
[2021-12-04] MEDS: guaiFENesin ER 600 MG TAB PO SCH ×2 (08:13→20:12)
[2021-12-04] MEDS: amLODIPine 5 MG TAB PO SCH (08:13)
[2021-12-04 14:00] VITALS: BP 150/65
[2021-12-04 19:43] VITALS: BP 148/64
[2021-12-04] MEDS: ATORVASTATIN 20 MG TAB PO SCH (20:12)
[2021-12-04] MEDS: clonazePAM 0.5 MG TAB PO SCH (23:06)
[2021-12-05 05:23] VITALS: O2SAT 95
[2021-12-05 05:35] VITALS: BP 163/86
[2021-12-05] MEDS: LEVOTHYROXINE 25MCG TABLET (0.025MG) PO SCH (05:40)
[2021-12-05] MEDS: NYSTATIN 500,000 U/5 ML SUSP UDC SS SCH (05:40)
[2021-12-05 05:51] VITALS: BP 163/86
[2021-12-05] MEDS: amLODIPine 5 MG TAB PO SCH (05:51)
[2021-12-05 06:34] LABS: HEMOGLOBIN 14.1 g/dl (12.0-15.5); MEAN CORPUSCULAR HEMOGLOBIN 30.7 pg (27.0-33.0); MEAN CORPUSCULAR HGB CONC 32.8 g/dl (32.0-36.5); MEAN CORPUSCULAR VOLUME 93.5 fl (80.0-96.0); PLATELET COUNT, AUTOMATED 256 10^3/uL (150-450); WHITE BLOOD COUNT 7.2 10^3/uL (4.0-10.0)
[2021-12-05 06:58] LABS: BLOOD UREA NITROGEN 18 MG/DL (7-18); CALCIUM LEVEL 8.8 MG/DL (8.8-10.2); CARBON DIOXIDE LEVEL 31 MEQ/L (21-32); CHLORIDE LEVEL 104 MEQ/L (98-107); GLOMERULAR FILTRATION RATE > 60.0 (>32); GLUCOSE, FASTING 115 MG/DL (70-100); POTASSIUM SERUM 3.4 MEQ/L (3.5-5.1); SODIUM LEVEL 141 MEQ/L (136-145)
[2021-12-05] MEDS ORDERED: POTASSIUM CHLORIDE 10MEQ SR TABLET PO ONE (07:15)
[2021-12-05] MEDS: SYMBICORT 160/4.5MCG INHALER 6GM INH SCH (07:22)
[2021-12-05] MEDS: DOXYCYCLINE HYCLATE 100MG TABLET PO SCH (09:11)
[2021-12-05] MEDS: CEFUROXIME 500 MG TAB PO SCH (09:11)
[2021-12-05] MEDS: guaiFENesin ER 600 MG TAB PO SCH (09:11)
[2021-12-05] MEDS: ENOXAPARIN 40MG/0.4ML SYRINGE (J1650 PER 10MG) SC SCH (09:12)
[2021-12-05] MEDS: SODIUM CHLORIDE NASAL 0.65% SPRAY BTL (OCEAN) SCH (09:12)
[2021-12-05] MEDS: POLYVINYL ALCOHOL OPHTH SOLN 15 ML(LIQUITEARS) OU PRN (09:14)
[2021-12-05] MEDS ORDERED: NYST50SS SS (09:45)
[2021-12-05] MEDS ORDERED: ADV250INH INH (09:45)
[2021-12-05] MEDS ORDERED: DOXY100T PO (09:45)
[2021-12-05] MEDS ORDERED: CEFU50TA PO (09:45)
[2021-12-05] MEDS ORDERED: PROAAER10 INH (10:36)
[2021-12-05] MEDS ORDERED: PRED20TA PO (10:36)
[2021-12-05] MEDS ORDERED: CEFD300C41 PO (10:36)
== END 2021-12-05 13:34 | disposition home health service (06) | DRG 202 ==
LOC: EDBD 16:52 → M ED 16:52 → M ED INP 16:53 → M MSPAV 22:56 → OBSVTOIN 12-01 13:31
PROVIDERS: ADMIT Family Medicine; ATTEND Internal Medicine
DX: J20.4 Acute bronchitis due to parainfluenza virus (principal); E43 Unspecified severe protein-calorie malnutrition; J44.1 Chronic obstructive pulmonary disease with (acute) exacerbation; Z68.1 Body mass index [BMI] 19.9 or less, adult; I11.9 Hypertensive heart disease without heart failure; G43.909 Migraine, unspecified, not intractable, without status migrainosus; K21.9 Gastro-esophageal reflux disease without esophagitis; I25.10 Atherosclerotic heart disease of native coronary artery without angina pectoris; G25.0 Essential tremor; E78.5 Hyperlipidemia, unspecified; E03.9 Hypothyroidism, unspecified; R63.6 Underweight; F41.9 Anxiety disorder, unspecified; F32.A Depression, unspecified; Z86.73 Personal history of transient ischemic attack (TIA), and cerebral infarction without residual deficits; M10.9 Gout, unspecified; Z79.899 Other long term (current) drug therapy; Z79.82 Long term (current) use of aspirin; Z88.0 Allergy status to penicillin; Z88.2 Allergy status to sulfonamides; Z88.8 Allergy status to other drugs, medicaments and biological substances

== ENCOUNTER → 2021-12-26 | Outpatient (CLI) | payer MEDICARE, OTHER ==
[~2021-12-26] MED LIST changes: +ADV250INH INH; +CEFD300C41 PO; +CEFU50TA PO; +DOXY-443 PO; +DOXY100T PO; +NYST50SS SS; +PRED20TA PO
[2021-12-26 15:28] LABS: HEMATOCRIT 44.3 % (36.0-47.0); HEMOGLOBIN 13.9 g/dl (12.0-15.5); MEAN CORPUSCULAR HEMOGLOBIN 29.9 pg (27.0-33.0); MEAN CORPUSCULAR HGB CONC 31.4 g/dl (32.0-36.5); MEAN CORPUSCULAR VOLUME 95.3 fl (80.0-96.0); PLATELET COUNT, AUTOMATED 214 10^3/uL (150-450); RED BLOOD COUNT 4.65 10^6/uL (4.00-5.40); WHITE BLOOD COUNT 4.2 10^3/uL (4.0-10.0)
[2021-12-26 15:55] LABS: HEMOGLOBIN A1c 6.3 %
[2021-12-26 16:34] LABS: BLOOD UREA NITROGEN 41 MG/DL (7-18); CARBON DIOXIDE LEVEL 30 MEQ/L (21-32); CHLORIDE LEVEL 106 MEQ/L (98-107); CREATININE FOR GFR 1.07 MG/DL (0.55-1.30); GLOMERULAR FILTRATION RATE 51.6 (>32); GLUCOSE, FASTING 85 MG/DL (70-100); POTASSIUM SERUM 4.9 MEQ/L (3.5-5.1); SODIUM LEVEL 140 MEQ/L (136-145)
[2021-12-26 16:35] LABS: ALBUMIN 3.2 GM/DL (3.2-5.2); ALT/SGPT 46 U/L (12-78); BILIRUBIN,TOTAL 0.5 MG/DL (0.2-1.0); CALCIUM LEVEL 8.7 MG/DL (8.8-10.2); CHOLESTEROL LEVEL 188 MG/DL (<200); CHOLESTEROL RISK RATIO 2.292 (<5); FREE T4 1.18 NG/DL (0.76-1.46); HDL CHOLESTEROL 82 MG/DL (>40); LDL CHOLESTEROL 95 MG/DL (<100); NON-HDL-C 106 MG/DL; TOTAL PROTEIN 6.6 GM/DL (6.4-8.2); TRIGLYCERIDES LEVEL 55 MG/DL (<150)
[2021-12-26 16:42] LABS: MALB URINE SIEMENS 35.4 MG/L; MAU/CREAT RATIO 19.6 MCG/MG (0.0-30.0)
[2021-12-26 17:11] LABS: TOTAL 25(OH) VITAMIN D 84.8 NG/ML (30.0-100.0); VITAMIN B12 LEVEL > 2000 PG/ML (247-911)
== END ==
LOC: M WUC 11:23
PROVIDERS: ATTEND Internal Medicine Hematology
DX: E11.29 Type 2 diabetes mellitus with other diabetic kidney complication (principal); Z79.899 Other long term (current) drug therapy

== ENCOUNTER → 2022-01-15 | Outpatient (CLI) | payer MEDICARE, OTHER ==
[~2022-01-15] MED LIST changes: +ALEN70TA87 PO; -FOSA70TA PO
[2022-01-15 16:39] LABS: BASO # 0.1 10^3/uL (0.0-0.2); BASO % 0.9 % (0.0-1.0); EOS # 0.1 10^3/uL (0.0-0.5); EOS % 1.4 % (0.0-3.0); HEMATOCRIT 44.2 % (36.0-47.0); HEMOGLOBIN 13.8 g/dl (12.0-15.5); LYMPH # 0.5 10^3/uL (1.5-5.0); LYMPH % 8.1 % (24.0-44.0); MEAN CORPUSCULAR HEMOGLOBIN 30.3 pg (27.0-33.0); MEAN CORPUSCULAR HGB CONC 31.2 g/dl (32.0-36.5); MEAN CORPUSCULAR VOLUME 97.1 fl (80.0-96.0); MONO # 0.7 10^3/uL (0.0-0.8); MONO % 10.4 % (2.0-8.0); NEUTROPHILS # 5.1 10^3/uL (1.5-8.5); PLATELET COUNT, AUTOMATED 186 10^3/uL (150-450); RED BLOOD COUNT 4.55 10^6/uL (4.00-5.40); WHITE BLOOD COUNT 6.5 10^3/uL (4.0-10.0)
[2022-01-15 17:38] LABS: ALBUMIN 3.2 GM/DL (3.2-5.2); ALT/SGPT 44 U/L (12-78); BILIRUBIN,TOTAL 0.5 MG/DL (0.2-1.0); BLOOD UREA NITROGEN 28 MG/DL (7-18); CALCIUM LEVEL 9.3 MG/DL (8.8-10.2); CARBON DIOXIDE LEVEL 29 MEQ/L (21-32); CHLORIDE LEVEL 107 MEQ/L (98-107); CREATININE FOR GFR 0.83 MG/DL (0.55-1.30); GLOMERULAR FILTRATION RATE > 60.0 (>32); GLUCOSE, FASTING 88 MG/DL (70-100); POTASSIUM SERUM 4.3 MEQ/L (3.5-5.1); SODIUM LEVEL 141 MEQ/L (136-145); TOTAL PROTEIN 6.3 GM/DL (6.4-8.2); URIC ACID 2.6 MG/DL (2.6-6.0)
== END ==
LOC: M WUC 12:54
PROVIDERS: ATTEND Physician Assistant
DX: M79.671 Pain in right foot (principal)

== ENCOUNTER 2022-01-29 13:39 | Emergency (ER) | payer MEDICARE, OTHER ==
[~2022-01-29] VITALS: Ht 154.9 cm; Wt 37.0 kg
[2022-01-29 14:25] LABS: HEMATOCRIT 43.2 % (36.0-47.0); HEMOGLOBIN 13.8 g/dl (12.0-15.5); MEAN CORPUSCULAR HEMOGLOBIN 29.9 pg (27.0-33.0); MEAN CORPUSCULAR HGB CONC 31.9 g/dl (32.0-36.5); MEAN CORPUSCULAR VOLUME 93.7 fl (80.0-96.0); PLATELET COUNT, AUTOMATED 196 10^3/uL (150-450); RED BLOOD COUNT 4.61 10^6/uL (4.00-5.40); WHITE BLOOD COUNT 5.3 10^3/uL (4.0-10.0)
[2022-01-29 14:50] LABS: BLOOD UREA NITROGEN 31 MG/DL (7-18); CALCIUM LEVEL 9.2 MG/DL (8.8-10.2); CARBON DIOXIDE LEVEL 29 MEQ/L (21-32); CHLORIDE LEVEL 107 MEQ/L (98-107); CREATININE FOR GFR 0.83 MG/DL (0.55-1.30); GLOMERULAR FILTRATION RATE > 60.0 (>32); GLUCOSE, FASTING 98 MG/DL (70-100); POTASSIUM SERUM 3.8 MEQ/L (3.5-5.1); SODIUM LEVEL 140 MEQ/L (136-145)
[2022-01-29] MEDS ORDERED: DOXY-443 PO (16:35)
[2022-01-29 17:47] VITALS: BP 150/72
== END 2022-01-29 18:08 | disposition home or self-care (01) ==
LOC: EDBD 13:39 → M ED 13:39
DX: R09.82 Postnasal drip (principal); R04.2 Hemoptysis; R91.1 Solitary pulmonary nodule; J47.9 Bronchiectasis, uncomplicated; I25.10 Atherosclerotic heart disease of native coronary artery without angina pectoris; E11.9 Type 2 diabetes mellitus without complications; J44.9 Chronic obstructive pulmonary disease, unspecified; E78.5 Hyperlipidemia, unspecified; Z86.73 Personal history of transient ischemic attack (TIA), and cerebral infarction without residual deficits

== ENCOUNTER → 2022-04-11 | Outpatient (CLI) | payer MEDICARE, OTHER ==
[~2022-04-11] MED LIST changes: +CLOP75TA99 PO; -PLAV1TAB2 PO
== END ==
LOC: M RAD 10:01
PROVIDERS: ATTEND Internal Medicine Pulmonary Disease
DX: R91.8 Other nonspecific abnormal finding of lung field (principal); J43.9 Emphysema, unspecified

== ENCOUNTER → 2022-05-24 | Outpatient (CLI) | payer MEDICARE, OTHER ==
[~2022-05-24] MED LIST changes: +NYST-38 SS; -NYST50SS SS
== END ==
LOC: M WUC 12:52
PROVIDERS: ATTEND Physician Assistant
DX: M79.672 Pain in left foot (principal); J06.9 Acute upper respiratory infection, unspecified; Z20.828 Contact with and (suspected) exposure to other viral communicable diseases

== ENCOUNTER → 2022-06-17 | Outpatient (CLI) | payer MEDICARE, OTHER ==
[2022-06-17 15:42] LABS: HEMOGLOBIN 14.7 g/dl (12.0-15.5); MEAN CORPUSCULAR HEMOGLOBIN 29.9 pg (27.0-33.0); MEAN CORPUSCULAR VOLUME 93.7 fl (80.0-96.0); PLATELET COUNT, AUTOMATED 189 10^3/uL (150-450); RED BLOOD COUNT 4.91 10^6/uL (4.00-5.40); WHITE BLOOD COUNT 4.6 10^3/uL (4.0-10.0)
[2022-06-17 16:03] LABS: CREATININE, URINE 153.4 MG/DL
[2022-06-17 16:06] LABS: HEMOGLOBIN A1c 5.7 % (4.0-6.0)
[2022-06-17 16:07] LABS: ALBUMIN 3.9 G/DL (3.2-5.2); ALKALINE PHOSPHATASE 104 U/L (46-116); ALT/SGPT 38 U/L (7.0-40); AST/SGOT 38 U/L (<34); BILIRUBIN,TOTAL 0.5 MG/DL (0.3-1.2); BLOOD UREA NITROGEN 33 MG/DL (9-23); C REACTIVE PROTEIN QUANTITATIV < 0.40 MG/DL (<1.0); CALCIUM LEVEL 9.3 MG/DL (8.3-10.6); CARBON DIOXIDE LEVEL 31 MMOL/L (20-31); CHLORIDE LEVEL 106 MMOL/L (98-107); CHOLESTEROL LEVEL 180 MG/DL (<200); CHOLESTEROL RISK RATIO 2.54 (<5); CREATININE FOR GFR 1.12 MG/DL (0.55-1.30); GLUCOSE, FASTING 97 MG/DL (74-106); HDL CHOLESTEROL 70.8 MG/DL (>40); LDL CHOLESTEROL 95.2 MG/DL (<100); NON-HDL-C 109 MG/DL; POTASSIUM SERUM 4.4 MMOL/L (3.5-5.1); SODIUM LEVEL 142 MMOL/L (136-145); THYROID STIMULATING HORMONE 1.789 uIU/ML (0.55-4.78); TOTAL PROTEIN 6.7 G/DL (5.7-8.2); TRIGLYCERIDES LEVEL 70 MG/DL (<150)
[2022-06-17 16:08] LABS: TOTAL 25(OH) VITAMIN D 104.7 NG/ML (20.0-100.0)
[2022-06-17 16:09] LABS: VITAMIN B12 LEVEL 1426 PG/ML (211-911)
== END ==
LOC: M PLALAB 12:44
PROVIDERS: ATTEND Internal Medicine Hematology
DX: E78.2 Mixed hyperlipidemia (principal)

== ENCOUNTER → 2022-08-26 | Outpatient (CLI) | payer MEDICARE, OTHER | LOC: M WHC 13:27 | PROVIDERS: ATTEND Obstetrics & Gynecology | DX: Z12.31 Encounter for screening mammogram for malignant neoplasm of breast (principal); R92.8 Other abnormal and inconclusive findings on diagnostic imaging of breast ==

== ENCOUNTER → 2022-09-11 | Outpatient (CLI) | payer MEDICARE, OTHER ==
[~2022-09-11] MED LIST changes: +POTA-298 PO; -POTA1TAB14 PO
== END ==
LOC: M WHC 08:27
PROVIDERS: ATTEND Obstetrics & Gynecology
DX: R92.2 Inconclusive mammogram (principal)
CPT/HCPCS: 77065; G0279

== ENCOUNTER → 2022-10-28 | Outpatient (CLI) | payer MEDICARE, OTHER ==
[2022-10-28 14:35] LABS: HEMATOCRIT 43.1 % (36.0-47.0); HEMOGLOBIN 13.8 g/dl (12.0-15.5); MEAN CORPUSCULAR HEMOGLOBIN 30.9 pg (27.0-33.0); MEAN CORPUSCULAR VOLUME 96.4 fl (80.0-96.0); PLATELET COUNT, AUTOMATED 207 10^3/uL (150-450); RED BLOOD COUNT 4.47 10^6/uL (4.00-5.40); WHITE BLOOD COUNT 6.1 10^3/uL (4.0-10.0)
[2022-10-28 14:40] LABS: ALBUMIN 3.4 G/DL (3.2-5.2); ALKALINE PHOSPHATASE 102 U/L (46-116); ALT/SGPT 40 U/L (7.0-40); AST/SGOT 25 U/L (<34); BILIRUBIN,TOTAL 0.5 MG/DL (0.3-1.2); BLOOD UREA NITROGEN 27 MG/DL (9-23); CALCIUM LEVEL 9.1 MG/DL (8.3-10.6); CARBON DIOXIDE LEVEL 31 MMOL/L (20-31); CHLORIDE LEVEL 105 MMOL/L (98-107); CHOLESTEROL LEVEL 152 MG/DL (<200); CHOLESTEROL RISK RATIO 2.42 (<5); CREATININE FOR GFR 0.84 MG/DL (0.55-1.30); GLOMERULAR FILTRATION RATE > 60.0 (>32); GLUCOSE, FASTING 89 MG/DL (74-106); HDL CHOLESTEROL 62.7 MG/DL (>40); LDL CHOLESTEROL 76.7 MG/DL (<100); NON-HDL-C 89.3 MG/DL; POTASSIUM SERUM 4.2 MMOL/L (3.5-5.1); SODIUM LEVEL 142 MMOL/L (136-145); THYROID STIMULATING HORMONE 2.074 uIU/ML (0.55-4.78); TOTAL 25(OH) VITAMIN D 95.4 NG/ML (20.0-100.0); TOTAL PROTEIN 6.4 G/DL (5.7-8.2); TRIGLYCERIDES LEVEL 63 MG/DL (<150)
[2022-10-28 14:41] LABS: FREE T4 1.06 NG/DL (0.89-1.76); VITAMIN B12 LEVEL 1084 PG/ML (211-911)
[2022-10-28 14:57] LABS: HEMOGLOBIN A1c 5.8 % (4.0-6.0)
[2022-10-28 15:05] LABS: CREATININE, URINE 277.5 MG/DL; MAU/CREAT RATIO 28.1 MCG/MG (0.0-30.0)
== END ==
LOC: M PLALAB 10:31
PROVIDERS: ATTEND Internal Medicine Hematology
DX: E78.2 Mixed hyperlipidemia (principal); E11.9 Type 2 diabetes mellitus without complications; E03.9 Hypothyroidism, unspecified; L85.3 Xerosis cutis; G25.2 Other specified forms of tremor; E53.8 Deficiency of other specified B group vitamins; M81.0 Age-related osteoporosis without current pathological fracture

== ENCOUNTER → 2022-12-03 | Outpatient (CLI) | payer MEDICARE, OTHER ==
[~2022-12-03] MED LIST changes: +ISOVUE-370 76% 100ML VIAL ONE
== END ==
LOC: M PLAIMG 10:12
PROVIDERS: ATTEND Otolaryngology
DX: J34.2 Deviated nasal septum (principal); J34.1 Cyst and mucocele of nose and nasal sinus; M27.0 Developmental disorders of jaws; R91.1 Solitary pulmonary nodule; M47.812 Spondylosis without myelopathy or radiculopathy, cervical region; I65.21 Occlusion and stenosis of right carotid artery
CPT/HCPCS: 70491; Q9967

== ENCOUNTER → 2022-12-04 | Outpatient (CLI) | payer MEDICARE, OTHER ==
[~2022-12-04] MED LIST changes: +E-Z-GAS II EFFERVESCENT PACKET (SODIUM BICARB./CITRIC ACID/SIMETHICONE) As Ordered ONE; +E-Z-HD 98% w/w 340GM SUSP BTL As Ordered ONE; +E-Z-PAQUE 96% w/w SUSP 176GM BTL As Ordered ONE; -ISOVUE-370 76% 100ML VIAL ONE
== END ==
LOC: M RAD 09:57
PROVIDERS: ATTEND Otolaryngology
DX: R13.10 Dysphagia, unspecified (principal)

== ENCOUNTER → 2023-01-21 | Outpatient (CLI) | payer MEDICARE, OTHER ==
[~2023-01-21] MED LIST changes: -E-Z-GAS II EFFERVESCENT PACKET (SODIUM BICARB./CITRIC ACID/SIMETHICONE) As Ordered ONE; -E-Z-HD 98% w/w 340GM SUSP BTL As Ordered ONE; -E-Z-PAQUE 96% w/w SUSP 176GM BTL As Ordered ONE; +EZET10TA58 PO; -ZETI10TA16 PO
== END ==
LOC: M RAD 10:04
PROVIDERS: ATTEND Otolaryngology
DX: E04.1 Nontoxic single thyroid nodule (principal)

== ENCOUNTER → 2023-03-10 | Outpatient (CLI) | payer MEDICARE, OTHER ==
[~2023-03-10] MED LIST changes: -CEFD300C41 PO; +CEFD300C42 PO; +LIDOCAINE 1% MDV 20ML VIAL As Ordered ONE
[2023-03-10 09:43] VITALS: TEMP 98.7
[2023-03-10 10:46] VITALS: BP 130/78; O2SAT 99
== END ==
LOC: M IRPRO 09:37
PROVIDERS: ATTEND Otolaryngology
DX: E04.1 Nontoxic single thyroid nodule (principal)

== ENCOUNTER → 2023-06-11 | Outpatient (CLI) | payer MEDICARE, OTHER ==
[~2023-06-11] MED LIST changes: +CEFD1CAP9 PO; -CEFD300C42 PO; -LIDOCAINE 1% MDV 20ML VIAL As Ordered ONE
[2023-06-11 13:43] LABS: HEMATOCRIT 42.9 % (36.0-47.0); HEMOGLOBIN 13.8 g/dl (12.0-15.5); MEAN CORPUSCULAR HEMOGLOBIN 30.4 pg (27.0-33.0); MEAN CORPUSCULAR HGB CONC 32.2 g/dl (32.0-36.5); MEAN CORPUSCULAR VOLUME 94.5 fl (80.0-96.0); PLATELET COUNT, AUTOMATED 196 10^3/uL (150-450); RED BLOOD COUNT 4.54 10^6/uL (4.00-5.40); WHITE BLOOD COUNT 5.3 10^3/uL (4.0-10.0)
[2023-06-11 13:52] LABS: HEMOGLOBIN A1c 5.9 % (4.0-6.0)
[2023-06-11 13:55] LABS: CREATININE, URINE 121.8 MG/DL; MAU/CREAT RATIO 55.8 MCG/MG (0.0-30.0)
[2023-06-11 13:58] LABS: C REACTIVE PROTEIN QUANTITATIV < 0.40 MG/DL (<1.0)
[2023-06-11 14:00] LABS: ALBUMIN 3.4 G/DL (3.2-5.2); ALKALINE PHOSPHATASE 91 U/L (46-116); ALT/SGPT 30 U/L (7.0-40); AST/SGOT 30 U/L (<34); BILIRUBIN,TOTAL 0.5 MG/DL (0.3-1.2); BLOOD UREA NITROGEN 32 MG/DL (9-23); CARBON DIOXIDE LEVEL 31 MMOL/L (20-31); CHLORIDE LEVEL 105 MMOL/L (98-107); CHOLESTEROL LEVEL 180 MG/DL (<200); CREATININE FOR GFR 0.92 MG/DL (0.55-1.30); FREE T4 1.12 NG/DL (0.89-1.76); GLOMERULAR FILTRATION RATE > 60.0 (>32); GLUCOSE, FASTING 85 MG/DL (74-106); HDL CHOLESTEROL 69.2 MG/DL (>40); LDL CHOLESTEROL 100.6 MG/DL (<100); NON-HDL-C 110.8 MG/DL; POTASSIUM SERUM 4.6 MMOL/L (3.5-5.1); SODIUM LEVEL 142 MMOL/L (136-145); THYROID STIMULATING HORMONE 3.216 uIU/ML (0.55-4.78); TOTAL PROTEIN 6.9 G/DL (5.7-8.2); TRIGLYCERIDES LEVEL 51 MG/DL (<150)
[2023-06-11 14:02] LABS: TOTAL 25(OH) VITAMIN D 98.8 NG/ML (20.0-100.0); VITAMIN B12 LEVEL 1362 PG/ML (211-911)
== END ==
LOC: M PLALAB 11:02
PROVIDERS: ATTEND Internal Medicine Hematology
DX: E11.40 Type 2 diabetes mellitus with diabetic neuropathy, unspecified (principal); E78.2 Mixed hyperlipidemia; E03.9 Hypothyroidism, unspecified; M81.0 Age-related osteoporosis without current pathological fracture; G25.0 Essential tremor

== ENCOUNTER → 2023-07-16 | Outpatient (CLI) | payer MEDICARE, OTHER | LOC: M RAD 10:01 | PROVIDERS: ATTEND Otolaryngology | DX: E04.2 Nontoxic multinodular goiter (principal) ==

== ENCOUNTER → 2023-09-15 | Outpatient (CLI) | payer MEDICARE, OTHER ==
[~2023-09-15] MED LIST changes: +DOXY-323 PO; -DOXY-443 PO
== END ==
LOC: M WHC 12:26
PROVIDERS: ATTEND Obstetrics & Gynecology
DX: Z12.31 Encounter for screening mammogram for malignant neoplasm of breast (principal); Z13.820 Encounter for screening for osteoporosis; M81.0 Age-related osteoporosis without current pathological fracture; M85.89 Other specified disorders of bone density and structure, multiple sites; R92.323 Mammographic fibroglandular density, bilateral breasts

== ENCOUNTER → 2023-11-03 | Outpatient (CLI) | payer MEDICARE, OTHER | LOC: M WHC 13:49 | PROVIDERS: ATTEND Surgery Vascular Surgery | DX: I65.23 Occlusion and stenosis of bilateral carotid arteries (principal) ==

== ENCOUNTER → 2023-12-01 | Outpatient (CLI) | payer MEDICARE, OTHER ==
[2023-12-01 16:53] LABS: THYROID STIMULATING HORMONE 1.264 uIU/ML (0.55-4.78)
[2023-12-01 16:54] LABS: FREE T4 1.15 NG/DL (0.89-1.76)
== END ==
LOC: M PLALAB 11:59
PROVIDERS: ATTEND Internal Medicine Hematology
DX: E11.40 Type 2 diabetes mellitus with diabetic neuropathy, unspecified (principal)

== ENCOUNTER → 2023-12-02 | Outpatient (CLI) | payer MEDICARE, OTHER ==
[2023-12-02 14:06] LABS: BASO # 0.1 10^3/uL (0.0-0.2); BASO % 1.1 % (0.0-1.0); EOS # 0.1 10^3/uL (0.0-0.5); EOS % 1.8 % (0.0-3.0); HEMATOCRIT 42.6 % (36.0-47.0); HEMOGLOBIN 13.9 g/dl (12.0-15.5); LYMPH # 0.8 10^3/uL (1.5-5.0); LYMPH % 16.7 % (24.0-44.0); MEAN CORPUSCULAR HEMOGLOBIN 30.6 pg (27.0-33.0); MEAN CORPUSCULAR HGB CONC 32.6 g/dl (32.0-36.5); MEAN CORPUSCULAR VOLUME 93.8 fl (80.0-96.0); MONO # 0.5 10^3/uL (0.0-0.8); MONO % 10.9 % (2.0-8.0); NEUTROPHILS # 3.1 10^3/uL (1.5-8.5); NEUTROPHILS % 69.3 % (36.0-66.0); PLATELET COUNT, AUTOMATED 197 10^3/uL (150-450); RED BLOOD COUNT 4.54 10^6/uL (4.00-5.40); WHITE BLOOD COUNT 4.5 10^3/uL (4.0-10.0)
[2023-12-02 14:24] LABS: HEMOGLOBIN A1c 5.7 % (4.0-6.0)
[2023-12-02 14:36] LABS: C REACTIVE PROTEIN QUANTITATIV < 0.40 MG/DL (<1.0); CREATININE, URINE 124.2 MG/DL; MAU/CREAT RATIO 26.5 MCG/MG (0.0-30.0)
[2023-12-02 14:37] LABS: ALBUMIN 3.6 G/DL (3.2-5.2); ALKALINE PHOSPHATASE 95 U/L (46-116); ALT/SGPT 28 U/L (7.0-40); AST/SGOT 23 U/L (<34); BILIRUBIN,TOTAL 0.6 MG/DL (0.3-1.2); BLOOD UREA NITROGEN 36 MG/DL (9-23); CALCIUM LEVEL 9.5 MG/DL (8.3-10.6); CARBON DIOXIDE LEVEL 32 MMOL/L (20-31); CHLORIDE LEVEL 107 MMOL/L (98-107); CHOLESTEROL LEVEL 174 MG/DL (<200); CHOLESTEROL RISK RATIO 2.61 (<5); GLOMERULAR FILTRATION RATE 55.6 (>32); GLUCOSE, FASTING 87 MG/DL (74-106); HDL CHOLESTEROL 66.5 MG/DL (>40); LDL CHOLESTEROL 94.3 MG/DL (<100); NON-HDL-C 107.5 MG/DL; POTASSIUM SERUM 4.4 MMOL/L (3.5-5.1); SODIUM LEVEL 141 MMOL/L (136-145); THYROID STIMULATING HORMONE 1.536 uIU/ML (0.55-4.78); TOTAL 25(OH) VITAMIN D 94.9 NG/ML (20.0-100.0); TOTAL PROTEIN 6.5 G/DL (5.7-8.2); TRIGLYCERIDES LEVEL 66 MG/DL (<150)
[2023-12-02 14:38] LABS: VITAMIN B12 LEVEL 1179 PG/ML (211-911)
[2023-12-02 14:39] LABS: FREE T4 1.19 NG/DL (0.89-1.76)
== END ==
LOC: M PLALAB 11:58
PROVIDERS: ATTEND Internal Medicine Hematology
DX: E11.29 Type 2 diabetes mellitus with other diabetic kidney complication (principal)

== ENCOUNTER → 2024-02-03 | Outpatient (CLI) | payer MEDICARE, OTHER | LOC: M WHC 12:32 | PROVIDERS: ATTEND Otolaryngology | DX: E04.2 Nontoxic multinodular goiter (principal) ==

== ENCOUNTER → 2024-02-10 | Outpatient (CLI) | payer MEDICARE, OTHER ==
[2024-02-10 13:38] LABS: BASO # 0.1 10^3/uL (0.0-0.2); BASO % 0.9 % (0.0-1.0); EOS # 0.1 10^3/uL (0.0-0.5); EOS % 2.1 % (0.0-3.0); HEMATOCRIT 42.5 % (36.0-47.0); HEMOGLOBIN 13.7 g/dl (12.0-15.5); LYMPH # 0.9 10^3/uL (1.5-5.0); MEAN CORPUSCULAR HEMOGLOBIN 30.2 pg (27.0-33.0); MEAN CORPUSCULAR HGB CONC 32.2 g/dl (32.0-36.5); MEAN CORPUSCULAR VOLUME 93.8 fl (80.0-96.0); MONO # 0.7 10^3/uL (0.0-0.8); MONO % 10.6 % (2.0-8.0); NEUTROPHILS # 4.9 10^3/uL (1.5-8.5); NEUTROPHILS % 73.2 % (36.0-66.0); PLATELET COUNT, AUTOMATED 218 10^3/uL (150-450); RED BLOOD COUNT 4.53 10^6/uL (4.00-5.40); WHITE BLOOD COUNT 6.6 10^3/uL (4.0-10.0)
[2024-02-10 14:04] LABS: ALBUMIN 3.3 G/DL (3.2-5.2); BILIRUBIN,TOTAL 0.5 MG/DL (0.3-1.2); CALCIUM LEVEL 9.5 MG/DL (8.3-10.6); CHOLESTEROL RISK RATIO 2.98 (<5); GLOMERULAR FILTRATION RATE 55.6 (>32); HDL CHOLESTEROL 59.6 MG/DL (>40); LDL CHOLESTEROL 107.4 MG/DL (<100); NON-HDL-C 118.4 MG/DL; POTASSIUM SERUM 4.9 MMOL/L (3.5-5.1); TOTAL PROTEIN 6.7 G/DL (5.7-8.2)
[2024-02-10 14:05] LABS: THYROID STIMULATING HORMONE 1.77 uIU/ML (0.55-4.78)
== END ==
LOC: M PLALAB 11:32
PROVIDERS: ATTEND Internal Medicine Cardiovascular Disease
DX: R06.02 Shortness of breath (principal); I25.10 Atherosclerotic heart disease of native coronary artery without angina pectoris; I35.8 Other nonrheumatic aortic valve disorders; E03.9 Hypothyroidism, unspecified; I10 Essential (primary) hypertension

== ENCOUNTER → 2024-07-19 | Outpatient (CLI) | payer MEDICARE, OTHER ==
[~2024-07-19] MED LIST changes: -ADV250INH INH; +ADVA1AER9 INH; -DOXY-323 PO; +DOXY-441 PO
== END ==
LOC: M RAD 11:46
PROVIDERS: ATTEND Otolaryngology
DX: E04.2 Nontoxic multinodular goiter (principal)